=== PATIENT | female | born 1965 | race Caucasian/White ===

== ENCOUNTER → 2019-03-18 09:41 | Outpatient (BNVA) | payer MEDICARE, OTHER, SELFPAY | PROVIDERS: Family Provider Internal Medicine; PCP Internal Medicine; Visit Provider Internal Medicine | DX: J44.9 Chronic obstructive pulmonary disease, unspecified (principal); I50.812 Chronic right heart failure; F32.9 Major depressive disorder, single episode, unspecified; E88.01 Alpha-1-antitrypsin deficiency; M51.17 Intervertebral disc disorders with radiculopathy, lumbosacral region | CPT/HCPCS: 80053; 84443; 85025 ==

== ENCOUNTER 2019-07-15 07:55 | Outpatient (CLI) | payer MEDICARE, OTHER, SELFPAY ==
--- NOTE | 2019-07-15 08:30 | CT_ITS ---
WS: [id number] CT CHEST TECHNIQUE: Noncontrast CT of the chest with coronal and sagittal reformatted images. CLINICAL INFORMATION: hemoptysis COMPARISON: CTA chest 01/26/2018 and 01/07/2018. CT chest November 03, 2017, July 09, 2017. DLP: 723.[address] scans at [facility] use at least one of these dose optimization techniques: automat ed exposure control; mA and/or kV adjustment per patient size (includes targeted exams where dose is matched to clinical indication); or iterative reconstruction. FINDINGS: Severe chronic bullous emphysematous change worse in the lung apices. Hyperinflation. Previously righ t middle lobe and right lower lobe infiltrates and atelectasis have resolved since the prior examinat ion. Slight atelectasis in the lingula. No acute-appearing pulmonary infiltrates today. No consolidat ion or pleural fluid. No suspicious pulmonary parenchymal abnormalities. No mediastinal or hilar lymphadenopathy. Previously described right hilar lymph node measuring 9 mm h as decreased in size. No axillary lymphadenopathy. Adrenal glands are normal. Upper abdominal aorta i s normal. Cardiomegaly. No significant pericardial effusion. Small hiatal hernia. CT/CT chest wo con [id number] IMPRESSION: 1. Severe chronic emphysematous changes with bullous formation. 2. Previously described pulmonary infiltrates have resolved. No new pulmonary infiltrates. 3. No suspicious pulmonary parenchymal abnormalities. 4. No mediastinal or hilar lymphadenopathy today.
== END 2019-07-15 07:56 | disposition home or self-care (01) ==
LOC: RADWPI 08:02
PROVIDERS: Family Provider Internal Medicine; PCP Internal Medicine; Visit Provider Internal Medicine Critical Care Medicine
DX: R04.2 Hemoptysis (principal)
CPT/HCPCS: 71250

== ENCOUNTER 2019-11-26 08:37 | Outpatient (CLI) | payer MEDICARE, OTHER, SELFPAY ==
--- NOTE | 2019-11-26 08:44 | XR_ITS ---
WS: [id number] Chest 2 views, 11/26/2019 Clinical Data: WL Comparison: Portable chest, 11/09/2018. Findings: No nodules, masses or effusions are seen. The heart is normal. The pulmonary vascularity is not increased. No pneumonia or pneumothorax is seen. The diaphragms are flattened. There is a healed left lateral sixth rib fracture. XR/XR chest 2V* [id number] Impression: Hyperinflation.
[2019-11-26 09:30] LABS: Basophils # 0.1 10^3/uL (0.0-0.1); Basophils % 0.6 %; Eosinophils # 0.2 10^3/uL (0.0-0.8); Eosinophils % 1.3 %; Hematocrit 48.5 % (37.0-47.0); Hemoglobin 15.9 g/dL (11.5-15.3); Lymphocytes # 2.2 10^3/uL (0.8-4.8); Lymphocytes % 14.5 %; Mean Corpuscular HGB Conc 32.8 g/dL (30.0-36.0); Mean Corpuscular Hemoglobin 30.4 pg (28.0-34.0); Mean Corpuscular Volume 92.7 fL (81-99); Mean Platelet Volume 12.3 fL (7.4-10.4); Monocytes # 1.1 10^3/uL (0.2-0.9); Neutrophils # 11.49 10^3/uL (1.8-7.7); Neutrophils % 76.1 %; Nucleated Red Blood Cells % 0 %; Platelet Count 306 10^3/cmm (130-400); Red Blood Count 5.23 10^6/uL (4.1-5.3); Red Cell Distribution Width 14.6 % (12.1-15.1); White Blood Count 15.1 10^3/uL (4.0-10.0)
[2019-11-26 10:09] LABS: Alanine Aminotransferase 17 U/L (0-33); Albumin Level 4.5 g/dL (3.5-5.2); Alkaline Phosphatase 100 IU/L (35-105); Anion Gap 15.3 (5-19); Aspartate Amino Transferase 23 U/L (0-32); Blood Urea Nitrogen 4 mg/dL (6-20); Calcium 9.4 mg/dL (8.5-10.5); Carbon Dioxide 30 mmol/L (22-29); Chloride 100 mmol/L (98-107); Globulin 3.2 g/dL (1.3-4.6); Glomerular Filtration Rate 87.5 mL/min (90-130); Glucose 103 mg/dL (65-115); Iron 87 ug/dL (37-145); Osmolality Calculated 290 mOsm/kg (285-295); Potassium 3.3 mmol/L (3.5-5.1); Sodium 142 mmol/L (136-145); Thyroid Stimulating Hormone 1.08 uIU/mL (0.27-4.20); Total Bilirubin 0.3 mg/dL (0.15-1.2); Total Iron Binding Capacity 217 mcg/dl; Total Protein 7.7 g/dL (6.6-8.7); Unsaturated Iron Binding 130 ug/dL (112-347); Vitamin B12 431 pg/mL (232-1245)
[2019-11-26 10:21] LABS: Slide Review Slide Review Perform
[2019-11-26 10:28] LABS: Folate Level < 2.0 ng/mL (4.8-37.3)
[2019-11-26 10:59] LABS: Erythrocyte Sedimentation Rate 15 mm/hr (0-15)
== END 2019-11-26 08:38 | disposition home or self-care (01) ==
LOC: RAD 08:42
PROVIDERS: PCP Internal Medicine; Visit Provider Internal Medicine
DX: R63.4 Abnormal weight loss (principal); E11.9 Type 2 diabetes mellitus without complications
CPT/HCPCS: 71046; 80053; 82607; 82746; 83540; 83550; 84443; 85025; 85651

== ENCOUNTER → 2019-11-29 08:44 | Outpatient (BNVA) | payer MEDICARE, OTHER, SELFPAY | PROVIDERS: Family Provider Internal Medicine; PCP Internal Medicine; Visit Provider Internal Medicine | DX: Z11.59 Encounter for screening for other viral diseases (principal) | CPT/HCPCS: 87635 ==

== ENCOUNTER 2019-12-01 09:42 | Outpatient (CLI) | payer MEDICARE, OTHER, SELFPAY ==
--- NOTE | 2019-12-01 09:55 | PFTS_ITS ---
Date of Study:12/01/19 Date of Dictation: MECHANICS: Forced vital capacity (FVC) is normal. Forced expiratory volume in one second (FEV1) is reduced. FEV1/FVC is reduced . FLOW VOLUME LOOP: reduced flow at all lung volumes with significant scooping. LUNG VOLUMES: Total lung capacity (TLC) is normal. Residual volume (RV) is increased. DIFFUSING CAPACITY FOR CARBON MONOXIDE: Normal. INTERPRETATION: The pulmonary function tests are consistent with moderate airflow obstruction. There is significant postbronchodilator response. Lung volumes are consistent with air trapping. Gas exchange (DLCO) is normal. MTDD
[2019-12-01 15:03] VITALS: O2SAT 79; O2SAT 94
== END 2019-12-01 09:43 | disposition home or self-care (01) ==
LOC: RT 09:43
PROVIDERS: Family Provider Internal Medicine; PCP Internal Medicine; Visit Provider Internal Medicine Critical Care Medicine
DX: J96.11 Chronic respiratory failure with hypoxia (principal)
CPT/HCPCS: 94060; 94726; 94729; J7611

== ENCOUNTER 2020-06-07 12:54 | Outpatient (CLI) | payer MEDICARE, OTHER, SELFPAY ==
--- NOTE | 2020-06-07 13:00 | CT_ITS ---
WS: [id number] LDCT LUNG CANCER SCREENING HISTORY: NICOTINE DEPENDENCE TECHNIQUE: Axial imaging performed from the apices to 1 cm below the costophrenic angles. Coronal and sagittal reformats are submitted with axial MIP series. All CT scans at [facility] use at least one of these dose optimization techniques: automated exposure control; mA and/or kV adjustment per patient size (includes targeted exams where dose is matched to clinical indication); or iterativ e reconstruction. DLP: 56.17 mGy.cm DIvol: 1.58 mGy COMPARISON: 07/15/2019 Diagnostic quality: Satisfactory Lung Nodules: No pulmonary nodules are identified. There are a few areas of mosaic attenuation from t he severe bullous emphysema. No subsolid nodule or endobronchial lesion. Lungs: Severe bullous emphysema. There are a few scattered benign granulomata. Heart: Normal size heart. No effusions. Other findings: Pulmonary hypertension. Mild atherosclerosis aorta. Small hiatal hernia. CT/CT lung screening [id number] IMPRESSION: LUNG-RADS: 1-Negative FOLLOW UP: 12 Month: Continue annual screening with LDCT OTHER FINDINGS (S MODIFIER): None.
== END 2020-06-07 12:55 | disposition home or self-care (01) ==
LOC: RAD 12:56
PROVIDERS: PCP Internal Medicine; Visit Provider Internal Medicine Critical Care Medicine
DX: Z12.2 Encounter for screening for malignant neoplasm of respiratory organs (principal); F17.210 Nicotine dependence, cigarettes, uncomplicated; I27.20 Pulmonary hypertension, unspecified; I70.0 Atherosclerosis of aorta; K44.9 Diaphragmatic hernia without obstruction or gangrene
CPT/HCPCS: 71271

== ENCOUNTER → 2020-10-24 10:52 | Outpatient (BNVA) | payer MEDICARE, OTHER, SELFPAY | PROVIDERS: PCP Internal Medicine; Visit Provider Internal Medicine | DX: J44.9 Chronic obstructive pulmonary disease, unspecified (principal); R64 Cachexia; I27.20 Pulmonary hypertension, unspecified; E78.5 Hyperlipidemia, unspecified | CPT/HCPCS: 80053; 82607; 82746; 83550; 84443; 85651 ==

== ENCOUNTER 2020-10-25 09:54 | Outpatient (CLI) | payer MEDICARE, OTHER, SELFPAY ==
--- NOTE | 2020-10-25 10:09 | XR_ITS ---
WS: [id number] Chest 2 views, 10/25/2020 Clinical Data: WL Comparison: PA and lateral chest, 11/26/2019. Findings: No nodules, masses or effusions are seen. The heart is normal. The pulmonary vascularity is not increased. No pneumonia or pneumothorax is seen. There is bullous emphysema throughout the lungs especially in the upper lobes. The diaphragms are flattened. There is a compression fracture of the T10 vertebral body and the L1 vertebral body with loss of 50% of the central vertebral body height. T hese fractures are of indeterminate age. XR/XR chest 2V* [id number] Impression: 1. Hyperinflation with bullous emphysema. 2. T10 and L1 compression fractures of indeterminate age.
== END 2020-10-25 09:55 | disposition home or self-care (01) ==
PROVIDERS: PCP Internal Medicine; Visit Provider Internal Medicine
DX: R63.4 Abnormal weight loss (principal); J43.8 Other emphysema; S22.079A Unspecified fracture of T9-T10 vertebra, initial encounter for closed fracture; S32.019A Unspecified fracture of first lumbar vertebra, initial encounter for closed fracture; X58.XXXA Exposure to other specified factors, initial encounter
CPT/HCPCS: 71046

== ENCOUNTER 2020-12-13 08:22 | Outpatient (CLI) | payer MEDICARE, OTHER, SELFPAY ==
--- NOTE | 2020-12-13 08:31 | XR_ITS ---
WS: [id number] Exam: XR thoracic spine 2V [id number] Date/Time of Exam: 12/13/2020 8:45 AM Reason For Exam: new compression fractures Compared to chest CT scan performed 06/07/2020. Compression fracture of the upper plate of T10 noted with about 50% loss of vertebral height and no s ignificant posterior displacement. This was present on the prior CT scan performed 06/07/2020. No othe r fractures of the T-spine are noted. Increased kyphosis and osteopenia noted. Paraspinal soft tissue s are unremarkable. XR/XR thoracic spine 2V [id number] IMPRESSION: 1. Compression fracture of the upper plate of T10 with about 50% loss in verteb ral height and no posterior displacement. This appears to represent a healed fr acture and can be seen on the previous chest CT scan dated 06/07/2020. 2. Mild degenerative changes, increased kyphosis and osteopenia. No other fract ures.
== END 2020-12-13 08:23 | disposition home or self-care (01) ==
LOC: RAD 08:28
PROVIDERS: PCP Internal Medicine; Visit Provider Internal Medicine
DX: S22.070A Wedge compression fracture of T9-T10 vertebra, initial encounter for closed fracture (principal); X58.XXXA Exposure to other specified factors, initial encounter
CPT/HCPCS: 72070

== ENCOUNTER → 2020-12-26 09:48 | Outpatient (BNVA) | payer MEDICARE, OTHER, SELFPAY | PROVIDERS: PCP Internal Medicine; Referring Provider Internal Medicine; Visit Provider Orthopaedic Surgery | DX: S22.071A Stable burst fracture of T9-T10 vertebra, initial encounter for closed fracture (principal); X58.XXXA Exposure to other specified factors, initial encounter; M54.9 Dorsalgia, unspecified | CPT/HCPCS: 72070; 72100 ==

== ENCOUNTER 2021-01-08 12:51 | Outpatient (CLI) | payer MEDICARE, OTHER, SELFPAY ==
--- NOTE | 2021-01-08 13:00 | MR_ITS ---
WS: [id number] MRI LUMBAR SPINE NONCONTRAST TECHNIQUE: Sagittal T1, T2 and STIR imaging. Axial T1 and T2 imaging. CLINICAL INFORMATION: M54.5 - Low back pain COMPARISON: MRI 2018 FINDINGS: Mild lumbar curve. No acute compression. Chronic compression with anterior wedging at T11. Mild compr ession superior endplate L2 with minimal retropulsion of the posterior superior cortex. Trace edema i n the superior endplate. This is likely subacute to chronic.This is new since 2018. L1-L2: Mild annular bulging. Slight effacement of ventral thecal sac. Mild facet arthropathy. Spinal canal and foramen are patent. L2-L3: Mild disc bulging eccentric to the left. Slight impingement on the left subarticular recess an d traversing left L3 nerve root. Mild central canal stenosis. Mild facet arthropathy. Foramen are pat ent. L3-L4: Mild disc bulging with mild central canal stenosis. Slight impingement on the traversing L4 ne rve roots bilaterally. Foramen are patent. L4-L5: Mild annular bulging. Slight impingement traversing left L5 nerve root. Mild facet arthropathy . Mild bilateral proximal foraminal narrowing. L5-S1: Mild annular bulging with osteophytic ridging. Moderate facet arthropathy. Spinal canal and fo ramen are patent. Visualized pelvic bony structures: Normal. Paravertebral soft tissues: Normal. MR/MR lumbar spine wo con* [id number] IMPRESSION: 1. Mild lumbar curve. 2. Mild compression superior endplate L2 is new since 2018. Trace edema in the superior endplate with minimal retropulsion. This likely subacute to chronic. 3. Chronic appearing anterior wedging and compression of the T11 vertebral bod y. 4. Disc bulging L2-3 eccentric to the left with mild central canal stenosis an d impingement traversing left L3 nerve root. 5. Annular bulging L3-4 with impingement on traversing right greater than left L4 nerve roots. Mild central canal stenosis. 6. Mild annular bulging L4-5 impinges the traversing left L5 nerve root. 7. Moderate facet arthropathy L5-S1.
--- NOTE | 2021-01-08 13:00 | MR_ITS ---
WS: [id number] MRI THORACIC SPINE WITHOUT CONTRAST TECHNIQUE: Sagittal T1, T2 and STIR imaging. Axial T2 imaging. Noncontrast imaging obtained. CLINICAL INFORMATION: M54.5 - Low back pain COMPARISON: None. FINDINGS: Mild thoracic curve. Moderate thoracic kyphosis. Chronic appearing compression anterior wedging T11 v ertebral body. No significant edema. Subacute to chronic compression of the L2 superior endplate desc ribed on the lumbar spine MRI. Cord signal is normal. Small central disc protrusions more prominent at left T11-T12 with mild central canal stenosis and sl ight indentation on the left ventral thoracic cord. Moderate facet arthropathy in the lower thoracic spine. Normal caliber thoracic aorta. Small central protrusion cervical spine on the web assistant imaging at C5-6. MR/MR thoracic spin wo con* [id number] IMPRESSION: 1. Chronic appearing anterior wedging with compression T11 vertebral body. 2. Left pericentral protrusion T11-T12 impinges the left ventral thoracic cord with mild central canal stenosis. Cord signal is normal. 3. Moderate facet arthropathy lower thoracic spine. 4. Compression superior endplate L2 described on the lumbar spine MRI.
== END 2021-01-08 12:52 | disposition home or self-care (01) ==
LOC: RADSHAW 12:53 → WPI 12:58
PROVIDERS: PCP Internal Medicine; Visit Provider Orthopaedic Surgery
DX: M47.814 Spondylosis without myelopathy or radiculopathy, thoracic region (principal); M51.24 Other intervertebral disc displacement, thoracic region
CPT/HCPCS: 72146; 72148

== ENCOUNTER → 2021-01-31 09:53 | Outpatient (BNVA) | payer MEDICARE, OTHER, SELFPAY | PROVIDERS: PCP Internal Medicine; Visit Provider Anesthesiology Pain Medicine | DX: S22.000A Wedge compression fracture of unspecified thoracic vertebra, initial encounter for closed fracture (principal); S32.020A Wedge compression fracture of second lumbar vertebra, initial encounter for closed fracture; J44.9 Chronic obstructive pulmonary disease, unspecified; R64 Cachexia; I27.20 Pulmonary hypertension, unspecified; Z87.891 Personal history of nicotine dependence; Z79.891 Long term (current) use of opiate analgesic; V89.2XXA Person injured in unspecified motor-vehicle accident, traffic, initial encounter | CPT/HCPCS: 99204; 99205 ==

== ENCOUNTER → 2021-02-12 10:15 | Outpatient (BNVA) | payer MEDICARE, OTHER, SELFPAY | PROVIDERS: PCP Internal Medicine; Visit Provider Anesthesiology Pain Medicine | DX: Z20.822 Contact with and (suspected) exposure to COVID-19 (principal) | CPT/HCPCS: 87635 ==

== ENCOUNTER 2021-02-15 06:25 | Day surgery (SDC) | payer MEDICARE, OTHER, SELFPAY ==
[2021-02-14 15:52] VITALS: BMI 15.4
[2021-02-15] VITALS (9 sets, daily range): BP systolic 81–102; BP diastolic 50–63; PULSE 80–106; RESP 16–28; TEMP 36.4–37.3; O2SAT 90–100
--- NOTE | 2021-02-15 | SCC_ITS ---
PROCEDURE: 1. L2 Kyphoplasty 2. Fluoroscopic Guidance of the above 171 seconds of fluoroscopic guidance, for a cumulative dose of 48.87 mGy, was provided to Dr. Buck by the radiology department. C-arm images of the lumbar spine were saved for the patient's permanent record. [facility]
--- NOTE | 2021-02-15 06:59 | ECG_ITS ---
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 Measurements Intervals [place] Rate: 97 P: 71 ND: 124 QRS: 77 QRSD: 94 T: 57 QT: 395 QTc: 503 Interpretive Statements SINUS RHYTHM POSSIBLE ANTERIOR MYOCARDIAL INFARCTION , PROBABLY OLD [30 ms Q WAVE IN V3/V4, OR R < 0.2 mV IN V4] Compared to ECG 11/09/2018 08:01:52 Myocardial infarct finding now present Electronically Signed On 02-15-2021 16:07:53 RN EMERGENCY by Laura Collins M.D. [id number]
[2021-02-15] MEDS: sodium chloride 0.9% 1,000 ML 30 ML IV (07:19)
--- NOTE | 2021-02-15 07:44 | ANES.PREANE2 ---
Pre-Anesthetic Assessment Pre-Anesthetic Assessment: Height/Weight: Height 1.63 m Weight 40.823 kg Temp Pulse Resp BP Pulse Ox 98.7 F 106 H 17 91/63 98 02/15/21 06:42 02/15/21 06:42 02/15/21 06:42 02/15/21 06:42 02/15/21 06:42 Proposed Procedure: Operation Date: 02/15/21 08:20 Proposed Procedures p L2 Kyphoplasty S32.020A 53556(Not Applicable) - Francesco Buck MD Was Beta Yuni taken within 24 hours: Yes Was Clonidine taken within 24 hours: N/A Last intake: Intake Last Liquid Date 02/15/21 Last Liquid Time 00:00 Last Solid Date 02/15/21 Last Solid Time 00:00 Social: Social History: No alcohol and No tobacco Comment: COPD related to tobacco use in past Airway: Submandibular: WNL Cervical ROM: WNL (Limited extension) MP: 2 Dentition: Chipped Pulmonary: Pulmonary: COPD, YANEZ and SOB CV/HEM: CV/HEM: CHF Comments: Right sided heart failure per patient Sinus rhythm on EKG today, poor baseline on tracing : : None reported Hepatic: Hepatic: None reported GI: GI: None reported Metabolic: Metabolic: None reported Musc/skel: Musc/skel: None reported Neuropsych: Neuropsych: Anxiety Anesthetic Plan: ASA status: 4 Anesthesia: Anesthesia Evaluation, General and MAC Risk of > 500 ml blood loss (7ml/kg in children): No PFSH Anesthesia PFSH: Medical History Anxiety Chronic right heart failure COPD (chronic obstructive pulmonary disease) Cough with hemoptysis Dyslipidemia H/O Prinzmetal angina Heterozygous alpha 1-antitrypsin deficiency Intervertebral disc disorders with radiculopathy, lumbosacral region Low back pain Nicotine dependence, unspecified, uncomplicated Panlobular emphysema Reactive depression Surgical History History of esophagogastroduodenoscopy (EGD) 02/19/2016- HITAL HERNIA- ESOPHAGITIS- AND ESOPHAGEAL MONILIASIS Hx of tubal ligation S/P lumbar discectomy Family History Father Myocardial infarct Stroke Lung disease Hypertension Brother Myocardial infarct Sister Anemia Diabetes Lung disease Hypertension Beqgl-1-ohpwraobvex deficiency Mother Diabetes Lung disease Aoxwd-2-fvgzvhwynaa deficiency Social History Quit status (tobacco): considering quitting Second hand smoke exposure: Yes Smoking risk assessment/counseling performed?: Yes Alcohol intake: current Alcohol intake frequency: holidays/special occasions only Counseling given: Yes Counseling given: No Lives independently: Yes Household members: spouse Housing: House Marital status: Current occupational status: disabled History of recent travel: No Current gender identity: Female Data Anesthesia CBC & Chem 7: 02/15/21 07:15 Cardiac Studies: No Data to Display
[2021-02-15 08:10] LABS: Anion Gap 15.7 (5-19); Blood Urea Nitrogen 7 mg/dL (6-20); Calcium 8.2 mg/dL (8.5-10.5); Carbon Dioxide 26 mmol/L (22-29); Chloride 95 mmol/L (98-107); Creatinine Clr Calc Pharmacy 69.0778; Glomerular Filtration Rate 104.2 mL/min (90-130); Glucose 127 mg/dL (65-115); Osmolality Calculated 276 mOsm/kg (285-295); Potassium 3.7 mmol/L (3.5-5.1); Sodium 133 mmol/L (136-145)
--- NOTE | 2021-02-15 08:20 | W.PM.OPSUD ---
Surgery/Procedure H&P Update DATE OF PROCEDURE: February 15, 2021 DATE H&P PERFORMED: 01/31/21 H&P UPDATE INFORMATION: I have reviewed H&P completed within last 30 days and No changes to prior documentation PLANNED PROCEDURE: Operation Date: 02/15/21 08:20 Proposed Procedures p L2 Kyphoplasty S32.020A 45905(Not Applicable) - Francesco Buck MD
--- NOTE | 2021-02-15 08:22 | P.OP_ITS ---
Operative Report Date of procedure: February 15, 2021 . PREOPERATIVE DIAGNOSIS: T12 vertebral compression fracture POSTOPERATIVE DIAGNOSIS: Same PROCEDURE: 1. L2 Kyphoplasty 2. Fluoroscopic Guidance of the above SURGEON: Francesco Buck M.D. ANESTHESIA: Local Anesthesia PROCEDURE IN DETAIL: Informed consent was obtained, explaining risks, benefits, and alternatives of the procedure to the patient. Operative site was marked in the holding area. The patient was then taken to the procedure room and placed in the prone position on the procedure table. The back and buttocks were prepped with ChloraPrep solution and a sterile drape was applied. A time-out was performed to verify the correct patient, procedure, and location. Using fluoroscopy, the spine was examined. The ( L2) level was verified in AP and lateral views. I planned a bilateral trans pedicular approach. A skin wheal was raised and the subcutaneous tissues anesthetized with 1% lidocaine approximately 5ml on the right side. A small stab incision was made with a #15 blade. The introducer cannula was advanced to dock with the pedicle in an AP view. It was advanced through the pedicle using a mallet in both AP and lateral views, taking care not to traverse the medial aspect of the pedicle in the AP view until the tip was into the vertebral body. The cannula was advanced to the posterior third of the body in a lateral view. The manual drill was used to then create space into which deploy the balloon. Balloon was then placed and inflated. Position in AP and lateral views was optimal. Next a skin wheal was raised and the subcutaneous tissues anesthetized with 1% lidocaine approximately 5ml on the left side. A small stab incision was made with a #15 blade. The introducer cannula was advanced to dock with the pedicle in an AP view. It was advanced through the pedicle using a mallet in both AP and lateral views, taking care not to traverse the medial aspect of the pedicle in the AP view until the tip was into the vertebral body. The cannula was advanced to the posterior third of the body in a lateral view. The manual d rill was used to then create space into which deploy the balloon. Balloon was then placed and inflated. Position in AP and lateral views was optimal. Next I placed left and right coaxial 15mm balloon creating a cavity for the cement. Balloons were removed and I placed barium impregnated PMMA cement under direct fluoroscopic visualization ruling out extravasation or vascular uptake. There was good interdigitization and filling of the vertebral body. The cannulas were removed making sure not to withdraw any cement. 3-0 nylon was used to close the minimal incision and sterile dressing was applied. The patient tolerated the procedure well with no apparent complications. IMPRESSION: successful kyphoplasty of T12 vertebral body. Associated Problem List Diagnoses (1) Compression fracture of L2 lumbar vertebra:
[2021-02-15] MEDS: ceFAZolin 1,000 MG in sodium chloride 0.9% (plus) 50 ML 100 MG IV (08:27)
--- NOTE | 2021-02-15 08:34 | SC_ITS ---
WS: [id number] INTRAOPERATIVE TECHNIQUE: 4 Spot fluoroscopic images for intraoperative purposes. FLUOROSCOPY TIME: 63.2 seconds CLINICAL INFORMATION: SURGERY COMPARISON: None. FINDINGS: Kyphoplasty changes compression fracture near the thoracolumbar junction. SC/C-arm FL for Kyphoplasty IMPRESSION: Images obtained for intraoperative purposes.
[2021-02-15] MEDS: iohexol 300 mg/mL 50 mL Btl (OR ONLY) XX (08:59)
--- NOTE | 2021-02-15 09:26 | PM.PACU ---
Documented by User: Josh Perez CRNA 02/15/21 09:27 PACU note PACU note: VSS, Good respiratory effort, report to IRB COMPLIANCE COORDINATOR Post-Anesthesia Exam: awake
--- NOTE | 2021-02-15 13:16 | ANE.PACU2 ---
Inpatient post-anesthesia follow up: Airway intact: Yes Vital signs: Temperature 97.9 F Pulse Rate 80 Respiratory Rate 18 Blood Pressure 95/53 Pulse Oximetry 94 Oxygen Delivery Me thod Nasal Cannula Oxygen Flow Rate 3 Fraction of Inspir ed Oxygen Hydration adequate: Yes Nausea and vomiting: Yes Pain level: Baseline Mental status: Baseline
--- NOTE | 2021-02-15 13:17 | ANE.PACU2 ---
Inpatient post-anesthesia follow up: Airway intact: Yes Vital signs: Temperature 97.9 F Pulse Rate 80 Respiratory Rate 18 Blood Pressure 95/53 Pulse Oximetry 94 Oxygen Delivery Me thod Nasal Cannula Oxygen Flow Rate 3 Fraction of Inspir ed Oxygen Hydration adequate: Yes Nausea and vomiting: Yes Pain level: Back to baseline Mental status: Baseline
== END 2021-02-15 10:52 | disposition home or self-care (01) ==
PROVIDERS: Anesthesiology; PCP Internal Medicine; Visit Provider Anesthesiology Pain Medicine
PROC: (CPT 22514; principal; 2021-02-15 08:10)
DX: S32.020A Wedge compression fracture of second lumbar vertebra, initial encounter for closed fracture (principal); X58.XXXA Exposure to other specified factors, initial encounter; F17.210 Nicotine dependence, cigarettes, uncomplicated; I50.9 Heart failure, unspecified; F41.9 Anxiety disorder, unspecified; E78.5 Hyperlipidemia, unspecified; J43.9 Emphysema, unspecified; Z82.49 Family history of ischemic heart disease and other diseases of the circulatory system; Z83.3 Family history of diabetes mellitus
CPT/HCPCS: 22514; 76000; 80048; 93005; J0690; J2250; J2704; J3010; J7030

== ENCOUNTER 2021-02-17 19:24 | Emergency (ER) | payer MEDICARE, OTHER, SELFPAY ==
[2021-02-17 19:38] VITALS: BP 101/65; PULSE 98; RESP 16; TEMP 36.5; O2SAT 98
[2021-02-17 20:27] VITALS: BP 96/68; PULSE 84; RESP 16; O2SAT 98
--- NOTE | 2021-02-17 20:36 | XRR_ITS ---
PROCEDURE INFORMATION: Exam: XR Chest Exam date and time: 02/17/2021 8:36 PM Age: 55 years old Clinical indication: Pain; Chest pressure; Additional info: Cp TECHNIQUE: Imaging protocol: XR of the chest. Views: 1 view. COMPARISON: 1. CR XR chest 2V* [id number] 10/25/2020 10:[address] chest wo con [id number] 07/15/2019 8:31:27 AM FINDINGS: Lungs: Severe emphysema with scattered interstitial scarring. Increased interstitial opacities in the lung bases, right greater than left. Possible 1.9 cm nodular density in the right upper lobe. Pleural spaces: Unremarkable. No pleural effusion. No pneumothorax. Heart/Mediastinum: Unremarkable. No cardiomegaly. Bones/joints: Lumbar kyphoplasty. XR/XR chest 1V portable [id number] IMPRESSION: 1. Increased interstitial opacities in the lung bases could represent atelectasis or pulmonary edema. 2. Possible new 1.9 nodule in the right upper lobe. Follow-up with CT imaging is recommended. Radiation Dose CTDIVOL = (mGy): DLP = (mGy-cm)
--- NOTE | 2021-02-17 20:38 | ECG_ITS ---
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 Measurements Intervals [place] Rate: 87 P: 56 [place]: 142 QRS: 75 QRSD: 90 T: 52 QT: 409 QTc: 492 Interpretive Statements SINUS RHYTHM Compared to ECG 02/15/2021 07:25:30 Myocardial infarct finding no longer present Electronically Signed On 02-18-2021 13:17:09 STONE RUBBER by Junior Gaytan M.D. [id number]
--- NOTE | 2021-02-17 20:44 | USR_ITS ---
PROCEDURE INFORMATION: Exam: US Duplex Lower Extremity Veins, Bilateral Exam date and time: 02/17/2021 8:44 PM Age: 55 years old Clinical indication: Pain; Leg, lower; Left; Additional info: Bilateral leg swelling post op TECHNIQUE: Imaging protocol: Real-time duplex ultrasound of the extremities with 2-D way scale, color Doppler flow and spectral waveform analysis with image documentation. Complete exam focused on the bilateral lower extremity veins. COMPARISON: CTA Chest w Abd/Pel w* 12/03/2017 12:03 PM FINDINGS: Right deep veins: Unremarkable. The common femoral, femoral, proximal profunda femoral and popliteal veins are patent without thrombus. Normal Doppler waveforms. Normal compressibility and/or augmentation response. Right superficial veins: Saphenofemoral junction is patent without thrombus. Left deep veins: Nonocclusive thrombus and incomplete compressibility of the left peroneal vein. The other deep veins of the left lower extremity demonstrate normal flow, compressibility, and augmentation. Left superficial veins: Saphenofemoral junction is patent without thrombus. Soft tissues: Unremarkable. US/CV venous duplex [facility] [id number] IMPRESSION: 1. Nonocclusive deep vein thrombosis in the left peroneal vein. 2. No deep vein thrombosis in the right lower extremity. Radiation Dose CTDIVOL = (mGy): DLP = (mGy-cm)
--- NOTE | 2021-02-17 20:57 | ED_ITS ---
HPI - General Adult General: Chief complaint: General Medical Stated complaint: pain under L arm, legs swelling post surgery Time Seen by Provider: 02/17/21 19:44 History of Present Illness: HPI narrative: 55-year-old female who had surgery on her lumbar spine, minimally invasive, 2 days ago. She presents today with bilateral lower extremity swelling, and a pleuritic type pain to her left lateral chest wall. She noticed these yesterday, but they became worse today. She has had a bit of an increased cough since surgery, with no sputum production. No fever. She notes no significant calf tenderness. She is mildly short of breath.. She has no known history of coronary disease although she has been told that she had a heart attack in the past based on echocardiogram she had prior Onset (ago): day(s) (1) Location: chest Radiation: non-radiation Severity: moderate Quality: stabbing Pain Consistency: constant Exacerbating factors: movement and other Associated symptoms: Reports chest pain and cough; Deny confusion, diaphoresis, dyspnea, fevers/chills, headache(s), nausea, short of breath or vomiting Review of Systems Const: Denies: diaphoresis Card: Reports: chest pain Resp: Denies: dyspnea GI: Denies: nausea or vomiting Neuro: Denies: headache(s) or confusion PFSH ED PFSH: Medical History Anxiety Chronic right heart failure COPD (chronic obstructive pulmonary disease) Cough with hemoptysis Dyslipidemia H/O Prinzmetal angina Heterozygous alpha 1-antitrypsin deficiency Intervertebral disc disorders with radiculopathy, lumbosacral region Low back pain Nicotine dependence, unspecified, uncomplicated Panlobular emphysema Reactive depression Surgical History History of esophagogastroduodenoscopy (EGD) 02/19/2016- HITAL HERNIA- ESOPHAGITIS- AND ESOPHAGEAL MONILIASIS Hx of tubal ligation S/P lumbar discectomy Family History Father Myocardial infarct Stroke Lung disease Hypertension Brother Myocardial infarct Sister Anemia Diabetes Lung disease Hypertension Cbyfo-1-tovvpjkpyts deficiency Mother Diabetes Lung disease Hyask-1-bnclzyegfod deficiency Social History Quit status (tobacco): considering quitting Second hand smoke exposure: Yes Smoking risk assessment/counseling performed?: Yes Alcohol intake: current Alcohol intake frequency: holidays/special occasions only Counseling given: Yes Counseling given: No Lives independently: Yes Household members: spouse Housing: House Marital status: Current occupational status: disabled History of recent travel: No Current gender identity: Female Physical Exam Const: COMMON NORMALS: no acute distress, patient oriented x3 and alert HENMT: COMMON NORMALS: normocephalic HEAD & SCALP: normocephalic Chest: COMMONS NORMALS: normal inspection of the chest CHEST: Yes tenderness (left lateral chest wall) Resp: COMMON NORMALS: normal respiratory effort, No use of accessory muscles and clear to auscultation bilaterally AUSCULTATION: clear to auscultation bilaterally Cardio: COMMON NORMALS: regular rate and regular rhythm RATE: regular rate RHYTHM: regular rhythm GI: COMMON NORMALS: Normal to inspection, nondistended, normoactive bowel sounds present, Soft to palpation and non-tender PALPATION: Yes Soft to palpation Extremity: NARRATIVE EXTREMITY EXAM: minimal non pitting edema. Neuro: COMMON NORMALS: patient oriented x3 SENSORIUM/ORIENTATION: Yes alert Course Vital Signs: Vital signs: Vital Signs Temperature 97.7 F 02/17/21 19:38 Pulse Rate 81 02/18/21 00:47 Respiratory Rate 16 02/18/21 00:47 Blood Pressure 108/59 02/18/21 00:47 Pulse Oximetry 96 02/18/21 00:47 MDM - General Adult MDM Narrative: Medical decision making narrative: 55-year-old female had kyphoplasty a couple of days ago. She presents with leg pain and swelling, and the left lateral chest wall pain. Her white blood cell count is 17. Hemoglobin is 11. D-dimer minimally elevated at 0.7. Pain is reproducible to the left chest wall. Bilateral ultrasound Dopplers of the venous system reveal a left peroneal vein nonobstructive DVT. CTA is negative for pulmonary embolism. It does show a potentially new T11 compression fracture with other age- indeterminate fractures. This may be the source of her lateral chest pain. There is no infiltrate or other cause. Her delta troponin did not elevate. She will be treated with a loading dose of Eliquis followed by regular dose Eliquis for acute DVT. She will be treated with pain control for the T11 compression fracture. She will follow up with pain management and her PCP. As she was only on 2.5 apixaban twice daily, we would not consider this a complete failure of apixaban therapy Lab Data: Labs: Lab Results 02/17/21 02/17/21 02/17/21 20:44 20:44 20:44 WBC 17.0 10^3/uL H 10 ^3/uL (4.0-10.0) RBC 3.58 10^6/uL L 10 ^6/uL (4.1-5.3) Hgb 10.9 g/dL L g/dL (11.5-15.3) Hct 32.4 % L % (37.0-47.0) MCV 90.5 fl fl (81-99) MCH 30.4 pg pg (28.0-34.0) MCHC 33.6 g/dL g/dL (30.0-36.0) RDW 13.5 % % (12.1-15.1) Plt Count 632 10^3/cmm H 10 ^3/cmm (130-400) MPV 11.1 fL H fL (7.4-10.4) Neut % (Auto) 75.0 % % Lymph % (Auto) 14.4 % % Moffat % (Auto) 8.8 % % Eos % (Auto) 0.6 % % Baso % (Auto) 0.3 % % Neut # (Auto) 12.73 10^3/uL H 1 0^3/uL (1.8-7.7) Lymph # (Auto) 2.5 10^3/uL 10^3/ uL (0.8-4.8) Moffat # (Auto) 1.5 10^3/uL H 10^ 3/uL (0.2-0.9) Eos # (Auto) 0.1 10^3/uL 10^3/ uL (0.0-0.8) Baso # (Auto) 0.1 10^3/uL 10^3/ uL (0.0-0.1) Nucleated RBC % (a uto) 0 % % Nucleated RBCs # 0.0 /100WBC /100W BC D-Dimer 0.70 ug/mIFEU H u g/mIFEU (0-0.59) Sodium 135 mmol/L L mmol /L (136-145) Potassium 3.7 mmol/L mmol/L (3.5-5.1) Chloride 96 mmol/L L mmol/ L (98-107) Carbon Dioxide 28 mmol/L mmol/L (22-29) Anion Gap 14.7 (5-19) BUN 6 mg/dL mg/dL (6-20) Creatinine 0.6 mg/dL mg/dL (0.5-0.9) GFR Calculation 104.2 mL/min mL/m in (90-130) Glucose 93 mg/dL mg/dL (65-115) Calculated Osmolal ity 277 mOsm/kg L mOs m/kg (285-295) Lactate Calcium 8.4 mg/dL L mg/dL (8.5-10.5) Total Bilirubin 0.3 mg/dL mg/dL (0.15-1.2) AST 8 U/L U/L (0-32) ALT 9 U/L U/L (0-33) Alkaline Phosphata se 142 IU/L H IU/L (35-105) Troponin T Baselin e Troponin T 120 Min osmel Delta Troponin T C-Reactive Protein 149.1 mg/L H mg/L (0.0-4.9) NT-Pro-B Natriuret Pep 444 pg/mL H pg/mL (0-125) Total Protein 5.8 g/dL L g/dL (6.6-8.7) Albumin 3.1 g/dL L g/dL (3.5-5.2) Globulin 2.7 g/dL g/dL (1.3-4.6) 02/17/21 02/17/21 02/17/21 20:44 20:44 22:34 WBC RBC Hgb Hct MCV MCH MCHC RDW Plt Count MPV Neut % (Auto) Lymph % (Auto) Moffat % (Auto) Eos % (Auto) Baso % (Auto) Neut # (Auto) Lymph # (Auto) Moffat # (Auto) Eos # (Auto) Baso # (Auto) Nucleated RBC % (a uto) Nucleated RBCs # D-Dimer Sodium Potassium Chloride Carbon Dioxide Anion Gap BUN Creatinine GFR Calculation Glucose Calculated Osmolal ity Lactate 0.8 mmol/L mmol/L (0.5-2.2) Calcium Total Bilirubin AST ALT Alkaline Phosphata se Troponin T Baselin e 12 ng/L H ng/L (0-10) Troponin T 120 Min osmel 9.55 ng/L ng/L (0-10) Delta Troponin T -2.45 ABS# L ABS# (0-10) C-Reactive Protein NT-Pro-B Natriuret Pep Total Protein Albumin Globulin Discharge Plan Discharge Patient Disposition: Home Clinical Impression: Deep venous thrombosis Qualifiers: DVT location: lower extremity Affected thrombotic vein of extremity: peroneal Chronicity: acute Laterality: left Qualified Code(s): I82.452 - Acute embolism and thrombosis of left peroneal vein Closed wedge compression fracture of T11 vertebra Qualifiers: Encounter type: initial encounter Qualified Code(s): S22.080A - Wedge compression fracture of T11-T12 vertebra, initial encounter for closed fracture Condition: Stable Prescriptions: New apixaban 5 mg tablet 5 mg PO BID Qty: 74 RF: 0 No Action melatonin 5 mg capsule 15 mg PO .hs RF: 0 budesonide [Pulmicort] 0.5 mg/2 mL suspension for nebulization 0.5 mg inhalation BID RF: 0 alprazolam [Xanax] 0.5 mg tablet 0.5 mg PO BID PRN (Reason: anxiety) Qty: 60 RF: 1 oxycodone 5 mg tablet 5 mg PO Q6H PRN (Reason: pain) 30 Days Qty: 90 RF: 0 ipratropium-albuterol 0.5 mg-3 mg(2.5 mg base)/3 mL solution for nebulization 3 ml INHALATION Q6H PRN (Reason: shortness of breath or wheezing) 90 Days Qty: 1080 RF: 3 albuterol sulfate [ProAir HFA] 90 mcg/actuation HFA aerosol inhaler 2 puff INHALATION Q6H PRN (Reason: shortness of breath or wheezing) Qty: 18 RF: 3 Eliquis 2.5 mg tablet 2.5 mg PO BID Qty: 180 RF: 2 isosorbide mononitrate 60 mg tablet extended release 24 hr 60 mg PO QAM Qty: 30 RF: 5 aripiprazole [Abilify] 5 mg tablet 5 mg PO DAILY Qty: 90 RF: 3 prednisone 5 mg tablet See Rx Instructions .ROUTE .COMPLEX Qty: 90 RF: 3 lidocaine-prilocaine 2.5-2.5 % cream See Rx Instructions .ROUTE .COMPLEX Qty: 180 RF: 3 pantoprazole [Protonix] 40 mg tablet,delayed release (DR/EC) 40 mg PO DAILY Qty: 90 RF: 3 montelukast [Singulair] 10 mg tablet 10 mg PO DAILY Qty: 90 RF: 3 lidocaine [Lidoderm] 5 % adhesive patch,medicated 1 patch TOPICAL DAILY Qty: 90 RF: 3 fluoxetine 20 mg capsule See Rx Instructions .ROUTE .COMPLEX Qty: 270 RF: 3 ondansetron HCl 4 mg tablet 4 mg PO Q6H PRN (Reason: nausea and vomiting) Qty: 90 RF: 1 folic acid 1 mg tablet 1 mg PO DAILY Qty: 90 RF: 3 Brovana 15 mcg/2 mL solution for nebulization See Rx Instructions .ROUTE .COMPLEX Qty: 360 RF: 3 metoprolol succinate 50 mg tablet extended release 24 hr See Rx Instructions .ROUTE .COMPLEX Qty: 90 RF: 3 diazepam [Valium] 5 mg tablet 5 mg PO ONCE PRN (Reason: anxiety) 1 Days Qty: 1 RF: 0 nitroglycerin 0.4 mg tablet, sublingual See Rx Instructions .ROUTE .COMPLEX Qty: 25 RF: 1 azithromycin 250 mg tablet See Rx Instructions PO .COMPLEX Qty: 6 RF: 0 isosorbide mononitrate 30 mg tablet extended release 24 hr 30 mg PO DAILY RF: 0 Lipitor 10 mg tablet 10 mg PO .at bedtime RF: 0 Cardizem CD 180 mg capsule,extended release 24hr 180 mg PO QAM RF: 0 Lasix 20 mg tablet 20 mg PO QAM RF: 0 Discharge Orders: Discharge ED (Routine); Ordered 02/18/21 Ordered By: Adam Philippe Referrals: Ludin Schmitt MD [Primary Care Provider] - 4-7 days Francesco Buck MD [Physician] - 4-7 days Patient Instructions: Vertebral Compression Fracture (ED), Opioid Safety Activity Restrictions/Additional Instructions: For your new dose of apixaban, take 2 pills twice daily for the first week, then 1 pill twice daily. Return for worsening leg swelling, shortness of breath, chest discomfort, other concerning symptoms. Pain medication as directed by your painter sign maintenance. Coding Level of Care Code ED Commercial Teller for Chg Fwd Exam Detailed
[2021-02-17 21:03] LABS: Basophils # 0.1 10^3/uL (0.0-0.1); Basophils % 0.3 %; Eosinophils # 0.1 10^3/uL (0.0-0.8); Eosinophils % 0.6 %; Hematocrit 32.4 % (37.0-47.0); Hemoglobin 10.9 g/dL (11.5-15.3); Lymphocytes # 2.5 10^3/uL (0.8-4.8); Lymphocytes % 14.4 %; Mean Corpuscular HGB Conc 33.6 g/dL (30.0-36.0); Mean Corpuscular Hemoglobin 30.4 pg (28.0-34.0); Mean Corpuscular Volume 90.5 fl (81-99); Mean Platelet Volume 11.1 fL (7.4-10.4); Monocytes # 1.5 10^3/uL (0.2-0.9); Monocytes % 8.8 %; Neutrophils # 12.73 10^3/uL (1.8-7.7); Nucleated Red Blood Cells % 0 %; Platelet Count 632 10^3/cmm (130-400); Red Blood Count 3.58 10^6/uL (4.1-5.3); Red Cell Distribution Width 13.5 % (12.1-15.1)
[2021-02-17 21:15] LABS: Lactate (Lactic Acid level) 0.8 mmol/L (0.5-2.2)
[2021-02-17 21:18] LABS: Troponin(5th) Baseline 12 ng/L (0-10)
[2021-02-17 21:23] VITALS: BP 108/59; PULSE 85; RESP 16; O2SAT 96
[2021-02-17 21:27] LABS: Alanine Aminotransferase 9 U/L (0-33); Albumin Level 3.1 g/dL (3.5-5.2); Alkaline Phosphatase 142 IU/L (35-105); Anion Gap 14.7 (5-19); Aspartate Amino Transferase 8 U/L (0-32); Blood Urea Nitrogen 6 mg/dL (6-20); C Reactive Protein 149.1 mg/L (0.0-4.9); Calcium 8.4 mg/dL (8.5-10.5); Carbon Dioxide 28 mmol/L (22-29); Chloride 96 mmol/L (98-107); Creatinine Clr Calc Pharmacy 69.0778; Globulin 2.7 g/dL (1.3-4.6); Glomerular Filtration Rate 104.2 mL/min (90-130); Glucose 93 mg/dL (65-115); NT Pro B Type Natriuretic Pept 444 pg/mL (0-125); Osmolality Calculated 277 mOsm/kg (285-295); Potassium 3.7 mmol/L (3.5-5.1); Sodium 135 mmol/L (136-145); Total Bilirubin 0.3 mg/dL (0.15-1.2); Total Protein 5.8 g/dL (6.6-8.7)
--- NOTE | 2021-02-17 21:30 | CTR_ITS ---
PROCEDURE INFORMATION: Exam: CTA Chest With Contrast Exam date and time: 02/17/2021 9:30 PM Age: 55 years old Clinical indication: Pain; Left-sided; Prior surgery; Surgery date: 3-7 days post-operative; Patient HX: Recent kypho C/O L pleuritic cp; Additional info: Chest pain TECHNIQUE: Imaging protocol: Computed tomographic angiography of the chest with contrast. 3D rendering (Not supervised by radiologist): MIP and/or 3D reconstructed images were created by the technologist. Radiation optimization: All CT scans at this facility use at least one of these dose optimization techniques: automated exposure control; mA and/or kV adjustment per patient size (includes targeted exams where dose is matched to clinical indication); or iterative reconstruction. Contrast material: OMNI 350; Contrast volume: 63 ml; Contrast route: INTRAVENOUS (IV); COMPARISON: CTA Chest-Pulmonary Emb [id number] 01/26/2018 11:39 AM RADIATION DOSE METRICS: Total DLP (mGy-cm): 330.59 FINDINGS: Pulmonary arteries: Normal. No pulmonary emboli. Aorta: Unremarkable. No aortic aneurysm. No aortic dissection. Lungs: Severe centrilobular emphysema. Mild atelectasis and scarring in both lungs. No consolidation. Pleural spaces: Unremarkable. No pneumothorax. No pleural effusion. Heart: Small pericardial effusion. Lymph nodes: Prominent mediastinal and hilar lymph nodes are most likely reactive. Bones/joints: New minimal T2 and T4 compression fractures. New moderate T11 compression fracture. L2 compression with kyphoplasty. Soft tissues: Unremarkable. CT/CT angio chest PE protcl [id number] IMPRESSION: 1. No evidence for pulmonary embolus. 2. Severe emphysema. 3. Age indeterminate T2, T4, and T11 compression fractures. These are new since the prior study. Radiation Dose CTDIVOL = (mGy): DLP = 330.59 (mGy-cm)
--- NOTE | 2021-02-17 22:38 | ECG_ITS ---
[facility] Test Date: 2021-02-17 Pat Name: Elsy Soto Department: Room: Gender: Female Branch Administrator: : 1965 Requested By: Adam Bynum Order Number: [id number] Krishnamurthy MD: Junior Gaytan M.D. Measurements Intervals [place] Rate: 86 P: 76 ND: 140 QRS: 86 QRSD: 89 T: 72 QT: 402 QTc: 483 Interpretive Statements SINUS RHYTHM Compared to ECG 02/17/2021 21:00:00 No significant changes Electronically Signed On 02-19-2021 17:11:38 DRY CLEANER by Junior Gaytan M.D. [email or web address] for women [email or web address] [email or web address] Distributionsumma health w[facility].[email or web address]/[id number]
[2021-02-17] MEDS: iohexol 350 mg/mL 100 mL Btl IV (22:46)
[2021-02-17 23:02] LABS: Troponin 5 2HR 9.55 ng/L (0-10)
[2021-02-17 23:04] LABS: Troponin 5 2HR Delta -2.45 ABS# (0-10)
[2021-02-18 00:47] VITALS: BP 108/59; PULSE 81; RESP 16; O2SAT 96
== END 2021-02-18 00:26 | disposition home or self-care (01) ==
PROVIDERS: Emergency Provider Emergency Medicine; PCP Internal Medicine
DX: I82.452 Acute embolism and thrombosis of left peroneal vein (principal); S22.080A Wedge compression fracture of T11-T12 vertebra, initial encounter for closed fracture; Z79.01 Long term (current) use of anticoagulants; I50.9 Heart failure, unspecified; J44.9 Chronic obstructive pulmonary disease, unspecified; E78.5 Hyperlipidemia, unspecified; Z77.22 Contact with and (suspected) exposure to environmental tobacco smoke (acute) (chronic); X58.XXXA Exposure to other specified factors, initial encounter
CPT/HCPCS: 71045; 71275; 80053; 83605; 83880; 84484; 85025; 85378; 86140; 93005; 93970; 99283; Q9967

== ENCOUNTER → 2021-02-22 13:21 | Outpatient (BNVA) | payer MEDICARE, OTHER, SELFPAY | PROVIDERS: PCP Internal Medicine; Visit Provider Anesthesiology Pain Medicine | DX: Z48.89 Encounter for other specified surgical aftercare (principal); M54.50 Low back pain, unspecified; Z87.891 Personal history of nicotine dependence | CPT/HCPCS: 99024 ==

== ENCOUNTER 2021-04-02 09:38 | Outpatient (CLI) | payer MEDICARE, OTHER, SELFPAY ==
[2021-04-02 10:11] VITALS: BMI 13.7
--- NOTE | 2021-04-02 10:15 | NMCV_ITS ---
NM nieves perf SPECT r/s* [id number] Elsy Soto Age: 55 Gender: F : 1965 Exam Date: 04/02/2021 11:06 Ordering Phys: Laura Collins MD ([email or web address]) Technologist: YOGESH Mullen Exam Location: [facility] Indications: CHEST PAIN STRESS TEST Please see separate stress test report in [facility] for full findings IMAGE PROTOCOL Rest/Stress 1 Lexiscan Day Radiopharmaceutical Dose (mCi) Administration Site Administered by Rest: Tc-99m 10.7 IV YOGESH Vang Sestamibi Stress:Tc-99m 32.4 IV YOGESH Vang Sestamibi Rest: 02-Apr-2021 60 Discovery 630 Stress: 02-Apr-2021 30 Discovery 630 0.4mg Lexiscan. Supine position only as patient was unable to lay prone. SPECT RESULTS Technical Quality: Good Raw Data Analysis: Subdiaphragmatic activity; bowel due to body habitus Image Corrections: No attenuation or motion correction applied Summed Stress Score: 0 Summed Rest Score: 0 Summed Difference Score: 0 PERFUSION FINDINGS SPECT images demonstrate homogeneous tracer distribution throughout the myocardium. FUNCTIONAL RESULTS (calculated via Gated SPECT) Stress Image LV EF (%): 88 Stress EDV (mL):68 TID: 1.38 Stress ESV (mL):8 FUNCTIONAL FINDINGS: The left ventricle is normal in size. Transient Ischemia Dilatation of 1.4. There is hyperdynamic left ventricular global systolic function, LVEF=88%. There is hyperdynamic left ventricular wall thickening. No regional wall motion abnormality IMPRESSIONS 1. Myocardial perfusion imaging is normal. 2. Overall left ventricular systolic function is normal without regional wall motion abnormalities. 3. Hyperdynamic left ventricular systolic function, LVEF=88%. 4. Transient ischemic dilation index of 1.4. This may represent hypertensive response/subendocardial ischemia. Clinical correlation is advised. 5. No EKG changes with Lexiscan infusion. Refer to separate report for details. Laura Collins MD (Electronically Signed) Final Date: 03 April 2021 13:30 S
--- NOTE | 2021-04-02 10:15 | ECG_ITS ---
[facility] Test Date: 2021-04-02 Pat Name: Elsy Soto Department: Room: Gender: Female Director Of Direct Marketing: Rhiannakrystle Vazquezerton : 1965 Requested By: Laura Collins Order Number: [id number] Raghu MD: Laura Collins M.D. Interpretive Statements NAME OF STUDY: LEXISCAN SESTAMIBI STRESS TEST INDICATION: Chest Pain PROCEDURE: At the baseline, the blood pressure was 101/79 mm Hg with a heart rate of 78 bpm and oxygen saturation of 98%. The electrocardiogram showed normal sinus rhythm, normal axis and possible old anteroseptal infarct. The Lexiscan was infused over a period of 20 seconds. A total of 0.4 milligrams of Lexiscan was infused. The stress phase was continued for a total of 5 minutes. Heart rate at the end of the stress phase was 107 bpm, oxygen saturation of 97% with a blood pressure of 130/83 mm Hg. The EKG at the peak infusion revealed sinus tachycardia with no significant ST-T wave changes. The study was terminated due to protocol completion. Sestamibi was injected 20 seconds after the Lexiscan infusion. Blood pressure at the end of the recovery phase was 105/76 mm Hg with a heart rate of 97 beats per minute and oxygen saturation of 97%. CONCLUSION: 1. No significant EKG changes with the LexiScan infusion. 2. No LexiScan induced chest pain or cardiac arrhythmia. 3. Normal blood pressure and heart rate response. 4. Sestamibi/sestamibi perfusion scan pending; see separate report. Electronically Signed On 04-02-2021 20:03:36 STUMPER FELLER by Laura Collins M.D. [id number]
[2021-04-02] MEDS: regadenoson 0.4 Mg/5 ml Syringe IVP (11:46)
[2021-04-02] MEDS: ondansetron 2 mg/ML SDV 2 mL 4 MG IVP (11:51)
[2021-04-02 11:57] VITALS: BP 101/79; PULSE 97
== END 2021-04-02 09:39 | disposition home or self-care (01) ==
PROVIDERS: PCP Internal Medicine; Visit Provider Internal Medicine Cardiovascular Disease
DX: R07.9 Chest pain, unspecified (principal); R94.39 Abnormal result of other cardiovascular function study
CPT/HCPCS: 78452; 93017; A9500; J2405; J2785

== ENCOUNTER → 2021-06-13 08:53 | Outpatient (BNVA) | payer MEDICARE, OTHER, SELFPAY | PROVIDERS: PCP Internal Medicine; Visit Provider Internal Medicine Critical Care Medicine | DX: J44.9 Chronic obstructive pulmonary disease, unspecified (principal); I27.82 Chronic pulmonary embolism; J96.11 Chronic respiratory failure with hypoxia; F17.210 Nicotine dependence, cigarettes, uncomplicated; E78.5 Hyperlipidemia, unspecified | CPT/HCPCS: 99214 ==

== ENCOUNTER → 2021-06-22 09:35 | Outpatient (BNVA) | payer MEDICARE, OTHER, SELFPAY | PROVIDERS: PCP Internal Medicine; Visit Provider Internal Medicine Cardiovascular Disease | DX: R07.9 Chest pain, unspecified (principal); I20.1 Angina pectoris with documented spasm; J96.11 Chronic respiratory failure with hypoxia; I27.82 Chronic pulmonary embolism; I27.20 Pulmonary hypertension, unspecified; I50.9 Heart failure, unspecified; J44.9 Chronic obstructive pulmonary disease, unspecified; F17.210 Nicotine dependence, cigarettes, uncomplicated | CPT/HCPCS: 99214 ==

== ENCOUNTER 2021-09-05 09:19 | Outpatient (CLI) | payer MEDICARE, OTHER, SELFPAY ==
--- NOTE | 2021-09-05 09:52 | XR_ITS ---
WS: [id number] Exam: XR chest 2V* [id number] Date/Time of Exam: 09/05/2021 9:52 AM Reason For Exam: Coughing up blood Comparison 02/17/2021. Advanced changes of bullous emphysema and hyperinflation noted. Chronic interstitial changes noted bi laterally. Chronic groundglass densities in the lung bases. No pleural effusion. Normal cardiomediast inal silhouette. Bony structures are intact. Signs of vertebral plasty involving at least one upper l umbar vertebra. XR/XR chest 2V* [id number] IMPRESSION: 1. Advanced changes of bullous emphysema. 2. Chronic groundglass densities in the bilateral lower lung zones. Marked pulm onary hyperinflation.
== END 2021-09-05 09:20 | disposition home or self-care (01) ==
LOC: RAD 09:21
PROVIDERS: PCP Internal Medicine; Visit Provider Internal Medicine Critical Care Medicine
DX: J43.9 Emphysema, unspecified (principal); J98.4 Other disorders of lung; R04.2 Hemoptysis
CPT/HCPCS: 71046

== ENCOUNTER → 2021-10-11 09:17 | Outpatient (BNVA) | payer MEDICARE, OTHER, SELFPAY | PROVIDERS: PCP Internal Medicine; Visit Provider Internal Medicine Critical Care Medicine | DX: J44.9 Chronic obstructive pulmonary disease, unspecified (principal); I50.9 Heart failure, unspecified; J96.11 Chronic respiratory failure with hypoxia | CPT/HCPCS: 99213 ==

== ENCOUNTER 2021-11-07 07:57 | Outpatient (CLI) | payer MEDICARE, OTHER, SELFPAY ==
--- NOTE | 2021-11-07 08:46 | PFTS_ITS ---
Date of Study:11/07/21 Date of Dictation: MECHANICS: Forced vital capacity (FVC) is . Forced expiratory volume in one second (FEV1) is . FEV1/FVC is . FLOW VOLUME LOOP: . LUNG VOLUMES: Total lung capacity (TLC) is . Residual volume (RV) is . DIFFUSING CAPACITY FOR CARBON MONOXIDE: . INTERPRETATION: The pulmonary function tests are . mechanics and lung volumes. Gas exchange (DLCO) is . MTDD
== END 2021-11-07 07:58 | disposition home or self-care (01) ==
LOC: RT 07:57
PROVIDERS: PCP Internal Medicine; Visit Provider Internal Medicine Critical Care Medicine
DX: J44.9 Chronic obstructive pulmonary disease, unspecified (principal)
CPT/HCPCS: 94060; 94726; 94729; J7611

== ENCOUNTER → 2021-12-11 14:30 | Outpatient (BNVA) | payer MEDICARE, OTHER, SELFPAY | PROVIDERS: PCP Internal Medicine; Visit Provider Internal Medicine Critical Care Medicine | DX: J44.9 Chronic obstructive pulmonary disease, unspecified (principal); J96.11 Chronic respiratory failure with hypoxia; I50.9 Heart failure, unspecified; Z86.711 Personal history of pulmonary embolism; Z87.891 Personal history of nicotine dependence; Z99.81 Dependence on supplemental oxygen | CPT/HCPCS: 99214 ==

== ENCOUNTER 2022-01-04 11:30 | Outpatient (CLI) | payer MEDICARE, OTHER, SELFPAY ==
--- NOTE | 2022-01-04 11:45 | USCV_ITS ---
Elsy Soto Age: 56 Gender: F : 1965 Exam Date: 01/04/2022 11:47 Ordering Phys: Torey Chamberlain MD Technologist: Juhi Early Exam Location: [facility] Indication: Heart failure BP: 104 / 84 HR: 74 Rhythm: Sinus Technical Quality: Good MEASUREMENTS (Male / Female) Normal Values 2D ECHO LV Diastolic Diameter PLAX 4.0 cm 4.2 - 5.9 / 3.9 - 5.3 cm LV Systolic Diameter PLAX 3.0 cm IVS Diastolic Thickness 1.0 cm 0.6 - 1.0 / 0.6 - 0.9 cm IVS Systolic Thickness 1.2 cm LVPW Diastolic Thickness 0.7 cm 0.6 - 1.0 / 0.6 - 0.9 cm LVPW Systolic Thickness 1.1 cm LVOT Diameter 2.0 cm LV Ejection Fraction 2D Teich 50.0 % LV Ejection Fraction MOD 2C 78.2 % LV Ejection Fraction 2C AL 80.5 % LA Diameter 2.8 cm LA Width 3.0 cm LA Height 3.9 cm RA Width 3.3 cm RA Height 3.3 cm Aorta at Sinotubular Diameter 2.5 cm IVC Diameter 2.0 cm DOPPLER AV Peak Velocity 90.0 cm/s LVOT Peak Velocity 84.0 cm/s AV Area Cont Eq vti 2.3 cm squared AV Area Cont Eq pk 3.0 cm squared MV Peak Velocity 91.0 cm/s MV Area PHT 3.6 cm squared Mitral E to A Ratio 1.1 MV E' Velocity 53.4 cm/s Mitral E to MV E' Ratio 11.2 Mitral E to LV E' Lateral Ratio 10.1 Mitral E to LV E' Septal Ratio 12.4 TR Peak Velocity 209.8 cm/s TR Peak Gradient 17.6 mmHg Right Atrial Pressure 8.0 mmHg Pulmonary Artery Systolic Pressu 25.6 mmHg PV Peak Velocity 70.0 cm/s RV Acceleration Time 0.1 s RV Ejection Time 0.3 s RV AcT/ET 0.2 FINDINGS Left Ventricle Normal left ventricular size, systolic function and wall thickness, with no regional wall motion abnormalities. Left ventricular ejection fraction is estimated at 70 %. Grade I diastolic dysfunction (abnormal relaxation filling pattern), normal to mildly elevated filling pressures. Right Ventricle Normal right ventricular size and systolic function. Right ventricular systolic pressure 47 mmHg. Right Atrium Normal right atrial size. Left Atrium Mildly increased left atrial size. Mitral Valve Mildly thickened mitral valve. No mitral valve stenosis. Mild mitral valve regurgitation. Aortic Valve Aortic valve not well visualized. No aortic valve stenosis. Trace aortic valve regurgitation. Tricuspid Valve Structurally normal tricuspid valve. No tricuspid valve stenosis. Mild to moderate tricuspid valve regurgitation. Pulmonic Valve Pulmonic valve not well visualized. No pulmonary valve stenosis. No pulmonary valve regurgitation. Pericardium No pericardial effusion. Aorta Normal-sized aortic root. IVC Normal IVC dimension with >50% respiratory change of the inferior vena cava. CONCLUSIONS 1. Normal left ventricular size, systolic function and wall thickness, with no regional wall motion abnormalities. Left ventricular ejection fraction is estimated at 70 %. Grade I diastolic dysfunction (abnormal relaxation filling pattern), normal to mildly elevated filling pressures. 2. Normal right ventricular size and systolic function. 3. Moderate pulmonary hypertension with pulmonary pressure estimated at 47 mmHg. 4. Mild to moderate tricuspid valve regurgitation. 5. Mild mitral valve regurgitation. 6. When compared to previous study dated 12/04/2017, there is moderate pulmonary hypertension and mitral and tricuspid valve regurgitation has worsened. Laura Collins MD (Electronically Signed) Final Date: 07 January 2022 17:08 S
== END 2022-01-04 11:31 | disposition home or self-care (01) ==
LOC: RAD 11:30
PROVIDERS: PCP Internal Medicine; Visit Provider Internal Medicine Critical Care Medicine
DX: I50.9 Heart failure, unspecified (principal); I27.20 Pulmonary hypertension, unspecified; I08.1 Rheumatic disorders of both mitral and tricuspid valves
CPT/HCPCS: 93306

== ENCOUNTER 2022-01-14 13:28 | Outpatient (CLI) | payer MEDICARE, OTHER, SELFPAY ==
--- NOTE | 2022-01-14 13:30 | XR_ITS ---
WS: [id number] DEXA (DUAL ENERGY X-RAY ABSORPTIOMETRY) Bone mineral density was performed using a ParQnow machine. HISTORY: Checking bone density. COMPARISON: None available. Total hip BMD: Left: 0.576 g/cm2. T score: -3.4 Z score: -2.3 Right: 0.627 g/cm2. T score: -3.0 Z score: -1.9 10 year probability of a major osteoporotic fracture is 31.8%. XR/XR DEXA axial skeleton* [id number] IMPRESSION: OSTEOPOROSIS based upon the WHO classification for females.
== END 2022-01-14 13:29 | disposition home or self-care (01) ==
PROVIDERS: PCP Internal Medicine; Visit Provider Internal Medicine
DX: M48.54XA Collapsed vertebra, not elsewhere classified, thoracic region, initial encounter for fracture (principal); M51.17 Intervertebral disc disorders with radiculopathy, lumbosacral region; G89.29 Other chronic pain
CPT/HCPCS: 77080

== ENCOUNTER 2022-02-11 10:29 | Outpatient (CLI) | payer MEDICARE, OTHER, SELFPAY ==
--- NOTE | 2022-02-11 11:49 | XR_ITS ---
WS: [email or web address] XR chest 2V* [id number] REASON FOR EXAM: SEVERE AIRFLOW OBSTRUCTION FINDINGS: The heart and mediastinum are within normal limits. Calcified granulomatous disease bilaterally. Hyperexpansion of the lungs with prominence of the inter stitium in the lower lung han. Extensive bullous changes in the upper lobes. No acute abnormality of the pulmonary parenchymal or pleural disease is identified. Dorsal kyphosis with wedge-shaped compression deformity of presumed T11 and previous vertebroplasty a t L2 compression deformity. No interval change compared to 09/05/2021. XR/XR chest 2V* [id number] IMPRESSION: Severe chronic lung disease as above.
--- NOTE | 2022-02-11 12:00 | NM_ITS ---
WS: [email or web address] NUCLEAR MEDICINE LUNG PERFUSION ONLY CLINICAL INFORMATION: quantitative TECHNIQUE: Perfusion lung scan with 5.3 mCi MAA COMPARISON: Radiograph February 11, 2022 FINDINGS: Current radiograph demonstrates hyperinflation with advanced chronic emphysematous changes. Interstit ial thickening in the lung bases. Patchy bilateral pulmonary perfusion with decreased perfusion in the RIGHT greater than LEFT upper lo bes. More symmetric homogeneous perfusion in the mid and lower lobes. RI/RI pul perfusion [id number] IMPRESSION: LEFT LUNG (%, Kct) Upper Zone: 7.0%, 34.69 Kct Middle Zone: 27.3%, 135.20 Kct Lower Zone: 20.4%, 101.15 Kct TOTAL LEFT LUN.7%, 271.04 Kct RIGHT LUNG (%, Kct) Upper Zone: 4.1%, 20.12 Kct Middle Zone: 21.2%, 104.85 Kct Lower Zone: 20.1%, 99.32 Kct TOTAL RIGHT LUN.3%, 224.30 Kct
== END 2022-02-11 10:30 | disposition home or self-care (01) ==
LOC: RAD 10:29
PROVIDERS: PCP Internal Medicine; Visit Provider Internal Medicine Pulmonary Disease
DX: I27.20 Pulmonary hypertension, unspecified (principal); I50.9 Heart failure, unspecified; J98.4 Other disorders of lung
CPT/HCPCS: 71046; 78580; A9540

== ENCOUNTER → 2022-03-29 10:03 | Outpatient (BNVA) | payer MEDICARE, OTHER, SELFPAY | PROVIDERS: PCP Internal Medicine; Visit Provider Internal Medicine Cardiovascular Disease | DX: R07.9 Chest pain, unspecified (principal); I20.1 Angina pectoris with documented spasm; J96.11 Chronic respiratory failure with hypoxia; I27.82 Chronic pulmonary embolism; I27.20 Pulmonary hypertension, unspecified; I50.9 Heart failure, unspecified; J43.8 Other emphysema; Z87.891 Personal history of nicotine dependence | CPT/HCPCS: 99214; Q3014 ==

== ENCOUNTER → 2022-04-22 09:47 | Outpatient (BNVA) | payer MEDICARE, OTHER, SELFPAY | PROVIDERS: PCP Internal Medicine; Visit Provider Internal Medicine Pulmonary Disease | DX: J44.9 Chronic obstructive pulmonary disease, unspecified (principal); J96.11 Chronic respiratory failure with hypoxia; I50.9 Heart failure, unspecified; I27.20 Pulmonary hypertension, unspecified; Z87.891 Personal history of nicotine dependence; Z86.711 Personal history of pulmonary embolism; Z79.52 Long term (current) use of systemic steroids; Z99.81 Dependence on supplemental oxygen; Z79.01 Long term (current) use of anticoagulants | CPT/HCPCS: 99214 ==

== ENCOUNTER 2022-05-09 14:34 | Outpatient (CLI) | payer MEDICARE, OTHER, SELFPAY ==
--- NOTE | 2022-05-09 | CT_ITS ---
WS: [id number] CT ABDOMEN AND PELVIS WITH CONTRAST HISTORY: VENTRAL HERNIA TECHNIQUE: Imaging performed of the abdomen and pelvis with IV contrast. Single phase imaging of the abdomen. Coronal and sagittal reformats are submitted. All CT scans at [facility] use at [address] one of these dose optimization techniques: automated exposure control; mA and/or kV adjustment per patient size (includes targeted exams where dose is matched to clinical indication); or iterative re construction. IV CONTRAST: Omnipaque 350; 80 mL IV. Oral contrast: Yes. DLP: 276.11 mGy.cm COMPARISON: 12/03/2017 Lower thorax: Significant pulmonary hyperexpansion. Bilateral mosaic attenuation at the lung bases. N o effusion. Heart is normal size. Small hiatal hernia. Liver/biliary system: Normal size with no intrahepatic dilatation. Gallbladder: Normal. No gallstones or wall thickening. No pericholecystic fluid. Pancreas: Normal size pancreas and pancreatic duct. No adjacent inflammation. Spleen: Normal size spleen. No mass or infarct. Adrenal glands: Normal. Right kidney: Normal. Left kidney: Normal. Aorta: Moderate atherosclerosis with no aneurysm. Poorly opacified enhanced celiac axis and SMA. Lymphadenopathy: None. Free fluid: None. GI tract: Normally distended stomach. No small bowel obstruction. Moderate constipation. Scattered di verticular disease of the distal colon with no acute diverticulitis. Abdominal wall: Unremarkable abdominal wall. No hernia. Abdominal wall is intact. Marked thinning of the musculature. There are several small bowel loops extending towards the RIGHT inguinal canal but t here is no herniation. No obstruction. Pelvis: No free fluid or adenopathy within the pelvis. Atrophic uterus. No pelvic mass. Bones: L2 prior kyphoplasty. T11 50% compression fracture. No change since 02/17/2021 CT/CT abdomen pelvis w con* [id number] IMPRESSION: 1. No ventral abdominal wall hernia. Marked thinning of the abdominal wall mus culature but no hernia. 2. Mild diffuse constipation. 3. No adenopathy or ascites. 4. Severe emphysematous changes at the lung bases. 5. Moderate atherosclerosis aorta.
[2022-05-09] MEDS: iohexol 350 mg/mL 500 mL Btl (per mL) IV (15:34)
[2022-05-09] MEDS: iohexol 350 mg/mL 500 mL Btl (per mL) PO (16:37)
== END 2022-05-09 14:35 | disposition home or self-care (01) ==
LOC: RAD 14:37
PROVIDERS: PCP Internal Medicine; Visit Provider Internal Medicine
DX: K43.9 Ventral hernia without obstruction or gangrene (principal)
CPT/HCPCS: 74177; Q9967

== ENCOUNTER 2022-05-27 14:37 | Outpatient (CLI) | payer MEDICARE, OTHER, SELFPAY | END 2022-05-27 14:38 | disposition home or self-care (01) | LOC: SLEEP 05-30 14:38 | PROVIDERS: PCP Internal Medicine; Visit Provider Internal Medicine Pulmonary Disease | DX: I27.20 Pulmonary hypertension, unspecified (principal); J96.11 Chronic respiratory failure with hypoxia; I50.812 Chronic right heart failure | CPT/HCPCS: 94762 ==

== ENCOUNTER → 2022-09-02 08:54 | Outpatient (BNVA) | payer MEDICARE, OTHER, SELFPAY | PROVIDERS: PCP Internal Medicine; Visit Provider Internal Medicine Pulmonary Disease | DX: J96.11 Chronic respiratory failure with hypoxia (principal); Z87.891 Personal history of nicotine dependence; I50.9 Heart failure, unspecified; I27.20 Pulmonary hypertension, unspecified; J43.9 Emphysema, unspecified; Z99.81 Dependence on supplemental oxygen; Z86.711 Personal history of pulmonary embolism; Z79.01 Long term (current) use of anticoagulants | CPT/HCPCS: 99214 ==

== ENCOUNTER 2022-09-09 09:57 | Outpatient (CLI) | payer MEDICARE, OTHER, SELFPAY ==
--- NOTE | 2022-09-09 10:15 | CT_ITS ---
WS: [id number] LDCT LUNG CANCER SCREENING HISTORY: lung cancer screening TECHNIQUE: Axial imaging performed from the apices to 1 cm below the costophrenic angles. Coronal and sagittal reformats are submitted with axial MIP series. All CT scans at [facility] use at least one of these dose optimization techniques: automated exposure control; mA and/or kV adjustment per patient size (includes targeted exams where dose is matched to clinical indication); or iterativ e reconstruction. DLP: 37.51 mGy.cm DIvol: Mean CTDIvol: 0.50 (mGy) COMPARISON: 02/17/2021 and 06/07/2020 Diagnostic quality: Satisfactory Lungs: Severe bullous emphysema. No pulmonary nodule or mass. There is also mosaic attenuation with f ibrosis and pleural thickening. No dense consolidation. Heart: Normal size heart with no pericardial effusion.. Other findings: Mild atherosclerosis aorta. Mild pulmonary hypertension. Small hiatal hernia. No adre nal mass. T11 and L2 compression fractures. L2 compression fracture with vertebroplasty. CT/CT lung screening [id number] IMPRESSION: LUNG-RADS: 1-Negative FOLLOW UP: 12 Month: Continue annual screening with LDCT OTHER FINDINGS (S MODIFIER): None.
== END 2022-09-09 09:58 | disposition home or self-care (01) ==
LOC: RAD 10:01
PROVIDERS: PCP Internal Medicine; Visit Provider Internal Medicine Pulmonary Disease
DX: Z12.2 Encounter for screening for malignant neoplasm of respiratory organs (principal); Z87.891 Personal history of nicotine dependence; I27.82 Chronic pulmonary embolism
CPT/HCPCS: 71271

== ENCOUNTER → 2022-11-29 10:53 | Outpatient (BNVA) | payer MEDICARE, OTHER, SELFPAY | PROVIDERS: PCP Internal Medicine; Visit Provider Internal Medicine Cardiovascular Disease | DX: R07.9 Chest pain, unspecified (principal); I20.1 Angina pectoris with documented spasm; J96.11 Chronic respiratory failure with hypoxia; I27.82 Chronic pulmonary embolism; I27.20 Pulmonary hypertension, unspecified; I50.9 Heart failure, unspecified; J44.9 Chronic obstructive pulmonary disease, unspecified; Z87.891 Personal history of nicotine dependence; Z79.01 Long term (current) use of anticoagulants | CPT/HCPCS: 99214 ==

== ENCOUNTER 2022-12-27 09:03 | Observation (INO) | payer MEDICARE, OTHER, SELFPAY ==
[2022-12-27] VITALS (14 sets, daily range): BP systolic 101–125; BP diastolic 63–77; PULSE 81–110; RESP 14–20; TEMP 36.4–36.6; O2SAT 90–95; BMI 18.5
--- NOTE | 2022-12-27 09:13 | XR_ITS ---
WS: [id number] Portable AP upright chest, 12/27/2022 Clinical Data: dyspnea/cough Comparison: 2 view chest, 02/11/2022 Findings: There is a patchy opacity overlying the right diaphragm which may represent acute pneumonia and/or atelectasis. The diaphragms are flattened. No nodules, masses or effusions are seen. The hear t is normal. The pulmonary vascularity is not increased. No pneumothorax is seen. The aortic arch is mildly tortuous. Vertebroplasty cement is seen in a lower thoracic vertebral body and an upper lumbar vertebral body. Impression: 1. Patchy opacity overlying right diaphragm which may represent acute pneumonia. 2. Atherosclerosis and hyperinflation.
[2022-12-27 09:29] LABS: ABG PCO2 36.6 mmHg (35-45); ABG PH Result 7.46 (7.35-7.45); Alveolar-Arterial Oxygen Gradi 5.6 mmHg (5-10); Arterial Blood Gas Hematocrit 40.5 % (37-47); Base Excess ABG 2.4 mmol/L (-2.0-2.0); Blood Gas Allen Test Pos; Blood Gas Operator Identificat WALCI; Blood Gas Sample Site Brachial, right; Blood Gas Sample Type Arterial; Carboxyhemoglobin 1.8 %THgb (0.4-20.1); HCO3 ABG 26.1 mmol/L (22-26); HGB O2 Sat 91.4 % (95-100); Ionized Calcium Level - ABG 1.2 mmol/L (1.1-1.4); Methemoglobin 0.5 % (0.4-1.5); Oxygen Device NC; Oxygen Saturation ABG 93.6; PO2 ABG 59.9 mmHg (80.0-100.0); Potassium Level - ABG 3.5 mmol/L (3.5-5.0); Total Hemoglobin 13.2 g/dL (12-16)
--- NOTE | 2022-12-27 09:30 | W.ED.SOB ---
HPI - SOB/Dyspnea General: Chief Complaint: Shortness of Breath/Dyspnea Stated Complaint: SOB, Low O2 Time Seen by Provider: 12/27/22 09:12 Source: patient Mode of arrival: ambulatory History of Present Illness: HPI Narrative: 57-year-old female comes in complaining shortness of breath that began yesterday. Patient has a productive cough and shortness of breath began yesterday. She has not noticed any swelling in her legs no orthopnea no chest pain. Sputum has been discolored from her baseline is greenish in nature and thick. She is normally on 4 L by oxygen maintaining sats in the low 90s with 4 L today. She has had a little bit of blood-tinged sputum she is on apixaban for history of pulmonary embolism. MD elicited complaint: shortness of breath and cough Pertinent past history: COPD Onset (ago): day(s) (1) Severity: mild Exacerbating factors: exertion and coughing Relieving factors: oxygen, rest and bronchodilators Known history of: COPD Associated symptoms: Reports chest congestion, cough and orthopnea; Deny abdominal pain, chest pain, diaphoresis, dizziness, extremity pain, fever(s), hemoptysis, lightheadedness, myalgias, nausea, palpitations, paresthesias, polydipsia, polyuria, rash, sense of impending doom, syncope or vomiting Review of Systems Const: Denies: fever(s) or diaphoresis Card: Reports: orthopnea; Denies: chest pain, palpitations, lightheadedness or syncope Resp: Reports: chest congestion; Denies: hemoptysis GI: Denies: abdominal pain, nausea or vomiting : Denies: dysuria, urinary frequency or urinary urgency Musc: Denies: extremity pain Skin/Breast: Denies: rash Neuro: Denies: dizziness Endo: Denies: polyuria or polydipsia PFS ED PFSH: Medical History (Updated 12/27/22 @ 13:11 by Nigel Crawford MD) Anxiety CHF (congestive heart failure) Chronic right heart failure COPD (chronic obstructive pulmonary disease) Cough with hemoptysis Dyslipidemia H/O Prinzmetal angina Heterozygous alpha 1-antitrypsin deficiency Intervertebral disc disorders with radiculopathy, lumbosacral region Low back pain Nicotine dependence, unspecified, uncomplicated Panlobular emphysema Pulmonary embolus Pulmonary hypertension Reactive depression Surgical History History of esophagogastroduodenoscopy (EGD) 02/19/2016- HITAL HERNIA- ESOPHAGITIS- AND ESOPHAGEAL MONILIASIS Hx of tubal ligation S/P lumbar discectomy Family History Father Myocardial infarct Stroke Lung disease Hypertension Brother Myocardial infarct Sister Anemia Diabetes Lung disease Hypertension Olhms-3-kuuxlixnrps deficiency Mother Diabetes Lung disease Wrgtu-[id number]-etozfwglegl deficiency Social History Smoking and tobacco/nicotine status: former use of tobacco/nicotine Quit status (tobacco/nicotine): has quit using Year quit tobacco: 2021 Former quit date comment: Hx of 1 ppd X 31 years Second hand smoke exposure: Yes Alcohol intake: current Alcohol intake frequency: holidays/special occasions only Substance/Drug Use: never Lives independently: Yes Household members: spouse Housing: House Marital status: Current occupational status: disabled Do you think of yourself as: Straight/Heterosexual Current gender identity: Female Physical Exam Const: GENERAL APPEARANCE: cooperative and comfortable ORIENTATION/CONSCIOUSNESS: Yes awake, Yes oriented to person, Yes oriented to place and Yes oriented to time HENMT: COMMON NORMALS: normocephalic, atraumatic and hearing grossly normal bilaterally HEAD & SCALP: normocephalic and atraumatic Resp: COMMON NORMALS: normal respiratory effort, No retractions and No use of accessory muscles AUSCULTATION: rhonchi and wheezes Cardio: COMMON NORMALS: regular rhythm and No murmurs present (Cardio) RATE: tachycardic RHYTHM: regular rhythm GI: COMMON NORMALS: Soft to palpation and No hepatosplenomegaly present AUSCULTATION: Yes normoactive bowel sounds PALPATION: Yes Soft to palpation, No Tenderness to palpation present (GI), No Guarding due to palpation present (GI) and Yes No hepatosplenomegaly present Extremity: COMMON NORMALS: normal to inspection, capillary refill normal, no clubbing, cyanosis or edema, no calf tenderness and no pedal edema Neuro: SENSORIUM/ORIENTATION: Yes oriented to person, Yes oriented to place and Yes oriented to time Skin: COMMON NORMALS: no rashes or lesions noted GENERAL SKIN EXAM: no rashes or lesions noted Course Vital Signs: Vital signs: Vital Signs Temperature 97.6 F 12/28/22 04:00 Pulse Rate 117 H 12/28/22 05:50 Respiratory Rate 17 12/28/22 04:10 Blood Pressure 134/73 12/28/22 04:00 Pulse Oximetry 92 12/28/22 04:10 Oxygen Delivery Me thod Nasal Cannula 12/28/22 04:10 Oxygen Flow Rate 4 12/28/22 04:10 MDM - SOB/Dyspnea Medical Decision Making Right lower lobe pneumonia exacerbation COPD discussed with hospitalist aggressive pulmonary toilet antibiotics started Differential Diagnosis Likely acute exacerbation of chronic obstructive airways disease, congestive heart failure and community acquired pneumonia Medical Records I reviewed the patient's medical records. Lab Data I reviewed the patient's lab results. 12/28/22 03:35 12/28/22 03:35 Labs/Radiology: Laboratory Results WBC 24.92 10^3/uL (3.29-11.43) H 12/27/22 09:37 RBC 4.41 10^6/uL (3.85-5.65) 12/27/22 09:37 Hgb 13.30 g/dL (11.27-16.99) 12/27/22 09:37 Hct 40.4 % (36-47) 12/27/22 09:37 MCV 91.6 fl (85-98) 12/27/22 09:37 MCH 30.2 pg (27-33) 12/27/22 09:37 MCHC 32.9 g/dL (30-55) 12/27/22 09:37 RDW 13.3 % (12.1-15.1) 12/27/22 09:37 Plt Count 265 10^3/cmm (157-399) 12/27/22 09:37 MPV 11.6 fL (7.4-10.4) H 12/27/22 09:37 Neut % (Auto) 88.1 % 12/27/22 09:37 Lymph % (Auto) 5.5 % 12/27/22 09:37 [place] % (Auto) 5.4 % 12/27/22 09:37 Eos % (Auto) 0.1 % 12/27/22 09:37 Baso % (Auto) 0.2 % 12/27/22 09:37 Neut # (Auto) 21.95 10^3/uL (1.8-7.7) H 12/27/22 09:37 Lymph # (Auto) 1.4 10^3/uL (0.8-4.8) 12/27/22 09:37 [place] # (Auto) 1.3 10^3/uL (0.2-0.9) H 12/27/22 09:37 Eos # (Auto) 0.0 10^3/uL (0.0-0.8) 12/27/22 09:37 Baso # (Auto) 0.1 10^3/uL (0.0-0.1) 12/27/22 09:37 Nucleated RBC % (auto) 0 % 12/27/22 09:37 Nucleated RBCs # 0.0 /100WBC 12/27/22 09:37 Specimen Type Arterial 12/27/22 09:18 Sample Site Brachial, right 12/27/22 09:18 ABG pH 7.46 (7.35-7.45) H 12/27/22 09:18 ABG pCO2 36.6 mmHg (35-45) 12/27/22 09:18 ABG pO2 59.9 mmHg (80.0-100.0) L 12/27/22 09:18 ABG HCO3 26.1 mmol/L (22-26) H 12/27/22 09:18 ABG O2 Saturation 93.6 12/27/22 09:18 ABG Base Excess 2.4 mmol/L (-2.0-2.0) H 12/27/22 09:18 Eliu Test Pos 12/27/22 09:18 A-a O2 Gradient 5.6 mmHg (5-10) 12/27/22 09:18 Hematocrit 40.5 % (37-47) 12/27/22 09:18 Hgb O2 Saturation 91.4 % (95-100) L 12/27/22 09:18 Carboxyhemoglobin 1.8 %THgb (0.4-20.1) 12/27/22 09:18 Methemoglobin 0.5 % (0.4-1.5) 12/27/22 09:18 Total Hemoglobin 13.2 g/dL (12-16) 12/27/22 09:18 Sodium 134.0 mmol/L (131-143) 12/27/22 09:18 Potassium 3.5 mmol/L (3.5-5.0) 12/27/22 09:18 Glucose 148.0 mg/dL (70-115) H 12/27/22 09:18 Ionized Calcium 1.2 mmol/L (1.1-1.4) 12/27/22 09:18 O2 Delivery Device Nc 12/27/22 09:18 O2 Liters/Min 4.0 % 12/27/22 09:18 Reducing Salon Attendant ID [place] 12/27/22 09:18 Sodium 135 mmol/L (136-145) L 12/27/22 09:37 Potassium 4.2 mmol/L (3.5-5.1) 12/27/22 09:37 Chloride 96 mmol/L (98-107) L 12/27/22 09:37 Carbon Dioxide 26 mmol/L (22-29) 12/27/22 09:37 Anion Gap 17.2 (5-19) 12/27/22 09:37 BUN 10 mg/dL (6-20) 12/27/22 09:37 Creatinine 0.7 mg/dL (0.5-0.9) 12/27/22 09:37 GFR Calculation 86.6 mL/min (90-130) L 12/27/22 09:37 Glucose 155 mg/dL (65-115) H 12/27/22 09:37 Calculated Osmolality 282 mOsm/kg (285-295) L 12/27/22 09:37 Calcium 9.4 mg/dL (8.5-10.5) 12/27/22 09:37 Magnesium 2.0 mg/dL (1.7-2.3) 12/27/22 09:32 Total Bilirubin 0.5 mg/dL (0.15-1.2) 12/27/22 09:37 AST 16 U/L (0-32) 12/27/22 09:37 ALT 16 U/L (0-33) 12/27/22 09:37 Alkaline Phosphatase 61 U/L (35-105) 12/27/22 09:37 Total Protein 7.5 g/dL (6.6-8.7) 12/27/22 09:37 Albumin 4.5 g/dL (3.5-5.2) 12/27/22 09:37 Globulin 3.0 g/dL (1.3-4.6) 12/27/22 09:37 TSH 1.06 uIU/mL (0.27-4.20) 12/27/22 09:32 Coronavirus 229E (PCR) Not detected (NOT DETECT) 12/27/22 10:40 SARS-CoV-2 (PCR) Not detected (NOT DETECT) 12/27/22 10:40 All radiology interpretation(s) finalized by discharge Discharge Plan Discharge Patient Disposition: Placed in Observation Admit Provider: Nigel Crawford Clinical Impression: Community acquired pneumonia, Acute exacerbation of chronic obstructive airways disease Coding Level of Care Code ED Gerontological Nurse Practitioner for Elizabeth Solorzano
[2022-12-27 09:48] LABS: Basophils # 0.1 10^3/uL (0.0-0.1); Basophils % 0.2 %; Eosinophils % 0.1 %; Hematocrit 40.4 % (36-47); Lymphocytes # 1.4 10^3/uL (0.8-4.8); Lymphocytes % 5.5 %; Mean Corpuscular HGB Conc 32.9 g/dL (30-55); Mean Corpuscular Hemoglobin 30.2 pg (27-33); Mean Corpuscular Volume 91.6 fl (85-98); Mean Platelet Volume 11.6 fL (7.4-10.4); Monocytes # 1.3 10^3/uL (0.2-0.9); Monocytes % 5.4 %; Neutrophils # 21.95 10^3/uL (1.8-7.7); Neutrophils % 88.1 %; Nucleated Red Blood Cells % 0 %; Platelet Count 265 10^3/cmm (157-399); Red Blood Count 4.41 10^6/uL (3.85-5.65); Red Cell Distribution Width 13.3 % (12.1-15.1); White Blood Count 24.92 10^3/uL (3.29-11.43)
[2022-12-27] MEDS: ipratropium-albuterol 3 mL Neb INHALATION ×3 (09:52→20:38)
[2022-12-27] MEDS: levofloxacin-dextrose 5 % 750 MG/150 ML PREMIX 100 MG IV (09:57)
[2022-12-27] MEDS: dexamethasone 10 mg/mL INJ IM (09:58)
[2022-12-27 10:13] LABS: Alanine Aminotransferase 16 U/L (0-33); Albumin Level 4.5 g/dL (3.5-5.2); Alkaline Phosphatase 61 U/L (35-105); Anion Gap 17.2 (5-19); Aspartate Amino Transferase 16 U/L (0-32); Blood Urea Nitrogen 10 mg/dL (6-20); Calcium 9.4 mg/dL (8.5-10.5); Carbon Dioxide 26 mmol/L (22-29); Chloride 96 mmol/L (98-107); Glomerular Filtration Rate 86.6 mL/min (90-130); Glucose 155 mg/dL (65-115); Osmolality Calculated 282 mOsm/kg (285-295); Potassium 4.2 mmol/L (3.5-5.1); Sodium 135 mmol/L (136-145); Total Bilirubin 0.5 mg/dL (0.15-1.2); Total Protein 7.5 g/dL (6.6-8.7)
--- NOTE | 2022-12-27 11:15 | P.HP_ITS ---
Providers/Chief Complaint Admitting Physician: Nigel Crawford MD Primary Care Provider: Ludin Schmitt MD Chief Complaint: SOB, Low O2 History of Present Illness Elsy Soto is a 57 year old female with known severe COPD, Gold D class, who presents to the hospital with 2 days of increasing shortness of breath. She reports no increase in her chronic cough. She has had no fevers. She relates that she cannot get around the house as well as she has in the past, and with just a little bit of exertion her O2 sat drops into the 70s. She denies any nausea, vomiting, dysphagia. She reports no sick contacts at home. She denies any chest pain. Her baseline oxygen requirement is 4 L, increased several months ago. She has been having some muscle cramps in her legs lately. Review of Systems General: Reports: 10 or more systems reviewed and unremarkable except in HPI and below Card: Denies: chest pain Resp: Reports: dyspnea; Denies: productive cough or non-productive cough GI: Denies: abdominal pain, nausea, vomiting, hematochezia or melena Medications/Allergies Home Medications Medication Instructions Recorded Confirmed Last Taken Type ipratropium 0.5 mg-albuterol 3 mg 3 ml inhalation Q6H PRN shortness 08/17/21 12/27/22 Unknown Rx (2.5 mg base)/3 mL nebulization of breath or wheezing 90 days #810 soln mL furosemide 20 mg tablet 20 mg PO .every other day #90 tabs 01/14/22 12/27/22 12/27/22 Rx atorvastatin 10 mg tablet (Lipitor) 10 mg PO .three times weekly 03/29/22 12/27/22 12/27/22 History lidocaine 5 % topical patch 1 patch topical DAILY PRN Pain 03/29/22 12/27/22 12/27/22 History (Lidoderm) melatonin 5 mg capsule 10 mg PO BEDTIME 03/29/22 12/27/22 12/26/22 History isosorbide mononitrate 60 mg 60 mg PO QAM #90 tabs 04/02/22 12/27/22 12/27/22 Rx tablet,extended release 24 hr nitroglycerin 0.4 mg sublingual See Rx Instructions .Route 06/24/22 12/27/22 Unknown Rx tablet .COMPLEX #25 tabs budesonide 0.5 mg/2 mL suspension 0.5 mg (2 mL) inhalation BID #360 10/15/22 12/27/22 12/27/22 Rx for nebulization (Pulmicort) mL tiotropium bromide 2.5 2 inh inhalation DAILY #4 grams 10/18/22 12/27/22 12/27/22 Rx mcg/actuation mist for inhalation (Spiriva Respimat) diltiazem HCl 30 mg tablet 90 mg PO DIRECTED #270 tabs 10/29/22 12/27/22 12/27/22 Rx apixaban 5 mg tablet 5 mg PO BID #180 tabs 12/12/22 12/27/22 12/27/22 Rx albuterol sulfate 90 mcg/actuation 2 puff inhalation Q6H PRN 12/19/22 12/27/22 Unknown Rx aerosol inhaler (ProAir HFA) shortness of breath or wheezing #54 grams arformoterol 15 mcg/2 mL solution 2 ml inhalation BID 12/27/22 12/27/22 12/27/22 History for nebulization (Brovana) aripiprazole 5 mg tablet (Abilify) 5 mg PO QAM 12/27/22 12/27/22 12/27/22 History clonazepam 0.5 mg tablet 0.5 mg PO DAILY 12/27/22 12/27/22 12/26/22 History fluoxetine 20 mg capsule 60 mg PO QAM 12/27/22 12/27/22 12/27/22 History isosorbide mononitrate 30 mg 30 mg PO QAM 12/27/22 12/27/22 12/27/22 History tablet,extended release 24 hr metoprolol succinate 25 mg 25 mg PO QAM 12/27/22 12/27/22 12/27/22 History tablet,extended release 24 hr montelukast 10 mg tablet 10 mg PO QAM 12/27/22 12/27/22 12/27/22 History (Singulair) ondansetron 8 mg disintegrating 8 mg PO QAM 12/27/22 12/27/22 12/27/22 History tablet oxycodone 20 mg tablet,crush 20 mg PO BID 12/27/22 12/27/22 12/27/22 History resistant,extended release 12 hr (OxyContin) pantoprazole 40 mg tablet,delayed 40 mg PO QAM 12/27/22 12/27/22 12/27/22 History release (Protonix) prednisone 5 mg tablet 5 mg PO QAM 12/27/22 12/27/22 12/27/22 History Allergies Allergy/AdvReac Type Severity Reaction Status Date / Time tramadol AdvReac Severe ADR-Shakine Verified 11/29/22 10:59 ss PFSH Acute PFSH: Medical History (Updated 12/27/22 @ 13:11 by Nigel Crawford MD) Anxiety CHF (congestive heart failure) Chronic right heart failure COPD (chronic obstructive pulmonary disease) Cough with hemoptysis Dyslipidemia H/O Prinzmetal angina Heterozygous alpha 1-antitrypsin deficiency Intervertebral disc disorders with radiculopathy, lumbosacral region Low back pain Nicotine dependence, unspecified, uncomplicated Panlobular emphysema Pulmonary embolus Pulmonary hypertension Reactive depression Surgical History History of esophagogastroduodenoscopy (EGD) 02/19/2016- HITAL HERNIA- ESOPHAGITIS- AND ESOPHAGEAL MONILIASIS Hx of tubal ligation S/P lumbar discectomy Family History Father Myocardial infarct Stroke Lung disease Hypertension Brother Myocardial infarct Sister Anemia Diabetes Lung disease Hypertension Mpafh-3-hihgytddknu deficiency Mother Diabetes Lung disease Azfmf-5-ewtohbgxrtj deficiency Social History Smoking and tobacco/nicotine status: former use of tobacco/nicotine Quit status (tobacco/nicotine): has quit using Year quit tobacco: 2021 Former quit date comment: Hx of 1 ppd X 31 years Second hand smoke exposure: Yes Alcohol intake: current Alcohol intake frequency: holidays/special occasions only Substance/Drug Use: never Lives independently: Yes Household members: spouse Housing: House Marital status: Current occupational status: disabled Do you think of yourself as: Straight/Heterosexual Current gender identity: Female Vitals/I&O/Wt Last Vital Signs Pulse 104 H 12/27/22 10:03 Resp 16 12/27/22 10:03 BP 125/67 12/27/22 10:03 Pulse Ox 92 12/27/22 10:03 O2 Del Method Nasal Cannula 10/13/23 09:50 O2 Flow Rate 4 12/27/22 09:50 Weight last 48 hrs Weight 48.988 kg Physical Exam Narrative: General exam is a white female, sitting up in bed, somewhat anxious appearing on 4 L of oxygen. HEENT: Atraumatic normocephalic. Oropharynx clear Neck is supple no lymphadenopathy thyromegaly Cardiovascular slightly tachycardic, regular, no murmur, heart sounds distant. Barrel chest is noted Lungs diminished breath sounds bilaterally. No wheezes or crackles. Abdomen is soft with positive bowel sounds. No obvious organomegaly exam is deferred Extremities no cyanosis clubbing or edema, cap refill brisk Skin no rash Neuro no obvious focal deficits Data 12/27/22 09:37 12/27/22 09:37 Other Labs: ABG demonstrates pH 7.46, PCO2 of 36, PO2 of 59.9 on 4 L of oxygen LFTs are normal Calcium is 9.4, albumin 4.5 Magnesium is 2.0, which I ordered and TSH is normal COVID PCR is negative Chest x-ray by my review demonstrates a right lower lobe pneumonia, possible right lung middle lobe infiltrate, changes consistent with COPD. Some atherosclerosis is noted in the aortic arch. EKG has has been ordered by me. Micro: Microbiology 12/27/22 09:55 Blood Culture - Preliminary Blood SPECIMEN COLLECTED 12/27/22 09:50 Blood Culture - Preliminary Blood SPECIMEN COLLECTED A&P Assessment and plan (1) Community acquired pneumonia: Patient presents with new right lower lobe infiltrate. This is consistent with community-acquired pneumonia. Initiate Rocephin and azithromycin MRSA PCR Sputum culture Oxygen as needed (2) Acute exacerbation of chronic obstructive airways disease: Patient with acute exacerbation of COPD ABG is reviewed. She is currently on her home oxygen of core requirement She received dexamethasone in the emergency department, continue Solu-Medrol at 60 mg IV every 12 hours and transition to p.o. prednisone likely tomorrow Pulmonary toilet with DuoNeb every 4 hours and budesonide twice daily Oxygen as needed, hopefully will just require her home amount of 4 L (3) Leukocytosis: Patient with significant leukocytosis. It appears she has chronic elevation of leukocytes but not to this degree. This is likely secondary to her daily prednisone. Her increased over baseline leukocytosis is likely secondary to her pneumonia. (4) Pulmonary embolus: Patient with past history of pulmonary embolism. This is not suspected at this time as she is compliant with her Eliquis. We will continue Eliquis currently. This will also suffice for DVT prophylaxis. Qualifiers: Pulmonary embolism type: unspecified Chronicity: chronic Acute cor p ulmonale presence: unspecified Qualified Code(s): I27.82 - Chronic pulmonary embolism Plan Leg cramps. Potassium is normal. Check magnesium. May be secondary to her underlying pulmonary disease. Multiple other medical problems as outlined in her past medical history including coronary artery disease and pulmonary hypertension Full code currently Eliquis will suffice for DVT prophylaxis and SCDs will also be used. Attestations Medical Necessity Statement*: At this point as patient is on her baseline oxygen requirement she may not require greater than 2 midnights, therefore is observation. Diagnoses Community acquired pneumonia J18.9 Acute exacerbation of chronic obstructive airways disease J44.1 Leukocytosis D72.829 Pulmonary embolus I27.82 Pulmonary embolism type: unspecified Chronicity: chronic Acute cor pulmonale presence: unspecified Time Spent (min) 47
[2022-12-27 11:43] LABS: Thyroid Stimulating Hormone 1.06 uIU/mL (0.27-4.20)
[2022-12-27] MEDS: ondansetron 2 mg/ML SDV 2 mL 4 MG IVP ×2 (12:08→18:20)
--- NOTE | 2022-12-27 12:20 | ECG_ITS ---
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 Measurements Intervals Delta Rate: 92 P: 48 TN: 143 QRS: 65 QRSD: 82 T: 61 QT: 388 QTc: 482 Interpretive Statements SINUS RHYTHM Compared to ECG 02/17/2021 22:37:57 No significant changes Electronically Signed On 12-27-2022 20:28:32 CDT by Laura Collins M.D. [email or web address]
[2022-12-27 13:04] LABS: Adenovirus Not Detected (NOT DETECT); Chlamydia Pneumoniae Not Detected (NOT DETECT); Coronavirus 229E,HKU1,NL63,OC4 Not Detected (NOT DETECT); Human Metapneumovirus Not Detected (NOT DETECT); Human Rhinovirus/Enterovirus Not Detected (NOT DETECT); Influenza A Not Detected (NOT DETECT); Influenza A H1 Not Detected (NOT DETECT); Influenza A H1-2009 Not Detected (NOT DETECT); Influenza A H3 Not Detected (NOT DETECT); Influenza B Not Detected (NOT DETECT); Mycoplasma Pneumoniae Not Detected (NOT DETECT); Parainfluenza Virus Type 1 Not Detected (NOT DETECT); Parainfluenza Virus Type 2 Not Detected (NOT DETECT); Parainfluenza Virus Type 3 Not Detected (NOT DETECT); Parainfluenza Virus Type 4 Not Detected (NOT DETECT); Respiratory Syncytial Virus A Not Detected (NOT DETECT); Respiratory Syncytial Virus B Not Detected (NOT DETECT); SARS-COV-2 Not Detected (NOT DETECT)
[2022-12-27] MEDS: azithromycin 500 MG in sodium chloride 0.9% 250 ML 250 MG IV (13:21)
[2022-12-27] MEDS: cefTRIAXone 1,000 MG in sodium chloride 0.9% (plus) 50 ML 100 MG IV (14:37)
[2022-12-27] MEDS: oxyCODONE 20 mg ER (12 HR) Tablet PO (17:29)
[2022-12-27] MEDS: apixaban 5 mg Tablet PO (17:30)
[2022-12-27] MEDS: methylPREDNISolone sod succ 60 MG in water for injection-sterile 0.96 ML 11.52 MG IVP (18:21)
[2022-12-27] MEDS: budesonide 0.5 mg/2 mL Neb INHALATION (20:38)
[2022-12-28] VITALS (19 sets, daily range): BP systolic 98–134; BP diastolic 60–81; PULSE 72–117; RESP 16–18; TEMP 36.1–36.8; O2SAT 90–96
[2022-12-28] MEDS: ipratropium-albuterol 3 mL Neb INHALATION ×7 (00:24→23:44)
[2022-12-28 03:59] LABS: Basophils % 0.1 %; Hematocrit 39.1 % (36-47); Lymphocytes # 0.9 10^3/uL (0.8-4.8); Lymphocytes % 6.3 %; Mean Corpuscular HGB Conc 32.2 g/dL (30-55); Mean Corpuscular Hemoglobin 29.6 pg (27-33); Mean Corpuscular Volume 91.8 fl (85-98); Monocytes # 0.5 10^3/uL (0.2-0.9); Monocytes % 3.2 %; Neutrophils % 89.6 %; Nucleated Red Blood Cells % 0 %; Platelet Count 223 10^3/cmm (157-399); Red Blood Count 4.26 10^6/uL (3.85-5.65); Red Cell Distribution Width 13.2 % (12.1-15.1); White Blood Count 14.29 10^3/uL (3.29-11.43)
[2022-12-28 04:19] LABS: Alanine Aminotransferase 14 U/L (0-33); Albumin Level 3.9 g/dL (3.5-5.2); Alkaline Phosphatase 72 U/L (35-105); Anion Gap 14.2 (5-19); Aspartate Amino Transferase 18 U/L (0-32); Blood Urea Nitrogen 8 mg/dL (6-20); Calcium 9.4 mg/dL (8.5-10.5); Carbon Dioxide 27 mmol/L (22-29); Chloride 102 mmol/L (98-107); Glomerular Filtration Rate 103.4 mL/min (90-130); Glucose 139 mg/dL (65-115); Magnesium 2.2 mg/dL (1.7-2.3); Osmolality Calculated 289 mOsm/kg (285-295); Potassium 4.2 mmol/L (3.5-5.1); Sodium 139 mmol/L (136-145); Total Bilirubin 0.2 mg/dL (0.15-1.2); Total Protein 6.9 g/dL (6.6-8.7)
[2022-12-28] MEDS: montelukast sodium 10 mg Tablet PO (05:16)
[2022-12-28] MEDS: isosorbide mononitrate ER 30 mg Tablet PO (05:16)
[2022-12-28] MEDS: oxyCODONE 20 mg ER (12 HR) Tablet PO ×2 (05:16→17:59)
[2022-12-28] MEDS: ARIPiprazole 10 mg Tablet 5 MG PO (05:16)
[2022-12-28] MEDS: fluoxetine 20 mg Capsule 60 MG PO (05:16)
[2022-12-28] MEDS: metoprolol succinate ER (24 HR) 25 mg Tablet PO (05:16)
[2022-12-28] MEDS: isosorbide mononitrate ER 60 mg Tablet PO (05:16)
[2022-12-28] MEDS: ondansetron 4 MG Tablet 8 MG PO (05:16)
[2022-12-28] MEDS: pantoprazole DR 40 mg Tablet PO (05:17)
[2022-12-28] MEDS: methylPREDNISolone sod succ 60 MG in water for injection-sterile 0.96 ML 11.52 MG IVP ×2 (05:17→18:21)
--- NOTE | 2022-12-28 08:25 | P.PN_ITS ---
Subjective Subjective: Patient reports significant respiratory distress with shortness of breath and tachycardia with minimal exertion. Reports respiratory status still far from her baseline. Not safe for discharge yet. Endorses continued productive cough. Endorses chills. Denies fevers. Reports pleurisy. Denies nausea or emesis. Medications: Reviewed: Yes Vitals/I&O/Wt Last Vital Signs Temp 97.6 F 12/28/22 04:00 Pulse 117 H 12/28/22 05:50 Resp 17 12/28/22 04:10 BP 134/73 12/28/22 04:00 Pulse Ox 92 12/28/22 04:10 O2 Del Method Nasal Cannula 12/28/22 04:10 O2 Flow Rate 4 12/28/22 04:10 12/27/22 12/28/22 12/28/22 22:59 06:59 14:59 Intake Total 530.96 / 930.96 0.96 / 931.92 Output Total 125 / 125 100 / 225 Balance 405.96 / 805.96 -99.04 / 706.92 Weight last 48 hrs Weight 48.988 kg Physical Exam Narrative: General: Patient is awake and alert. Head: EOM intact. Neck: No JVD. Cardiovascular: RRR. No gallops. No murmurs. No peripheral edema. Lungs: Tachypnea and increased accessory muscle use when speaking. Very poor air movement. Possibly faint expiratory wheeze but air movement is limited. Right basilar rhonchi. No crackles. Skin: No jaundice. No rashes. Abdomen: Normal bowel sounds, abdomen soft and nontender. Extremities: No cyanosis or clubbing. Musculoskeletal: No erythematous joints. Neurological: Moves all 4 extremities. No myoclonus. Data 12/28/22 03:35 12/28/22 03:35 Micro: Microbiology 12/27/22 10:20 Gram Stain - Final Sputum - Expectorated Sputum 12/27/22 09:55 Blood Culture - Preliminary Blood SPECIMEN COLLECTED 12/27/22 09:50 Blood Culture - Preliminary Blood SPECIMEN COLLECTED A&P Assessment and plan (1) Community acquired pneumonia: Right-sided CAP Continue ceftraixone Continue azithromycin Blood and sputum Cx pending MRSA swab collection pending Pulmonary toilet (2) Acute exacerbation of chronic obstructive airways disease: Continue IV steroids, not yet ready to transition to oral steroids, hopefully S unday Continue abx as above Nebulizing treatments (3) Chronic respiratory failure with hypoxia: Acute respiratory distress noted w/ exertion, not safe for discharge Treat underlying COPD, CAP, pHTN, and CHF Supplemental oxygen support (4) Heart failure: Currently compensated Continuous telemetry monitoring Strict I&Os Continue home Lasix (5) Chronic pain: Continue home opiates (6) Leukocytosis: Secondary to pneumonia, improving w/ abx treatment (7) Nicotine addiction: Would benefit from cessation from nicotine Qualifiers: Nicotine product type: cigarettes (8) Pulmonary hypertension: Management as above (9) Pulmonary embolus: Continue apixaban Qualifiers: Pulmonary embolism type: unspecified Chronicity: chronic Acute cor pulmonale presence: unspecified Qualified Code(s): I27.82 - Chronic pulmonary embolism Plan DVT ppx: Apixaban Code: Full Attestations Medical Necessity Statement*: Patient requires ongoing hospitalization as she remains in respiratory distress with minimal exertion and not safe for discharge, will continue with IV abx, IV sterioids, breathings treatments, and supportive care until she starts to improve. Coding Level of Care Code Acute Code for [facility] Diagnoses Community acquired pneumonia J18.9 Acute exacerbation of chronic obstructive airways disease J44.1 Chronic respiratory failure with hypoxia J96.11 Heart failure I50.9 Chronic pain G89.29 Leukocytosis D72.829 Nicotine addiction F17.200 Nicotine product type: cigarettes Pulmonary hypertension I27.20 Pulmonary embolus I27.82 Pulmonary embolism type: unspecified Chronicity: chronic Acute cor pulmonale presence: unspecified
[2022-12-28] MEDS: FUROsemide 20 mg Tablet PO (09:33)
[2022-12-28] MEDS: apixaban 5 mg Tablet PO ×2 (09:33→17:59)
[2022-12-28] MEDS: CLONazepam 0.5 mg Tablet PO (09:33)
[2022-12-28] MEDS: budesonide 0.5 mg/2 mL Neb INHALATION ×2 (12:02→20:02)
[2022-12-28] MEDS: azithromycin 500 MG in sodium chloride 0.9% 250 ML 250 MG IV (12:20)
[2022-12-28] MEDS: acetaminophen 325 mg Tablet 650 MG PO (12:25)
[2022-12-28] MEDS: ondansetron 2 mg/ML SDV 2 mL 4 MG IVP (13:15)
[2022-12-28] MEDS: cefTRIAXone 1,000 MG in sodium chloride 0.9% (plus) 50 ML 100 MG IV (13:38)
[2022-12-29] VITALS (15 sets, daily range): BP systolic 108–132; BP diastolic 70–79; PULSE 67–111; RESP 16–18; TEMP 36.3–36.6; O2SAT 86–99
[2022-12-29] MEDS: ipratropium-albuterol 3 mL Neb INHALATION ×4 (04:17→15:45)
[2022-12-29 05:15] LABS: Basophils % 0.1 %; Hematocrit 38.8 % (36-47); Lymphocytes # 1.1 10^3/uL (0.8-4.8); Lymphocytes % 5.3 %; Mean Corpuscular HGB Conc 32.7 g/dL (30-55); Mean Corpuscular Hemoglobin 29.9 pg (27-33); Mean Corpuscular Volume 91.3 fl (85-98); Mean Platelet Volume 12.1 fL (7.4-10.4); Monocytes # 0.7 10^3/uL (0.2-0.9); Monocytes % 3.3 %; Neutrophils # 18.06 10^3/uL (1.8-7.7); Neutrophils % 90.3 %; Nucleated Red Blood Cells % 0 %; Platelet Count 273 10^3/cmm (157-399); Red Blood Count 4.25 10^6/uL (3.85-5.65); Red Cell Distribution Width 13.5 % (12.1-15.1); White Blood Count 20.02 10^3/uL (3.29-11.43)
[2022-12-29] MEDS: metoprolol succinate ER (24 HR) 25 mg Tablet PO (05:28)
[2022-12-29] MEDS: montelukast sodium 10 mg Tablet PO (05:28)
[2022-12-29] MEDS: pantoprazole DR 40 mg Tablet PO (05:28)
[2022-12-29] MEDS: isosorbide mononitrate ER 60 mg Tablet PO (05:29)
[2022-12-29] MEDS: isosorbide mononitrate ER 30 mg Tablet PO (05:29)
[2022-12-29] MEDS: fluoxetine 20 mg Capsule 60 MG PO (05:29)
[2022-12-29] MEDS: ondansetron 4 MG Tablet 8 MG PO (05:29)
[2022-12-29] MEDS: ARIPiprazole 10 mg Tablet 5 MG PO (05:29)
[2022-12-29 05:43] LABS: Albumin Level 3.8 g/dL (3.5-5.2); Anion Gap 10.3 (5-19); Blood Urea Nitrogen 11 mg/dL (6-20); Calcium 9.5 mg/dL (8.5-10.5); Carbon Dioxide 29 mmol/L (22-29); Chloride 99 mmol/L (98-107); Glomerular Filtration Rate 86.6 mL/min (90-130); Glucose 129 mg/dL (65-115); Magnesium 2.2 mg/dL (1.7-2.3); Phosphorus 2.4 mg/dL (2.5-4.5); Potassium 3.3 mmol/L (3.5-5.1); Sodium 135 mmol/L (136-145)
[2022-12-29] MEDS: methylPREDNISolone sod succ 60 MG in water for injection-sterile 0.96 ML 11.52 MG IVP (05:46)
[2022-12-29] MEDS: budesonide 0.5 mg/2 mL Neb INHALATION (07:43)
[2022-12-29] MEDS: apixaban 5 mg Tablet PO ×2 (09:03→18:29)
[2022-12-29] MEDS: oxyCODONE 20 mg ER (12 HR) Tablet PO ×2 (09:03→18:29)
[2022-12-29] MEDS: acetaminophen 325 mg Tablet 650 MG PO ×2 (09:03→15:43)
[2022-12-29] MEDS: CLONazepam 0.5 mg Tablet PO (09:03)
[2022-12-29] MEDS: predniSONE 20 mg Tablet 60 MG PO (11:09)
[2022-12-29] MEDS: azithromycin 500 MG in sodium chloride 0.9% 250 ML 250 MG IV (12:55)
[2022-12-29] MEDS: potassium chloride ER 20 mEq Tablet 40 MEQ PO (12:56)
--- NOTE | 2022-12-29 17:42 | P.DS_ITS ---
Discharge Providers Date of Admission: 12/27/22 11:40 Date of Discharge: December 29, 2022 Attending Provider at Admission: Nigel Crawford MD Attending Provider at Discharge: Fletcher Markham MD Primary Care Provider: Ludin Schmitt MD Diagnoses at Discharge Discharge Diagnosis (1) Community acquired pneumonia: Status: Acute (2) Acute exacerbation of chronic obstructive airways disease: Status: Acute (3) Chronic respiratory failure with hypoxia: Status: Acute (4) Heart failure: Status: Acute (5) Chronic pain: Status: Acute (6) Leukocytosis: Status: Acute (7) Nicotine addiction: Status: Acute Qualifiers: Nicotine product type: cigarettes (8) Pulmonary hypertension: Status: Acute (9) Pulmonary embolus: Status: Acute Qualifiers: Pulmonary embolism type: unspecified Chronicity: chronic Acute cor pulmonale presence: unspecified Qualified Code(s): I27.82 - Chronic pulmonary embolism Reason for Visit Reason for Visit: SOB, Low O2 Hospital Course Hospital Course Elsy Soto is a 57-year-old female with a past medical history significant for COPD, CHF, anxiety, PE, and pHTN who presented with shortness of breath, found to have right-sided community acquired pneumonia with acute exacerbation of COPD with chronic hypoxic respiratory failure. Patient treated with IV steroids, IV antibiotics, and supportive care. Symptoms showed some improvement. She was rotated to oral antibiotics and steroids. Patient discharged to home. She will follow up with PCP for further care. Physical Exam Narrative: General: Patient is awake and alert. Appears tired, but very pleasant. Head:? EOM intact. Neck: No JVD. Cardiovascular: RRR. No gallops. No murmurs. No peripheral edema. Lungs: Better air movement than prior exam. Faint end exp wheezing. Right basilar rhonchi.? No crackles. Skin: No jaundice. No rashes. Abdomen: Normal bowel sounds, abdomen soft and nontender. Extremities: No cyanosis or clubbing. Musculoskeletal: No erythematous joints. Neurological: Moves all 4 extremities. No myoclonus. Discharge Data Studies Completed and Pending Completed Studies During Hospitalization Category Date Time Status XR chest 1V portable [id number] Stat Exams 12/27/22 09:13 Completed Pending at discharge Category Date Time Status Blood Culture Stat Lab 12/27/22 09:55 Results MRSA [Methicillin Resistant S.aureu] Routine Lab 12/27/22 12:20 Received Laboratory Results WBC 20.02 10^3/uL (3.29-11.43) H 12/29/22 04:25 RBC 4.25 10^6/uL (3.85-5.65) 12/29/22 04:25 Hgb 12.70 g/dL (11.27-16.99) 12/29/22 04:25 Hct 38.8 % (36-47) 12/29/22 04:25 MCV 91.3 fl (85-98) 12/29/22 04:25 MCH 29.9 pg (27-33) 12/29/22 04:25 MCHC 32.7 g/dL (30-55) 12/29/22 04:25 RDW 13.5 % (12.1-15.1) 12/29/22 04:25 Plt Count 273 10^3/cmm (157-399) 12/29/22 04:25 MPV 12.1 fL (7.4-10.4) H 12/29/22 04:25 Neut % (Auto) 90.3 % 12/29/22 04:25 Lymph % (Auto) 5.3 % 12/29/22 04:25 [place] % (Auto) 3.3 % 12/29/22 04:25 Eos % (Auto) 0.0 % 12/29/22 04:25 Baso % (Auto) 0.1 % 12/29/22 04:25 Neut # (Auto) 18.06 10^3/uL (1.8-7.7) H 12/29/22 04:25 Lymph # (Auto) 1.1 10^3/uL (0.8-4.8) 12/29/22 04:25 [place] # (Auto) 0.7 10^3/uL (0.2-0.9) 12/29/22 04:25 Eos # (Auto) 0.0 10^3/uL (0.0-0.8) 12/29/22 04:25 Baso # (Auto) 0.0 10^3/uL (0.0-0.1) 12/29/22 04:25 Nucleated RBC % (auto) 0 % 12/29/22 04:25 Nucleated RBCs # 0.0 /100WBC 12/29/22 04:25 Specimen Type Arterial 12/27/22 09:18 Sample Site Brachial, right 12/27/22 09:18 ABG pH 7.46 (7.35-7.45) H 12/27/22 09:18 ABG pCO2 36.6 mmHg (35-45) 12/27/22 09:18 ABG pO2 59.9 mmHg (80.0-100.0) L 12/27/22 09:18 ABG HCO3 26.1 mmol/L (22-26) H 12/27/22 09:18 ABG O2 Saturation 93.6 12/27/22 09:18 ABG Base Excess 2.4 mmol/L (-2.0-2.0) H 12/27/22 09:18 Eliu Test Pos 12/27/22 09:18 A-a O2 Gradient 5.6 mmHg (5-10) 12/27/22 09:18 Hematocrit 40.5 % (37-47) 12/27/22 09:18 Hgb O2 Saturation 91.4 % (95-100) L 12/27/22 09:18 Carboxyhemoglobin 1.8 %THgb (0.4-20.1) 12/27/22 09:18 Methemoglobin 0.5 % (0.4-1.5) 12/27/22 09:18 Total Hemoglobin 13.2 g/dL (12-16) 12/27/22 09:18 Sodium 134.0 mmol/L (131-143) 12/27/22 09:18 Potassium 3.5 mmol/L (3.5-5.0) 12/27/22 09:18 Glucose 148.0 mg/dL (70-115) H 12/27/22 09:18 Ionized Calcium 1.2 mmol/L (1.1-1.4) 12/27/22 09:18 O2 Delivery Device Nc 12/27/22 09:18 O2 Liters/Min 4.0 % 12/27/22 09:18 [employer] ID [place] 12/27/22 09:18 Sodium 135 mmol/L (136-145) L 12/29/22 04:25 Potassium 3.3 mmol/L (3.5-5.1) L 12/29/22 04:25 Chloride 99 mmol/L (98-107) 12/29/22 04:25 Carbon Dioxide 29 mmol/L (22-29) 12/29/22 04:25 Anion Gap 10.3 (5-19) 12/29/22 04:25 BUN 11 mg/dL (6-20) 12/29/22 04:25 Creatinine 0.7 mg/dL (0.5-0.9) 12/29/22 04:25 GFR Calculation 86.6 mL/min (90-130) L 12/29/22 04:25 Glucose 129 mg/dL (65-115) H 12/29/22 04:25 Calculated Osmolality 289 mOsm/kg (285-295) 12/28/22 03:35 Calcium 9.5 mg/dL (8.5-10.5) 12/29/22 04:25 Phosphorus 2.4 mg/dL (2.5-4.5) L 12/29/22 04:25 Magnesium 2.2 mg/dL (1.7-2.3) 12/29/22 04:25 Total Bilirubin 0.2 mg/dL (0.15-1.2) 12/28/22 03:35 AST 18 U/L (0-32) 12/28/22 03:35 ALT 14 U/L (0-33) 12/28/22 03:35 Alkaline Phosphatase 72 U/L (35-105) 12/28/22 03:35 Total Protein 6.9 g/dL (6.6-8.7) 12/28/22 03:35 Albumin 3.8 g/dL (3.5-5.2) 12/29/22 04:25 Globulin 3.0 g/dL (1.3-4.6) 12/28/22 03:35 TSH 1.06 uIU/mL (0.27-4.20) 12/27/22 09:32 Coronavirus 229E (PCR) Not detected (NOT DETECT) 12/27/22 10:40 SARS-CoV-2 (PCR) Not detected (NOT DETECT) 12/27/22 10:40 Vitals Last Vital Signs Temp 97.6 F 12/29/22 16:39 Pulse 99 12/29/22 16:39 Resp 18 12/29/22 16:39 BP 123/72 12/29/22 16:39 Pulse Ox 99 12/29/22 16:39 O2 Del Method Nasal Cannula 12/29/22 16:39 O2 Flow Rate 4 12/29/22 15:48 Discharge Plan Discharge Patient Disposition: Home Condition: Stable Prescriptions: New cefdinir 300 mg capsule 300 mg PO BID 7 Days Qty: 14 0RF prednisone 20 mg tablet See Taper PO DAILY 9 Days Qty: 18 0RF Taper: predniSONE 60-10 60 mg Daily for 2 Days and 0 Hour 40 mg Daily for 3 Days and 0 Hour 20 mg Daily for 3 Days and 0 Hour azithromycin [Zithromax TRI-LIANA] 500 mg tablet See Rx Instructions .ROUTE .COMPLEX Qty: 6 0RF Rx Instructions: For 250 mg dose pack: take 500 mg today (day 1), then 250 mg for 4 days (days 2-5) Continued melatonin 5 mg capsule 10 mg PO BEDTIME lidocaine [Lidoderm] 5 % adhesive patch,medicated 1 patch TOPICAL DAILY PRN (Reason: Pain) Rx Instructions: put patch on in the am and remove in the evening ipratropium-albuterol 0.5 mg-3 mg(2.5 mg base)/3 mL solution for nebulization 3 ml inhalation Q6H PRN (Reason: shortness of breath or wheezing) 90 Days Qty: 810 4RF furosemide 20 mg tablet 20 mg PO .every other day Qty: 90 3RF isosorbide mononitrate 60 mg tablet extended release 24 hr 60 mg PO QAM Qty: 90 3RF Rx Instructions: take with 30mg isosorbide mon. to equal 90mg nitroglycerin 0.4 mg tablet, sublingual See Rx Instructions .ROUTE .COMPLEX Qty: 25 1RF Dose Instruction: DISSOLVE 1 TABLET UNDER THE TONGUE EVERY 5 MINUTES NEEDED FOR CHEST PAIN Rx Instructions: DISSOLVE 1 TABLET UNDER THE TONGUE EVERY 5 MINUTES NEEDED FOR CHEST PAIN budesonide [Pulmicort] 0.5 mg/2 mL suspension for nebulization 0.5 mg inhalation BID Qty: 360 3RF Spiriva Respimat 2.5 mcg/actuation mist 2 inh inhalation DAILY Qty: 4 6RF diltiazem HCl 30 mg tablet 90 mg PO DIRECTED Qty: 270 2RF Rx Instructions: Take 60mg (2 tabs) in AM and 30mg (1 tab) in PM apixaban 5 mg tablet 5 mg PO BID Qty: 180 3RF albuterol sulfate [ProAir HFA] 90 mcg/actuation HFA aerosol inhaler 2 puff INHALATION Q6H PRN (Reason: shortness of breath or wheezing) Qty: 54 3RF Lipitor 10 mg tablet 10 mg PO .three times weekly clonazepam 0.5 mg tablet 0.5 mg PO DAILY ondansetron 8 mg tablet,disintegrating 8 mg PO QAM OxyContin 20 mg tablet,oral only,ext.rel.12 hr 20 mg PO BID isosorbide mononitrate 30 mg tablet extended release 24 hr 30 mg PO QAM prednisone 5 mg tablet 5 mg PO QAM Protonix 40 mg tablet,delayed release (DR/EC) 40 mg PO QAM Singulair 10 mg tablet 10 mg PO QAM metoprolol succinate 25 mg tablet extended release 24 hr 25 mg PO QAM fluoxetine 20 mg capsule 60 mg PO QAM Abilify 5 mg tablet 5 mg PO QAM Brovana 15 mcg/2 mL solution for nebulization 2 ml inhalation BID Discharge Orders: Discharge Order (Routine); Ordered 12/29/22 Ordered By: Fletcher Markham Referrals: Ludin Schmitt MD [Primary Care Provider] - 4-7 days Discharge Diet: Advance as tolerated and Usual diet Discharge Activity: Resume usual activity and Increase activity as tolerated Patient Instructions: Opioid Safety Activity Restrictions/Additional Instructions: 1. Increase activity as tolerated. 2. Take medications as prescribed. 3. Follow up with PCP. Discharge Attestations Time Spent in Discharge Care*: greater than 30 min Quality Metrics Clinical Quality Measures [ No reported AMI, CVA or VTE this stay] Coding Level of Care Code Acute Code for [facility] Diagnoses Community acquired pneumonia J18.9 Acute exacerbation of chronic obstructive airways disease J44.1 Chronic respiratory failure with hypoxia J96.11 Heart failure I50.9 Chronic pain G89.29 Leukocytosis D72.829 Nicotine addiction F17.200 Nicotine product type: cigarettes Pulmonary hypertension I27.20 Pulmonary embolus I27.82 Pulmonary embolism type: unspecified Chronicity: chronic Acute cor pulmonale presence: unspecified
[2022-12-30 14:05] LABS: Methicillin-Resist S.aureu PCR NOT DETECTED (NOT DETECTED)
== END 2022-12-29 19:03 | disposition home or self-care (01) ==
LOC: ER 10:39 → MEDSURG 11:41
PROVIDERS: Admitting Provider Internal Medicine; Emergency Provider Family Medicine; PCP Internal Medicine; Visit Provider Internal Medicine
DX: J18.9 Pneumonia, unspecified organism (principal); J44.1 Chronic obstructive pulmonary disease with (acute) exacerbation; J96.11 Chronic respiratory failure with hypoxia; I50.9 Heart failure, unspecified; G89.29 Other chronic pain; D72.829 Elevated white blood cell count, unspecified; F17.210 Nicotine dependence, cigarettes, uncomplicated; I27.20 Pulmonary hypertension, unspecified; I27.82 Chronic pulmonary embolism; E78.5 Hyperlipidemia, unspecified
CPT/HCPCS: 36415; 36600; 71045; 80051; 80053; 80069; 82330; 82805; 83735; 84443; 85025; 87040; 87070; 87205; 87635; 87641; 93005; 94640; 94760; 96365; 96367; 96372; 96375; 96376; 99285; G0378; J0456; J0696; J1100; J1956; J2405; J2930; J7050; J7512; J7626; Q0162

== ENCOUNTER 2023-01-16 10:11 | Outpatient (CLI) | payer MEDICARE, OTHER, SELFPAY ==
--- NOTE | 2023-01-16 10:32 | XRR_ITS ---
PROCEDURE INFORMATION: Exam: XR Thoracic Spine Exam date and time: 01/16/2023 10:36 AM Age: 57 years old Clinical indication: Pain in thoracic spine; Prior surgery; Surgery date: 6+ months; Surgery type: Kyphoplasty, laminectomy; Additional info: Left sided low back pain TECHNIQUE: Imaging protocol: Radiologic exam of the thoracic spine. Views: 3 views. COMPARISON: MR thoracic spin wo con* [id number] 01/08/2021 1:04 PM FINDINGS: Bones/joints: Exaggerated thoracic kyphosis with osteopenia. Severe compression fracture deformity at T10 and T11 levels. Post vertebroplasty at L1. Soft tissues: Unremarkable. XR/XR thoracic spine 2V [id number] IMPRESSION: Osteopenia. Severe compression fracture deformity of the T10 and T11 vertebral bodies with at least 50-60% loss of height. Post vertebroplasty procedure at L1.
== END 2023-01-16 10:12 | disposition home or self-care (01) ==
PROVIDERS: PCP Internal Medicine; Visit Provider Internal Medicine
DX: M85.80 Other specified disorders of bone density and structure, unspecified site (principal); M48.54XA Collapsed vertebra, not elsewhere classified, thoracic region, initial encounter for fracture; M54.50 Low back pain, unspecified
CPT/HCPCS: 72070

== ENCOUNTER → 2023-03-03 09:12 | Outpatient (BNVA) | payer MEDICARE, OTHER, SELFPAY | PROVIDERS: PCP Internal Medicine; Visit Provider Internal Medicine Pulmonary Disease | DX: J44.9 Chronic obstructive pulmonary disease, unspecified (principal); J43.2 Centrilobular emphysema; J96.11 Chronic respiratory failure with hypoxia; I27.82 Chronic pulmonary embolism; F17.210 Nicotine dependence, cigarettes, uncomplicated; I50.32 Chronic diastolic (congestive) heart failure; I27.20 Pulmonary hypertension, unspecified | CPT/HCPCS: 99214 ==

== ENCOUNTER 2023-08-14 12:50 | Outpatient (CLI) | payer MEDICARE, OTHER, SELFPAY ==
--- NOTE | 2023-08-14 12:59 | XR_ITS ---
WS: [id number] Exam: XR hand LT min 3V* [id number] Date/Time of Exam: 08/14/2023 1:15 PM Reason For Exam: INJURY OF L HAND There is mild cortical deformity of the head of the fourth metacarpal. The remaining bony structures of the LEFT hand are intact. The joints appear normal. No soft tissue foreign bodies are noted. XR/XR hand LT min 3V* [id number] IMPRESSION: 1. Cortical deformity of the head of the fourth metacarpal. This may be seconda ry to previous trauma. Recent fracture is considered unlikely. The remaining as pects of the LEFT hand appear normal.
== END 2023-08-14 12:51 | disposition home or self-care (01) ==
LOC: RAD 12:53
PROVIDERS: PCP Internal Medicine; Visit Provider Internal Medicine
DX: S69.92XA Unspecified injury of left wrist, hand and finger(s), initial encounter (principal); X58.XXXA Exposure to other specified factors, initial encounter
CPT/HCPCS: 73130

== ENCOUNTER 2023-09-30 10:53 | Outpatient (CLI) | payer MEDICARE, OTHER, SELFPAY ==
--- NOTE | 2023-09-30 11:00 | XRR_ITS ---
PROCEDURE INFORMATION: Exam: XR Thoracic Spine Exam date and time: 09/30/2023 11:23 AM Age: 58 years old Clinical indication: Pain in thoracic spine; Additional info: Compression FX of thoracic vertebra TECHNIQUE: Imaging protocol: Radiologic exam of the thoracic spine. Views: 3 views. COMPARISON: CR XR thoracic spine 2V [id number] 01/16/2023 10:36 AM FINDINGS: Bones/joints: There is a treated compression deformity at L2 with methylmethacrylate cement. Compression deformity at T10 is of indeterminate age and was not present on prior exam from January 2023. Compression deformities involving T11 and T12 were present on prior exam and are unchanged. There is a kyphotic curvature to the thoracic spine. No subluxations are identified. Disc spaces are relatively well preserved. There is a scoliotic curvature convex left. Soft tissues: Unremarkable. XR/XR thoracic spine 2V [id number] IMPRESSION: 1. T10 indeterminate age not present on prior exam. Old compression deformities at T11 and T12. Treated compression deformity L2. 2. Slight scoliotic curvature convex left.
--- NOTE | 2023-09-30 11:00 | XRR_ITS ---
PROCEDURE INFORMATION: Exam: XR Lumbosacral Spine Exam date and time: 09/30/2023 11:23 AM Age: 58 years old Clinical indication: Low back pain; Additional info: Compression FX of thoracic vertebra TECHNIQUE: Imaging protocol: Radiologic exam of the lumbosacral spine. Views: 4 or 5 views. COMPARISON: MR lumbar spine wo con* [id number] 01/08/2021 1:04 PM FINDINGS: Bones/joints: There is a scoliotic curvature convex left. There is a treated compression deformity with methylmethacrylate cement at L2. There is a compression deformity involving the superior endplate of T10 that was not present on prior exam and is of indeterminate age. There is a compression deformity involving the superior endplate of T11 which appears to be old. Compression deformity involving T12 is of indeterminate age. Compression deformity involving the superior endplate of L3 appears to be old. There is grade 1 anterolisthesis of L5 in relation to S1 secondary to degenerative facets. There are degenerative changes involving the lower lumbar facets. SI joints are normal. Soft tissues: Unremarkable. XR/XR lumbar spine min 4V [id number] IMPRESSION: 1. Scoliotic curvature convex left. 2. Treated compression deformity at L2. 3. Old appearing compression deformities at T12 and L3 which are likely old. 4. Indeterminate age compression deformities at T10 and T12.
== END 2023-09-30 10:54 | disposition home or self-care (01) ==
LOC: RAD 10:58
PROVIDERS: PCP Internal Medicine; Visit Provider Internal Medicine
DX: S22.080A Wedge compression fracture of T11-T12 vertebra, initial encounter for closed fracture (principal); S22.070A Wedge compression fracture of T9-T10 vertebra, initial encounter for closed fracture; M41.86 Other forms of scoliosis, lumbar region; S32.020A Wedge compression fracture of second lumbar vertebra, initial encounter for closed fracture
CPT/HCPCS: 72070; 72110

== ENCOUNTER → 2023-10-01 15:38 | Outpatient (BNVA) | payer MEDICARE, OTHER, SELFPAY | PROVIDERS: PCP Internal Medicine; Visit Provider Internal Medicine Critical Care Medicine | DX: J96.11 Chronic respiratory failure with hypoxia (principal); I48.91 Unspecified atrial fibrillation; Z99.81 Dependence on supplemental oxygen; J44.9 Chronic obstructive pulmonary disease, unspecified; I47.11 Inappropriate sinus tachycardia, so stated; I50.33 Acute on chronic diastolic (congestive) heart failure; I27.20 Pulmonary hypertension, unspecified; M54.6 Pain in thoracic spine; E44.0 Moderate protein-calorie malnutrition; Z66 Do not resuscitate | CPT/HCPCS: 93005; 99215 ==

== ENCOUNTER → 2023-10-20 10:31 | Outpatient (BNVA) | payer MEDICARE, OTHER, SELFPAY | PROVIDERS: PCP Internal Medicine; Visit Provider Nurse Practitioner Family | DX: I48.91 Unspecified atrial fibrillation (principal); I50.33 Acute on chronic diastolic (congestive) heart failure; Z79.01 Long term (current) use of anticoagulants | CPT/HCPCS: 99214 ==

== ENCOUNTER 2024-01-03 12:39 | Emergency (ER) | payer MEDICARE, OTHER, SELFPAY ==
[2024-01-03 12:49] VITALS: BP 146/88; PULSE 109; RESP 19; TEMP 36.7; O2SAT 95; BMI 14.4
--- NOTE | 2024-01-03 13:05 | XRR_ITS ---
PROCEDURE INFORMATION: Exam: XR Chest Exam date and time: 01/03/2024 1:37 PM Age: 58 years old Clinical indication: Intercostal; Patient HX: Posterior left chest pain; No known injury TECHNIQUE: Imaging protocol: Radiologic exam of the chest. Views: 1 view. COMPARISON: CR XR chest 1V portable [id number] 12/27/2022 9:38 AM FINDINGS: Lungs: Lungs appear hyperlucent and hyper aerated consistent with known chronic diffuse emphysema. Minimal atelectasis in the lung bases. No pulmonary consolidation is seen. Pleural spaces: No pneumothorax or pleural effusion suggested. Heart/Mediastinum: Normal size of the cardiac silhouette. Bones/joints: Prior changes of kyphoplasty at the thoracolumbar junction. Suggestion of a nondisplaced healing rib fracture of the lateral left 8th rib. No acute fracture is radiographically apparent. Regional osseous structures are otherwise unremarkable. XR/XR chest 1V portable [id number] IMPRESSION: 1. No evidence of acute cardiopulmonary disease. Chronic findings as above.
--- NOTE | 2024-01-03 13:05 | CTR_ITS ---
PROCEDURE INFORMATION: Exam: CT Thoracic Spine Without Contrast Exam date and time: 01/03/2024 1:26 PM Age: 58 years old Clinical indication: Pain in thoracic spine TECHNIQUE: Imaging protocol: Computed tomography of the thoracic spine without contrast. Radiation optimization: All CT scans at this facility use at least one of these dose optimization techniques: automated exposure control; mA and/or kV adjustment per patient size (includes targeted exams where dose is matched to clinical indication); or iterative reconstruction. COMPARISON: MR thoracic spin wo con* [id number] 01/08/2021 1:04 PM RADIATION DOSE METRICS: Total DLP (mGy-cm): 322.11 FINDINGS: Bones/joints: Prior kyphoplasty changes at L2. There severe compression deformities at T10 and T12 and moderate compression deformities at T11 and T7 of indeterminate age. There is retropulsion the posterosuperior endplate components narrowing the spinal canal at T12. There is prominent thoracic kyphosis. Subacute healing nondisplaced fracture of the posterior right 9th rib. Subacute healing fracture of the lateral left 8th rib. No acute rib fracture is seen. Chronic unfused fracture of the sternum. Soft tissues: Unremarkable. Vasculature: Atherosclerosis throughout the thoracic aorta without aneurysm. Lymph nodes: No mediastinal lymphadenopathy. Lungs: Severe diffuse emphysematous changes throughout the lungs without consolidation. The tracheobronchial airways are clear. Pleural spaces: No pneumothorax or pleural effusion is seen. Heart: Normal size of heart. No pericardial effusion. Intraperitoneal space: The visualized upper abdominal solid organs and hollow viscera are unremarkable. CT/CT thoracic spin wo con* [id number] IMPRESSION: 1. Severe age indeterminate compression deformities at T10 and T12 with retropulsion of the posterosuperior endplate of T12 into the spinal canal causing central canal narrowing. There is also moderate compression deformities at T7 and T11. MRI may help clarify if clinical concern for acute fracture or spinal cord compression which is not able to be evaluated on this CT exam. 2. Subacute healing rib fractures of the right posterior 9th and left lateral 8 ribs. No acute rib fracture is seen. 3. Severe diffuse emphysematous changes throughout the lungs.
--- NOTE | 2024-01-03 13:05 | W.ED.BACK ---
HPI - Back Pain/Injury General: Chief Complaint: Back Pain/Injury Stated Complaint: back pain, difficult breathing Time Seen by Provider: 01/03/24 13:00 Source: patient Mode of arrival: ambulatory Limitations: no limitations History of Present Illness: 58-year-old female states that she has had spine fractures in the past likely is osteoporosis states that she had twisted it and has been having thoracic back pain since and states pains been very sharp in nature worse with movement rates it a 7 out of 10 concerned she has another fracture. She denies any low back pain Associated symptoms: Deny abdominal pain, chills, fever(s), nausea or vomiting Related Data Home Medications Medication Instructions Recorded Confirmed atorvastatin 10 mg tablet (Lipitor) 10 mg PO .three times weekly 03/29/22 10/01/23 lidocaine 5 % topical patch 1 patch topical DAILY PRN Pain 03/29/22 10/01/23 (Lidoderm) melatonin 5 mg capsule 10 mg PO BEDTIME 03/29/22 10/01/23 aripiprazole 5 mg tablet (Abilify) 5 mg PO QAM 12/27/22 10/01/23 fluoxetine 20 mg capsule 60 mg PO QAM 12/27/22 10/01/23 montelukast 10 mg tablet 10 mg PO QAM 12/27/22 10/01/23 (Singulair) ondansetron 8 mg disintegrating 8 mg PO QAM 12/27/22 10/01/23 tablet pantoprazole 40 mg tablet,delayed 40 mg PO QAM 12/27/22 10/01/23 release (Protonix) oxycodone 20 mg tablet,crush 30 mg PO BID 10/01/23 10/01/23 resistant,extended release 12 hr (OxyContin) Previous Rx's Medication Instructions Recorded ipratropium 0.5 mg-albuterol 3 mg 3 ml inhalation Q6H PRN shortness 08/17/21 (2.5 mg base)/3 mL nebulization of breath or wheezing 90 days #810 soln mL furosemide 20 mg tablet 20 mg PO .every other day #90 tabs 01/14/22 apixaban 5 mg tablet 5 mg PO BID #180 tabs 12/12/22 isosorbide mononitrate 60 mg 60 mg PO QAM #90 tabs 03/07/23 tablet,extended release 24 hr isosorbide mononitrate 30 mg 30 mg PO QAM #90 tabs 04/17/23 tablet,extended release 24 hr diltiazem HCl 30 mg tablet 90 mg (3 x 30 mg) PO DIRECTED 06/17/23 #270 tabs prednisone 10 mg tablet 10 mg PO DAILY flare up #10 tabs 07/24/23 albuterol sulfate 90 mcg/actuation 2 puff inhalation Q6H PRN 08/27/23 aerosol inhaler (ProAir HFA) shortness of breath or wheezing #54 grams arformoterol 15 mcg/2 mL solution 2 ml inhalation BID #360 mL 08/27/23 for nebulization (Brovana) budesonide 0.5 mg/2 mL suspension 0.5 mg (2 mL) inhalation BID #360 08/27/23 for nebulization (Pulmicort) mL metoprolol succinate 25 mg 25 mg PO QAM #90 tabs 10/01/23 tablet,extended release 24 hr nitroglycerin 0.4 mg sublingual See Rx Instructions .Route 12/03/23 tablet .COMPLEX #25 tabs Allergies Allergy/AdvReac Type Severity Reaction Status Date / Time tramadol AdvReac Severe ADR-Shakine Verified 10/01/23 15:16 ss Review of Systems Const: Denies: fever(s), chills, body aches or change in appetite ENMT: Denies: throat pain or dental pain Card: Denies: chest pain Resp: Denies: non-productive cough GI: Denies: abdominal pain, nausea, vomiting or diarrhea Musc: Reports: back pain; Denies: neck pain Skin/Breast: Denies: rash Neuro: Denies: headache(s) PFSH ED PFSH: Medical History Leukocytosis Acute exacerbation of chronic obstructive airways disease Community acquired pneumonia Tachycardia with heart rate 100-120 beats per minute Heart failure CHF (congestive heart failure) Chest pain Thoracic compression fracture Pulmonary cachexia due to COPD Pulmonary hypertension Unexplained weight loss Acute sinusitis Chronic pain Chronic respiratory failure with hypoxia Nicotine addiction Pulmonary embolus H/O Prinzmetal angina Panlobular emphysema Dyslipidemia Nicotine dependence, unspecified, uncomplicated Anxiety Cough with hemoptysis Low back pain Reactive depression Intervertebral disc disorders with radiculopathy, lumbosacral region COPD (chronic obstructive pulmonary disease) Chronic right heart failure Heterozygous alpha 1-antitrypsin deficiency Surgical History S/P lumbar discectomy Hx of tubal ligation History of esophagogastroduodenoscopy (EGD) 02/19/2016- HITAL HERNIA- ESOPHAGITIS- AND ESOPHAGEAL MONILIASIS Family History Father Myocardial infarct Stroke Lung disease Hypertension Brother Myocardial infarct Sister Anemia Diabetes Lung disease Hypertension [id number] deficiency Mother Diabetes Lung disease [id number] deficiency Social History Smoking and tobacco/nicotine status: former use of tobacco/nicotine Quit status (tobacco/nicotine): has quit using Year quit tobacco: 2021 Former quit date comment: Hx of 1 ppd X 31 years Second hand smoke exposure: Yes Alcohol intake: current Alcohol intake frequency: holidays/special occasions only Substance/Drug Use: never Lives independently: Yes Household members: spouse Housing: House Marital status: Current occupational status: disabled Do you think of yourself as: Straight/Heterosexual Current gender identity: Female Physical Exam Const: COMMON NORMALS: patient oriented x3 HENMT: COMMON NORMALS: normocephalic and atraumatic HEAD & SCALP: normocephalic and atraumatic Eye: COMMON NORMALS: Equal, round and reactive pupils present and EOMs intact bilaterally PUPIL: Yes Equal, round and reactive pupils present Neck/C-Spine: COMMON NORMALS: full ROM and supple Chest: COMMONS NORMALS: normal inspection of the chest and normal palpation of entire chest wall Resp: COMMON NORMALS: normal respiratory effort, No retractions, No use of accessory muscles and clear to auscultation bilaterally AUSCULTATION: clear to auscultation bilaterally Cardio: COMMON NORMALS: regular rate, regular rhythm and No murmurs present (Cardio) RATE: regular rate RHYTHM: regular rhythm Back/Pelvis: OTHER: Severe scoliosis of spine with some tenderness along the T-spine Extremity: COMMON NORMALS: normal to inspection and full ROM Neuro: COMMON NORMALS: patient oriented x3, moves all extremities and no focal motor deficits Psych: COMMON NORMALS: mental status grossly normal, Normal thought process present and cooperative THOUGHT PROCESS: Normal thought process present Skin: COMMON NORMALS: no rashes or lesions noted and no wounds GENERAL SKIN EXAM: no rashes or lesions noted Course Vital Signs: Vital signs: Vital Signs Temperature 98.1 F 01/03/24 12:49 Pulse Rate 99 01/03/24 15:27 Respiratory Rate 19 H 01/03/24 12:49 Blood Pressure 146/88 01/03/24 12:49 Pulse Oximetry 96 01/03/24 15:27 Oxygen Delivery Me thod Nasal Cannula 01/03/24 12:49 Oxygen Flow Rate 5 01/03/24 12:49 MDM - Back Pain/Injury Medical Decision Making Patient presents here with back pain CT that shows thoracic fracture she has no neurofindings of cord compression we will get her follow-up with spine surgery return if worsening she understands agrees plan Medical Records I reviewed the patient's medical records. Labs Radiology Impressions Chest X-Ray 01/03/24 13:05 IMPRESSION: 1. No evidence of acute cardiopulmonary disease. Chronic findings as above. Thoracic Spine CT 01/03/24 13:05 IMPRESSION: 1. Severe age indeterminate compression deformities at T10 and T12 with retropulsion of the posterosuperior endplate of T12 into the spinal canal causing central canal narrowing. There is also moderate compression deformities at T7 and T11. MRI may help clarify if clinical concern for acute fracture or spinal cord compression which is not able to be evaluated on this CT exam. 2. Subacute healing rib fractures of the right posterior 9th and left lateral 8 ribs. No acute rib fracture is seen. 3. Severe diffuse emphysematous changes throughout the lungs. All radiology interpretation(s) finalized by discharge Discharge Plan Discharge Patient Disposition: Home Clinical Impression: Compression fx, thoracic spine Condition: Stable Prescriptions: No Action melatonin 5 mg capsule 10 mg PO BEDTIME metoprolol succinate 25 mg tablet extended release 24 hr 25 mg PO QAM Qty: 90 1RF lidocaine [Lidoderm] 5 % adhesive patch,medicated 1 patch TOPICAL DAILY PRN (Reason: Pain) Rx Instructions: put patch on in the am and remove in the evening ipratropium-albuterol 0.5 mg-3 mg(2.5 mg base)/3 mL solution for nebulization 3 ml inhalation Q6H PRN (Reason: shortness of breath or wheezing) 90 Days Qty: 810 4RF furosemide 20 mg tablet 20 mg PO .every other day Qty: 90 3RF apixaban 5 mg tablet 5 mg PO BID Qty: 180 3RF isosorbide mononitrate 60 mg tablet extended release 24 hr 60 mg PO QAM Qty: 90 3RF Rx Instructions: take with 30mg isosorbide mon. to equal 90mg isosorbide mononitrate 30 mg tablet extended release 24 hr 30 mg PO QAM Qty: 90 3RF diltiazem HCl 30 mg tablet 90 mg PO DIRECTED Qty: 270 2RF Rx Instructions: Take 60mg (2 tabs) in AM and 30mg (1 tab) in PM prednisone 10 mg tablet 10 mg PO DAILY Qty: 10 1RF albuterol sulfate [ProAir HFA] 90 mcg/actuation HFA aerosol inhaler 2 puff INHALATION Q6H PRN (Reason: shortness of breath or wheezing) Qty: 54 3RF Brovana 15 mcg/2 mL solution for nebulization 2 ml inhalation BID Qty: 360 3RF budesonide [Pulmicort] 0.5 mg/2 mL suspension for nebulization 0.5 mg inhalation BID Qty: 360 3RF nitroglycerin 0.4 mg tablet, sublingual See Rx Instructions .ROUTE .COMPLEX Qty: 25 1RF Dose Instruction: DISSOLVE 1 TABLET UNDER THE TONGUE EVERY 5 MINUTES NEEDED FOR CHEST PAIN Rx Instructions: DISSOLVE 1 TABLET UNDER THE TONGUE EVERY 5 MINUTES NEEDED FOR CHEST PAIN Lipitor 10 mg tablet 10 mg PO .three times weekly ondansetron 8 mg tablet,disintegrating 8 mg PO QAM Protonix 40 mg tablet,delayed release (DR/EC) 40 mg PO QAM Singulair 10 mg tablet 10 mg PO QAM fluoxetine 20 mg capsule 60 mg PO QAM Abilify 5 mg tablet 5 mg PO QAM oxycodone [OxyContin] 20 mg tablet,oral only,ext.rel.12 hr 30 mg PO BID Discharge Orders: Discharge ED (Routine); Ordered 01/03/24 Ordered By: Marclele Rizo Referrals: Leo Miller DO [Physician] - 4-7 days Ludin Schmitt MD [Primary Care Provider] - Discharge Diet: Advance as tolerated Discharge Activity: Resume usual activity Patient Instructions: Thoracolumbar Fracture (ED) Coding Level of Care Code ED Marketing Research Analyst for Elizabeth Solorzano
[2024-01-03] MEDS: HYDROcodone-acetaminophen 5-325 mg Tablet 1 TAB PO (13:08)
[2024-01-03 15:27] VITALS: PULSE 99; O2SAT 96
--- NOTE | 2024-01-05 08:30 | DCPLANNER ---
messaged ortho for er f/u
== END 2024-01-03 16:01 | disposition home or self-care (01) ==
PROVIDERS: Emergency Provider Emergency Medicine; PCP Internal Medicine
DX: S22.000A Wedge compression fracture of unspecified thoracic vertebra, initial encounter for closed fracture (principal); J44.9 Chronic obstructive pulmonary disease, unspecified; I11.0 Hypertensive heart disease with heart failure; I50.9 Heart failure, unspecified; Z87.891 Personal history of nicotine dependence; X58.XXXA Exposure to other specified factors, initial encounter; E78.5 Hyperlipidemia, unspecified
CPT/HCPCS: 71045; 72128; 99284

== ENCOUNTER → 2024-01-06 08:50 | Outpatient (BNVA) | payer MEDICARE, OTHER, SELFPAY | PROVIDERS: PCP Internal Medicine; Visit Provider Orthopaedic Surgery | DX: S22.000A Wedge compression fracture of unspecified thoracic vertebra, initial encounter for closed fracture (principal); M54.9 Dorsalgia, unspecified; X58.XXXA Exposure to other specified factors, initial encounter; Z46.89 Encounter for fitting and adjustment of other specified devices; S22.000D Wedge compression fracture of unspecified thoracic vertebra, subsequent encounter for fracture with routine healing; X58.XXXD Exposure to other specified factors, subsequent encounter | CPT/HCPCS: 72070; 99214 ==

== ENCOUNTER 2024-01-06 09:47 | Observation (INO) | payer MEDICARE, OTHER, SELFPAY ==
[2024-01-06] VITALS (16 sets, daily range): BP systolic 123–147; BP diastolic 74–88; PULSE 102–127; RESP 16–24; TEMP 36.3–36.8; O2SAT 92–96; BMI 14.4
--- NOTE | 2024-01-06 10:02 | XR_ITS ---
WS: [id number] Exam: XR chest 1V portable [id number] Date/Time of Exam: 01/06/2024 10:05 AM Reason For Exam: dyspnea/cough Comparison 01/03/2024. The lungs are hyperinflated. No consolidating infiltrates noted. Chronic interstitial changes noted b ilaterally. No pleural effusions. Cardiomediastinal silhouette is unremarkable for portable AP techni que. Signs of vertebroplasty involving a single upper lumbar vertebra. Remaining bony structures are intact. Levoscoliosis of the thoracic spine. XR/XR chest 1V portable [id number] IMPRESSION: 1. Pulmonary hyperinflation and chronic interstitial changes. No acute finding.
--- NOTE | 2024-01-06 10:03 | ECG_ITS ---
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: : [id number] Requested By: Evangelist Redd Order Number: [id number] Raghu MD: ANDRÉS HUBER Measurements Intervals [place] Rate: 122 P: 70 WI: 157 QRS: 86 QRSD: 74 T: 69 QT: 309 QTc: 441 Interpretive Statements SINUS TACHYCARDIA VOLTAGE CRITERIA FOR LVH [MEETS CRITERIA IN ONE OF: R(aVL), S(V1), R(V5), R(V5/V6)+S(V1)] NONSPECIFIC T-WAVE ABNORMALITY Compared to ECG 10/01/2023 15:56:32 Left ventricular hypertrophy now present T-wave abnormality now present Sinus rhythm no longer present Myocardial infarct finding no longer present Electronically Signed On 01-06-2024 20:58:05 CDT by ANDRÉS HUBER [email or web address]
--- NOTE | 2024-01-06 10:11 | ED_ITS ---
HPI - SOB/Dyspnea 2 General: Chief Complaint: Shortness of Breath/Dyspnea Stated Complaint: shortness of breath Time Seen by Provider: 01/06/24 10:02 History of Present Illness: HPI Narrative: 58-year-old female presents emergency ro om complaining of shortness of breath and productive cough. This began overnight. Over the weekend that she had twisted felt a popping sensation in her back was seen in the emergency room was found to have a vertebral compression fracture CT and Dr. Liz today from her description sounds like they are working towards getting a kyphoplasty done. She has a known history of COPD is very severe she is on 5 L of oxygen at baseline. She is on prednisone daily. Associated symptoms: Reports chest congestion; Deny abdominal pain, chest pain or fever(s) Related Data Home Medications Medication Instructions Recorded Confirmed atorvastatin 10 mg tablet (Lipitor) 10 mg PO .three times weekly 03/29/22 01/06/24 lidocaine 5 % topical patch 1 patch topical DAILY PRN Pain 03/29/22 01/06/24 (Lidoderm) fluoxetine 20 mg capsule 60 mg PO QAM 12/27/22 01/06/24 montelukast 10 mg tablet 10 mg PO QAM 12/27/22 01/06/24 (Singulair) ondansetron 8 mg disintegrating 8 mg PO QAM 12/27/22 01/06/24 tablet pantoprazole 40 mg tablet,delayed 40 mg PO QAM 12/27/22 01/06/24 release (Protonix) albuterol sulfate 90 mcg/actuation 2 puff inhalation Q6H PRN 01/06/24 01/06/24 aerosol inhaler Shortness Of Breath Or Wheezing aripiprazole 2 mg tablet 2 mg PO QAM 01/06/24 01/06/24 melatonin 10 mg tablet 20 mg PO DAILY 01/06/24 01/06/24 oxycodone 10 mg tablet 10 mg PO QID PRN Pain 01/06/24 01/06/24 oxycodone 30 mg tablet,crush 30 mg PO TID 01/06/24 01/06/24 resistant,extended release 12 hr (OxyContin) prednisone 10 mg tablet 20 mg PO DAILY flare up 01/06/24 01/06/24 psyllium husk 3.4 gram/5.4 gram 1 tbsp PO DAILY PRN Constipation 01/06/24 01/06/24 oral powder (Metamucil) Previous Rx's Medication Instructions Recorded ipratropium 0.5 mg-albuterol 3 mg 3 ml inhalation Q6H PRN shortness 08/17/21 (2.5 mg base)/3 mL nebulization of breath or wheezing 90 days #810 soln mL furosemide 20 mg tablet 20 mg PO .every other day #90 tabs 01/14/22 apixaban 5 mg tablet 5 mg PO BID #180 tabs 12/12/22 isosorbide mononitrate 60 mg 60 mg PO QAM #90 tabs 03/07/23 tablet,extended release 24 hr isosorbide mononitrate 30 mg 30 mg PO QAM #90 tabs 04/17/23 tablet,extended release 24 hr diltiazem HCl 30 mg tablet 90 mg (3 x 30 mg) PO DIRECTED 06/17/23 #270 tabs arformoterol 15 mcg/2 mL solution 2 ml inhalation BID #360 mL 08/27/23 for nebulization (Brovana) budesonide 0.5 mg/2 mL suspension 0.5 mg (2 mL) inhalation BID #360 08/27/23 for nebulization (Pulmicort) mL metoprolol succinate 25 mg 25 mg PO QAM #90 tabs 10/01/23 tablet,extended release 24 hr nitroglycerin 0.4 mg sublingual See Rx Instructions .Route 12/03/23 tablet .COMPLEX #25 tabs TLSO #1 ea 01/06/24 cyclobenzaprine 10 mg tablet 10 mg PO TID 7 days #21 tabs 01/06/24 diazepam 5 mg tablet 5 mg PO BID PRN anxiety #2 tabs 01/07/24 doxycycline monohydrate 100 mg 100 mg PO BID 5 days #10 tabs 01/07/24 tablet prednisone 10 mg tablet See Rx Instructions .Route 01/07/24 .COMPLEX #90 tabs Allergies Allergy/AdvReac Type Severity Reaction Status Date / Time tramadol AdvReac Severe ADR-Shakine Verified 10/01/23 15:16 ss Review of Systems 2 Const: Denies: fever(s) or chills Card: Denies: chest pain Resp: Reports: dyspnea, productive cough, wheezing and chest congestion GI: Denies: abdominal pain : Denies: dysuria, urinary frequency or urinary urgency Musc: Denies: neck pain or back pain Skin/Breast: Denies: rash PFSH ED 2 PFSH: Medical History GERD (gastroesophageal reflux disease) Dyslipidemia History of DVT (deep vein thrombosis) 02/2021 left peroneal vein History of PFTs 11/2021 severe airflow obstruction, severely reduced gas transfer, air trapping, near significant post-bronchodilator response Osteoporosis DEXA scan 12/2021 left hip T -3.4, Z -2.3; right hip T -3.0, Z -1.9 History of cardiovascular stress test 03/2021 no lexiscan induced ekg changes or symptoms, normal myocardial perfusion, TID index 1.4 History of echocardiogram 12/2021 EF 70%, grade 1 diastolic dysfunction, moderate pulmonary hypertension with PAP 47mmHg History of Holter monitoring 06/2022 baseline sinus, less than 1% supraventricular ectopic beats, no atrial arrhythmias Leukocytosis Community acquired pneumonia Tachycardia with heart rate 100-120 beats per minute Thoracic compression fracture Pulmonary cachexia due to COPD Pulmonary hypertension Unexplained weight loss Acute sinusitis Chronic pain Chronic respiratory failure with hypoxia Pulmonary embolus 2017 H/O Prinzmetal angina Panlobular emphysema Nicotine dependence, unspecified, uncomplicated 31 pack year history, quit in 2021 Anxiety Cough with hemoptysis Low back pain Reactive depression Intervertebral disc disorders with radiculopathy, lumbosacral region COPD (chronic obstructive pulmonary disease) Chronic right heart failure Heterozygous alpha 1-antitrypsin deficiency Surgical History History of cardiac catheterization 02/2021 normal coronaries History of kyphoplasty 02/2021 L2 S/P lumbar discectomy Hx of tubal ligation History of esophagogastroduodenoscopy (EGD) 02/19/2016- HITAL HERNIA- ESOPHAGITIS- AND ESOPHAGEAL MONILIASIS Family History Father Myocardial infarct Stroke Lung disease Hypertension Brother Myocardial infarct Sister Anemia Diabetes Lung disease Hypertension [id number] deficiency Mother Diabetes Lung disease [id number] deficiency Social History Smoking and tobacco/nicotine status: former use of tobacco/nicotine Quit status (tobacco/nicotine): has quit using Year quit tobacco: 2021 Former quit date comment: Hx of 1 ppd X 31 years Second hand smoke exposure: Yes Alcohol intake: current Alcohol intake frequency: holidays/special occasions only Substance/Drug Use: never Lives independently: Yes Household members: spouse Housing: House Marital status: Current occupational status: disabled Do you think of yourself as: Straight/Heterosexual Current gender identity: Female Physical Exam 2 Const: GENERAL APPEARANCE: cooperative ORIENTATION/CONSCIOUSNESS: Yes awake, Yes oriented to person, Yes oriented to place and Yes oriented to time HENMT: COMMON NORMALS: normocephalic, atraumatic and hearing grossly normal bilaterally HEAD & SCALP: normocephalic and atraumatic Resp: EFFORT & INSPECTION: Yes tachypneic, Yes pursed lip breathing, Yes retractions, Yes uses accessory muscles and Yes audible wheezes AUSCULTATION: rhonchi and wheezes Cardio: COMMON NORMALS: regular rate, regular rhythm and No murmurs present (Cardio) RATE: regular rate RHYTHM: regular rhythm GI: COMMON NORMALS: Soft to palpation and No hepatosplenomegaly present A USCULTATION: Yes normoactive bowel sounds PALPATION: Yes Soft to palpation, No Tenderness to palpation present (GI), No Guarding due to palpation present (GI) and Yes No hepatosplenomegaly present Extremity: COMMON NORMALS: normal to inspection, capillary refill normal, no clubbing, cyanosis or edema, no calf tenderness and no pedal edema Neuro: SENSORIUM/ORIENTATION: Yes oriented to person, Yes oriented to place and Yes oriented to time Skin: COMMON NORMALS: no rashes or lesions noted GENERAL SKIN EXAM: no rashes or lesions noted Course 2 Vital Signs: Vital signs: Vital Signs Temperature 98.4 F 01/07/24 13:28 Pulse Rate 100 01/07/24 13:28 Respiratory Rate 15 01/07/24 13:28 Blood Pressure 131/83 01/07/24 13:28 Pulse Oximetry 93 01/07/24 13:28 Oxygen Delivery Me thod Nasal Cannula 01/07/24 08:00 Oxygen Flow Rate 56 01/07/24 11:39 MDM - SOB/Dyspnea Medical Decision Making COPD exacerbation will admit for aggressive pulmonary toilet steroid along with scheduled nebulizers. Patient is persistently tachycardic tachypneic and is complaining of shortness of breath. Recent compression fracture of the spine which she is following up with Dr. Miller. Continue chronic anticoagulation. Medical Records I reviewed the patient's medical records. Lab Data I reviewed the patient's lab results. 01/07/24 05:45 01/07/24 05:45 Labs/Radiology: Radiology Impressions Chest X-Ray 01/06/24 10:02 IMPRESSION: 1. Pulmonary hyperinflation and chronic interstitial changes. No acute finding. Laboratory Results WBC 19.09 10^3/uL (3.29-11.43) H 01/06/24 10:25 RBC 4.57 10^6/uL (3.85-5.65) 01/06/24 10:25 Hgb 13.50 g/dL (11.27-16.99) 01/06/24 10:25 Hct 42.1 % (36-47) 01/06/24 10:25 MCV 92.1 fl (85-98) 01/06/24 10:25 MCH 29.5 pg (27-33) 01/06/24 10:25 MCHC 32.1 g/dL (30-55) 01/06/24 10:25 RDW 13.4 % (12.1-15.1) 01/06/24 10:25 Plt Count 304 10^3/cmm (157-399) 01/06/24 10:25 MPV 11.4 fL (7.4-10.4) H 01/06/24 10:25 Neut % (Auto) 88.3 % 01/06/24 10:25 Lymph % (Auto) 4.8 % 01/06/24 10:25 [place] % (Auto) 5.8 % 01/06/24 10:25 Eos % (Auto) 0.3 % 01/06/24 10:25 Baso % (Auto) 0.3 % 01/06/24 10:25 Neut # (Auto) 16.86 10^3/uL (1.8-7.7) H 01/06/24 10:25 Lymph # (Auto) 0.9 10^3/uL (0.8-4.8) 01/06/24 10:25 [place] # (Auto) 1.1 10^3/uL (0.2-0.9) H 01/06/24 10:25 Eos # (Auto) 0.1 10^3/uL (0.0-0.8) 01/06/24 10:25 Baso # (Auto) 0.1 10^3/uL (0.0-0.1) 01/06/24 10:25 Nucleated RBC % (auto) 0 % 01/06/24 10: Nucleated RBCs # 0.0 /100WBC 01/06/24 10:25 Specimen Type Arterial 01/06/24 10:20 Sample Site Radial, left 01/06/24 10:20 ABG pH 7.43 (7.35-7.45) 01/06/24 10:20 ABG pCO2 43.7 mmHg (35-45) 01/06/24 10:20 ABG pO2 61.9 mmHg (80.0-100.0) L 01/06/24 10:20 ABG HCO3 28.7 mmol/L (22-26) H 01/06/24 10:20 ABG O2 Saturation 91.9 01/06/24 10:20 ABG Base Excess 3.7 mmol/L (-2.0-2.0) H 01/06/24 10:20 Eliu Test Pos 01/06/24 10:20 A-a O2 Gradient 4.5 mmHg (5-10) L 01/06/24 10:20 Hematocrit 40.6 % (37-47) 01/06/24 10:20 Hgb O2 Saturation 89.6 % (95-100) L 01/06/24 10:20 Carboxyhemoglobin 1.5 %THgb (0.4-20.1) 01/06/24 10:20 Methemoglobin 1.1 % (0.4-1.5) 01/06/24 10:20 Total Hemoglobin 13.2 g/dL (12-16) 01/06/24 10:20 Sodium 137.0 mmol/L (131-143) 01/06/24 10:20 Potassium 3.7 mmol/L (3.5-5.0) 01/06/24 10:20 Glucose 132.0 mg/dL (70-115) H 01/06/24 10:20 Ionized Calcium 1.3 mmol/L (1.1-1.4) 01/06/24 10:20 O2 Delivery Device Nc 01/06/24 10:20 O2 Liters/Min 5.0 % 01/06/24 10:20 Behavioral Health Therapist ID Cak 01/06/24 10:20 Sodium 136 mmol/L (136-145) 01/06/24 10:25 Potassium 4.1 mmol/L (3.5-5.1) 01/06/24 10:25 Chloride 94 mmol/L (98-107) L 01/06/24 10:25 Carbon Dioxide 28 mmol/L (22-29) 01/06/24 10:25 Anion Gap 18.1 (5-19) 01/06/24 10:25 BUN 9 mg/dL (6-20) 01/06/24 10:25 Creatinine 0.6 mg/dL (0.5-0.9) 01/06/24 10:25 GFR Calculation 103.0 mL/min (90-130) 01/06/24 10:25 Glucose 132 mg/dL (65-115) H 01/06/24 10:25 Calculated Osmolality 283 mOsm/kg (285-295) L 01/06/24 10:25 Calcium 9.8 mg/dL (8.5-10.5) 01/06/24 10:25 Total Bilirubin 0.5 mg/dL (0.15-1.2) 01/06/24 10:25 AST 16 U/L (0-32) 01/06/24 10:25 ALT 16 U/L (0-33) 01/06/24 10:25 Alkaline Phosphatase 90 U/L (35-105) 01/06/24 10:25 Troponin T Baseline 14 ng/L (0-10) H 01/06/24 10:25 Troponin T 120 Minute 14.31 ng/L (0-10) H 01/06/24 12:06 Delta Troponin T 0.31 ABS# (0-10) 01/06/24 12:06 Total Protein 7.4 g/dL (6.6-8.7) 01/06/24 10:25 Albumin 4.7 g/dL (3.5-5.2) 01/06/24 10:25 Globulin 2.7 g/dL (1.3-4.6) 01/06/24 10:25 Urine Color Yellow (Yellow) 01/06/24 12:24 Urine Appearance Clear (CLEAR) 01/06/24 12:24 Urine pH 6.5 (5-7) 01/06/24 12:24 Ur Specific [place] 1.007 (1.005-1.030) 01/06/24 12:24 Urine Protein Trace (Negative) A 01/06/24 12:24 Urine Glucose (UA) Negative (Normal) 01/06/24 12:24 Urine Ketones Trace (Negative) 01/06/24 12:24 Urine Blood Negative (Negative) 01/06/24 12:24 Urine Nitrate Negative (Negative) 01/06/24 12:24 Urine Bilirubin Negative (Negative) 01/06/24 12:24 Urine Urobilinogen 0.2 mg/dL (Negative) 01/06/24 12:24 Ur Leukocyte Esterase Negative (Negative) 01/06/24 12:24 Urine RBC 0-2 /hpf (0-2) 01/06/24 12:24 Urine WBC 0-5 /hpf (0-5) 01/06/24 12:24 Ur Squamous Epith Cells 0-5 /hpf (0-5) 01/06/24 12:24 Amorphous Sediment Not Reportable 01/06/24 12:24 Urine Bacteria None seen /hpf (NONE) 01/06/24 12:24 Hyaline Casts 0-4 /lpf H 01/06/24 12:24 All radiology interpretation(s) finalized by discharge Discharge Plan Discharge Patient Disposition: Placed in Observation Admit Provider: Lashon Yarbrough Clinical Impression: Acute exacerbation of chronic obstructive airways disease, Stage 4 very severe COPD by GOLD classification, Chronic hypoxic respiratory failure, on home oxygen therapy, Progressive pulmonary hypertension Discharge Diet: Cardiac Discharge Activity: Resume usual activity Coding Level of Care Code ED Ux Design Lead for Elizabeth Solorzano
[2024-01-06] MEDS: ipratropium-albuterol 3 mL Neb INHALATION ×3 (10:15→20:19)
[2024-01-06 10:32] LABS: Basophils # 0.1 10^3/uL (0.0-0.1); Basophils % 0.3 %; Eosinophils # 0.1 10^3/uL (0.0-0.8); Eosinophils % 0.3 %; Hematocrit 42.1 % (36-47); Lymphocytes # 0.9 10^3/uL (0.8-4.8); Lymphocytes % 4.8 %; Mean Corpuscular HGB Conc 32.1 g/dL (30-55); Mean Corpuscular Hemoglobin 29.5 pg (27-33); Mean Corpuscular Volume 92.1 fl (85-98); Mean Platelet Volume 11.4 fL (7.4-10.4); Monocytes # 1.1 10^3/uL (0.2-0.9); Monocytes % 5.8 %; Neutrophils # 16.86 10^3/uL (1.8-7.7); Neutrophils % 88.3 %; Nucleated Red Blood Cells % 0 %; Platelet Count 304 10^3/cmm (157-399); Red Blood Count 4.57 10^6/uL (3.85-5.65); Red Cell Distribution Width 13.4 % (12.1-15.1); White Blood Count 19.09 10^3/uL (3.29-11.43)
[2024-01-06 10:33] LABS: ABG PCO2 43.7 mmHg (35-45); ABG PH Result 7.43 (7.35-7.45); Alveolar-Arterial Oxygen Gradi 4.5 mmHg (5-10); Arterial Blood Gas Hematocrit 40.6 % (37-47); Base Excess ABG 3.7 mmol/L (-2.0-2.0); Blood Gas Allen Test Pos; Blood Gas Operator Identificat CAK; Blood Gas Sample Site Radial, left; Blood Gas Sample Type Arterial; Carboxyhemoglobin 1.5 %THgb (0.4-20.1); HCO3 ABG 28.7 mmol/L (22-26); HGB O2 Sat 89.6 % (95-100); Ionized Calcium Level - ABG 1.3 mmol/L (1.1-1.4); Methemoglobin 1.1 % (0.4-1.5); Oxygen Device NC; Oxygen Saturation ABG 91.9; PO2 ABG 61.9 mmHg (80.0-100.0); Potassium Level - ABG 3.7 mmol/L (3.5-5.0); Total Hemoglobin 13.2 g/dL (12-16)
[2024-01-06] MEDS: dexamethasone 10 mg/mL INJ IM (10:35)
[2024-01-06 10:51] LABS: Troponin(5th) Baseline 14 ng/L (0-10)
[2024-01-06 10:56] LABS: Alanine Aminotransferase 16 U/L (0-33); Albumin Level 4.7 g/dL (3.5-5.2); Alkaline Phosphatase 90 U/L (35-105); Anion Gap 18.1 (5-19); Aspartate Amino Transferase 16 U/L (0-32); Blood Urea Nitrogen 9 mg/dL (6-20); Calcium 9.8 mg/dL (8.5-10.5); Carbon Dioxide 28 mmol/L (22-29); Chloride 94 mmol/L (98-107); Creatinine Clr Calc Pharmacy 62.2244; Globulin 2.7 g/dL (1.3-4.6); Glucose 132 mg/dL (65-115); Osmolality Calculated 283 mOsm/kg (285-295); Potassium 4.1 mmol/L (3.5-5.1); Sodium 136 mmol/L (136-145); Total Bilirubin 0.5 mg/dL (0.15-1.2); Total Protein 7.4 g/dL (6.6-8.7)
--- NOTE | 2024-01-06 12:02 | ECG_ITS ---
[email or web address] Test Date: 2024-01-06 Pat Name: Elsy Soto Department: Room: Gender: Female Ms Access Database Developer: : 1965 Requested By: Evangelist Redd Order Number: [id number] Reading MD: ANDRÉS HUBER Measurements Intervals [place] Rate: 122 P: 66 UT: 144 QRS: 83 QRSD: 76 T: 58 QT: 316 QTc: 451 Interpretive Statements SINUS TACHYCARDIA ANTEROSEPTAL MYOCARDIAL INFARCTION , OF INDETERMINATE AGE [40+ ms Q WAVE IN V1-V4] Compared to ECG 01/06/2024 10:03:54 Myocardial infarct finding now present Left ventricular hypertrophy no longer present T-wave abnormality no longer present Electronically Signed On 01-06-2024 21:05:15 CDT by ANDRÉS HUBER [email or web address]
[2024-01-06 12:34] LABS: Bilirubin Urine Negative (Negative); Blood Urine Negative (Negative); Glucose Urine UA Negative (Normal); Ketones Urine Trace (Negative); Leukocyte Esterase Urine Negative (Negative); Nitrate Urine Negative (Negative); Protein Urine Trace (Negative); Specific Gravity, Urine 1.007 (1.005-1.030); Urine Appearance Clear (CLEAR); Urine Color Yellow (Yellow); Urobilinogen Urine 0.2 mg/dL (Negative); pH Urine 6.5 (5-7)
[2024-01-06 12:36] LABS: Add Urine Microscopic? YES; Bacteria Urine None Seen /hpf; Hyaline Casts Urine 0-4 /lpf; RBC Urine 0-2 /hpf (0-2); Squamous Epithelial Cell Urine 0-5 /hpf (0-5); WBC Urine 0-5 /hpf (0-5)
--- NOTE | 2024-01-06 12:45 | P.HP_ITS ---
Providers/Chief Complaint 2 Admitting Physician: Lashon Yarbrough MD Primary Care Provider: Ludin Schmitt MD Chief Complaint: shortness of breath History of Present Illness Elsy Soto is a 58-year-old female with a history of stage 4 COPD on chronic oxygen therapy at 5 liters by nasal cannula. She presented to the ER with worsening shortness of breath and productive cough over the last few days. She experienced a twisting injury on Friday, feeling a popping sensation in her back. A CT of the thoracic spine revealed compression fractures of unclear age. She was seen by Dr. Miller, who ordered an MRI for further evaluation that is currently scheduled for Friday. In the ER, she was tachycardic with a heart rate of 110-120 bpm and elevated BP of 140-160/90s. She was afebrile, with a chronically elevated white count. ABG showed 7.34/43.7/61.9 with a low Aa gradient of 4.5. She has a history of prior PE and DVT and is on Eliquis. CXR today showed chronic interstitial changes and pulmonary hyperinflation. EKG showed sinus tachycardia. She received breathing treatment and dexamethasone in the ER. She reported green sputum production starting yesterday, increased wheezing, and difficulty breathing exacerbated by back pain. No fevers. She has noted swelling in her right leg; she had a previous left lower extremity DVT in 2020. She missed one dose of Eliquis last night. She experiences numbness in her right thigh and difficulty walking for some time, worse since back injury 01/02. She had chest pain on Friday with that episode but did not take nitroglycerin. Some degree of pain with inspiration due to increased back pain. No hemoptysis. She takes Oxycodone and Oxycontin for back pain chronically. She has nausea managed with Zofran and reports sluggish bowel movements. She experiences frequent nosebleeds, likely due to dryness. She uses a nebulizer with albuterol every four hours and takes 20 mg of prednisone chronically. A few weeks ago took 40mg daily for a few days for exacerbation. No recent antibiotics. Has had pneumovax within past 5 years. Declines consideration for Flu or Covid shots. Review of Systems 2 General: Reports: Other (ROS as per HPI or as otherwise noted here) Const: Reports: fatigue; Denies: fever(s) or change in weight ENMT: Reports: nasal congestion and post nasal drip; Denies: throat pain Card: Reports: chest pain, palpitations, swelling of feet/ankles, lightheadedness and dyspnea on exertion; Denies: syncope Resp: Reports: dyspnea, productive cough, wheezing, pain on inspiration (but in back) and change in phlegm color (green) GI: Reports: nausea, vomiting (last week) and constipation; Denies: hematochezia : Denies: difficulty voiding or hematuria Musc: Reports: back pain (chronic but worse since injury last week) and other (unable to lay flat due to curvature of back) Skin/Breast: Denies: rash or sores Neuro: Reports: numbness in extremities (right leg groin to knee) and difficulty walking (due to pain and numbness, no focal motor weakness); Denies: frequent falls (last several months ago, fell out of bed, hit table with back) Syd/Lymph: Denies: easy bruising or easy bleeding Medications/Allergies Home Medications Medication Instructions Recorded Confirmed Last Taken Type ipratropium 0.5 mg-albuterol 3 mg 3 ml inhalation Q6H PRN shortness 08/17/21 01/06/24 Unknown Rx (2.5 mg base)/3 mL nebulization of breath or wheezing 90 days #810 soln mL furosemide 20 mg tablet 20 mg PO .every other day #90 tabs 01/14/22 01/06/24 01/05/24 Rx atorvastatin 10 mg tablet (Lipitor) 10 mg PO .three times weekly 03/29/22 01/06/24 01/05/24 History lidocaine 5 % topical patch 1 patch topical DAILY PRN Pain 03/29/22 01/06/24 12/27/22 History (Lidoderm) apixaban 5 mg tablet 5 mg PO BID #180 tabs 12/12/22 01/06/24 01/05/24 Rx fluoxetine 20 mg capsule 60 mg PO QAM 12/27/22 01/06/24 01/06/24 History montelukast 10 mg tablet 10 mg PO QAM 12/27/22 01/06/24 01/06/24 History (Singulair) ondansetron 8 mg disintegrating 8 mg PO QAM 12/27/22 01/06/24 01/06/24 History tablet pantoprazole 40 mg tablet,delayed 40 mg PO QAM 12/27/22 01/06/24 01/06/24 History release (Protonix) isosorbide mononitrate 60 mg 60 mg PO QAM #90 tabs 03/07/23 01/06/24 01/06/24 Rx tablet,extended release 24 hr isosorbide mononitrate 30 mg 30 mg PO QAM #90 tabs 04/17/23 01/06/24 01/06/24 Rx tablet,extended release 24 hr diltiazem HCl 30 mg tablet 90 mg (3 x 30 mg) PO DIRECTED 06/17/23 01/06/24 01/06/24 Rx #270 tabs arformoterol 15 mcg/2 mL solution 2 ml inhalation BID #360 mL 08/27/23 01/06/24 01/05/24 Rx for nebulization (Brovana) budesonide 0.5 mg/2 mL suspension 0.5 mg (2 mL) inhalation BID #360 08/27/23 01/06/24 01/05/24 Rx for nebulization (Pulmicort) mL metoprolol succinate 25 mg 25 mg PO QAM #90 tabs 10/01/23 01/06/24 01/06/24 Rx tablet,extended release 24 hr nitroglycerin 0.4 mg sublingual See Rx Instructions .Route 12/03/23 01/06/24 Unknown Rx tablet .COMPLEX #25 tabs TLSO #1 ea 01/06/24 01/06/24 Unknown Rx albuterol sulfate 90 mcg/actuation 2 puff inhalation Q6H PRN 01/06/24 01/06/24 Unknown History aerosol inhaler Shortness Of Breath Or Wheezing aripiprazole 2 mg tablet 2 mg PO QAM 01/06/24 01/06/24 01/05/24 History cyclobenzaprine 10 mg tablet 10 mg PO TID 7 days #21 tabs 01/06/24 01/06/24 01/06/24 Rx melatonin 10 mg tablet 20 mg PO DAILY 01/06/24 01/06/24 01/05/24 History oxycodone 10 mg tablet 10 mg PO QID PRN Pain 01/06/24 01/06/24 01/06/24 10:00 History oxycodone 30 mg tablet,crush 30 mg PO TID 01/06/24 01/06/24 01/06/24 05:00 History resistant,extended release 12 hr (OxyContin) prednisone 10 mg tablet 20 mg PO DAILY flare up 01/06/24 01/06/24 01/06/24 History psyllium husk 3.4 gram/5.4 gram 1 tbsp PO DAILY PRN Constipation 01/06/24 01/06/24 Unknown History oral powder (Metamucil) Allergies Allergy/AdvReac Type Severity Reaction Status Date / Time tramadol AdvReac Severe ADR-Shakine Verified 10/01/23 15:16 ss PFSH Acute 2 PFSH: Medical History (Updated 01/06/24 @ 15:16 by Lashon Yarbrough MD) GERD (gastroesophageal reflux disease) Dyslipidemia History of DVT (deep vein thrombosis) 02/2021 left peroneal vein History of PFTs 11/2021 severe airflow obstruction, severely reduced gas transfer, air trapping, near significant post-bronchodilator response Osteoporosis DEXA scan 12/2021 left hip T -3.4, Z -2.3; right hip T -3.0, Z -1.9 History of cardiovascular stress test 03/2021 no lexiscan induced ekg changes or symptoms, normal myocardial perfusion, TID index 1.4 History of echocardiogram 12/2021 EF 70%, grade 1 diastolic dysfunction, moderate pulmonary hypertension with PAP 47mmHg History of Holter monitoring 06/2022 baseline sinus, less than 1% supraventricular ectopic beats, no atrial arrhythmias Leukocytosis Community acquired pneumonia Tachycardia with heart rate 100-120 beats per minute Thoracic compression fracture Pulmonary cachexia due to COPD Pulmonary hypertension Unexplained weight loss Acute sinusitis Chronic pain Chronic respiratory failure with hypoxia Pulmonary embolus 2017 H/O Prinzmetal angina Panlobular emphysema Nicotine dependence, unspecified, uncomplicated 31 pack year history, quit in 2021 Anxiety Cough with hemoptysis Low back pain Reactive depression Intervertebral disc disorders with radiculopathy, lumbosacral region COPD (chronic obstructive pulmonary disease) Chronic right heart failure Heterozygous alpha 1-antitrypsin deficiency Surgical History (Updated 01/06/24 @ 13:06 by Lashon Yarbrough MD) History of cardiac catheterization 02/2021 normal coronaries History of kyphoplasty 02/2021 L2 S/P lumbar discectomy Hx of tubal ligation History of esophagogastroduodenoscopy (EGD) 02/19/2016- HITAL HERNIA- ESOPHAGITIS- AND ESOPHAGEAL MONILIASIS Family History Father Myocardial infarct Stroke Lung disease Hypertension Brother Myocardial infarct Sister Anemia Diabetes Lung disease Hypertension [id number] deficiency Mother Diabetes Lung disease [id number] deficiency Social History Smoking and tobacco/nicotine status: former use of tobacco/nicotine Quit status (tobacco/nicotine): has quit using Year quit tobacco: 2021 Former quit date comment: Hx of 1 ppd X 31 years Second hand smoke exposure: Yes Alcohol intake: current Alcohol intake frequency: holidays/special occasions only Substance/Drug Use: never Lives independently: Yes Household members: spouse Housing: House Marital status: Current occupational status: disabled Do you think of yourself as: Straight/Heterosexual Current gender identity: Female Vitals/I&O/Wt Last Vital Signs Temp 98.3 F 01/06/24 10:11 Pulse 127 H 01/06/24 10:19 Resp 22 H 01/06/24 10:17 BP 147/86 01/06/24 10:11 Pulse Ox 94 01/06/24 10:17 O2 Del Method Nasal Cannula 01/06/24 10:17 O2 Flow Rate 5 01/06/24 10:17 Weight last 48 hrs Weight 38.102 kg Physical Exam 2 Narrative: Consitutional: Thin build, alert, able to answer questions, oriented x 3 HEENT: Normocephalic, extraocular movements are intact, rhinorrhea mild, oropharynx with moist mucous membranes Neck: Supple with prominent jugular venous distention noted Lungs: Increased wheezing noted throughout, occasional pursed lip breathing and pauses during talking to take of breath, supraclavicular retractions noted with movement CV: Sinus tachycardia. No murmurs noted. 2+ pulses. Back: Significant kyphosis noted with tenderness over multiple thoracic vertebra and some redness mid back over vertebral prominences Abdomen: Soft, nontender with positive bowel sounds Extremities: Swelling in the left leg approximately 1 cm larger in diameter than right lower extremity. No palpable cords or calf tenderness. 1+ pitting edema bilaterally at ankles. Clubbing noted. Neuro: Numbness in the right thigh from groin to knee. Handgrip equal. Strength equal at both feet. No abnormal movements. Face symmetric, speech clear. Data 01/06/24 10:25 01/06/24 10:25 Other Labs: Radiology Impressions Chest X-Ray 01/06/24 10:02 IMPRESSION: 1. Pulmonary hyperinflation and chronic interstitial changes. No acute finding. Laboratory Results WBC 19.09 10^3/uL (3.29-11.43) H 01/06/24 10:25 RBC 4.57 10^6/uL (3.85-5.65) 01/06/24 10:25 Hgb 13.50 g/dL (11.27-16.99) 01/06/24 10:25 Hct 42.1 % (36-47) 01/06/24 10: MCV 92.1 fl (85-98) 01/06/24 10:25 MCH 29.5 pg (27-33) 01/06/24 10:25 MCHC 32.1 g/dL (30-55) 01/06/24 10:25 RDW 13.4 % (12.1-15.1) 01/06/24 10: Plt Count 304 10^3/cmm (157-399) 01/06/24 10: MPV 11.4 fL (7.4-10.4) H 01/06/24 10:25 Neut % (Auto) 88.3 % 01/06/24 10:25 Lymph % (Auto) 4.8 % 01/06/24 10:25 [place] % (Auto) 5.8 % 01/06/24 10:25 Eos % (Auto) 0.3 % 01/06/24 10:25 Baso % (Auto) 0.3 % 01/06/24 10:25 Neut # (Auto) 16.86 10^3/uL (1.8-7.7) H 01/06/24 10:25 Lymph # (Auto) 0.9 10^3/uL (0.8-4.8) 01/06/24 10:25 [place] # (Auto) 1.1 10^3/uL (0.2-0.9) H 01/06/24 10:25 Eos # (Auto) 0.1 10^3/uL (0.0-0.8) 01/06/24 10:25 Baso # (Auto) 0.1 10^3/uL (0.0-0.1) 01/06/24 10:25 Nucleated RBC % (auto) 0 % 01/06/24 10:25 Nucleated RBCs # 0.0 /100WBC 01/06/24 10:25 Specimen Type Arterial 01/06/24 10:20 Sample Site Radial, left 01/06/24 10:20 ABG pH 7.43 (7.35-7.45) 01/06/24 10:20 ABG pCO2 43.7 mmHg (35-45) 01/06/24 10:20 ABG pO2 61.9 mmHg (80.0-100.0) L 01/06/24 10:20 ABG HCO3 28.7 mmol/L (22-26) H 01/06/24 10:20 ABG O2 Saturation 91.9 01/06/24 10:20 ABG Base Excess 3.7 mmol/L (-2.0-2.0) H 01/06/24 10:20 Eliu Test Pos 01/06/24 10:20 A-a O2 Gradient 4.5 mmHg (5-10) L 01/06/24 10:20 Hematocrit 40.6 % (37-47) 01/06/24 10:20 Hgb O2 Saturation 89.6 % (95-100) L 01/06/24 10:20 Carboxyhemoglobin 1.5 %THgb (0.4-20.1) 01/06/24 10:20 Methemoglobin 1.1 % (0.4-1.5) 01/06/24 10:20 Total Hemoglobin 13.2 g/dL (12-16) 01/06/24 10:20 Sodium 137.0 mmol/L (131-143) 01/06/24 10:20 Potassium 3.7 mmol/L (3.5-5.0) 01/06/24 10:20 Glucose 132.0 mg/dL (70-115) H 01/06/24 10:20 Ionized Calcium 1.3 mmol/L (1.1-1.4) 01/06/24 10:20 O2 Delivery Device Nc 01/06/24 10:20 O2 Liters/Min 5.0 % 01/06/24 10:20 Instrument Lens Generator ID Cak 01/06/24 10:20 Sodium 136 mmol/L (136-145) 01/06/24 10:25 Potassium 4.1 mmol/L (3.5-5.1) 01/06/24 10:25 Chloride 94 mmol/L (98-107) L 01/06/24 10:25 Carbon Dioxide 28 mmol/L (22-29) 01/06/24 10:25 Anion Gap 18.1 (5-19) 01/06/24 10:25 BUN 9 mg/dL (6-20) 01/06/24 10:25 Creatinine 0.6 mg/dL (0.5-0.9) 01/06/24 10:25 GFR Calculation 103.0 mL/min (90-130) 01/06/24 10:25 Glucose 132 mg/dL (65-115) H 01/06/24 10:25 Calculated Osmolality 283 mOsm/kg (285-295) L 01/06/24 10:25 Calcium 9.8 mg/dL (8.5-10.5) 01/06/24 10:25 Total Bilirubin 0.5 mg/dL (0.15-1.2) 01/06/24 10:25 AST 16 U/L (0-32) 01/06/24 10:25 ALT 16 U/L (0-33) 01/06/24 10:25 Alkaline Phosphatase 90 U/L (35-105) 01/06/24 10:25 Troponin T Baseline 14 ng/L (0-10) H 01/06/24 10:25 Troponin T 120 Minute 14.31 ng/L (0-10) H 01/06/24 12:06 Delta Troponin T 0.31 ABS# (0-10) 01/06/24 12:06 Total Protein 7.4 g/dL (6.6-8.7) 01/06/24 10:25 Albumin 4.7 g/dL (3.5-5.2) 01/06/24 10:25 Globulin 2.7 g/dL (1.3-4.6) 01/06/24 10:25 Urine Color Yellow (Yellow) 01/06/24 12:24 Urine Appearance Clear (CLEAR) 01/06/24 12:24 Urine pH 6.5 (5-7) 01/06/24 12:24 Ur Specific [place] 1.007 (1.005-1.030) 01/06/24 12:24 Urine Protein Trace (Negative) A 01/06/24 12:24 Urine Glucose (UA) Negative (Normal) 01/06/24 12:24 Urine Ketones Trace (Negative) 01/06/24 12:24 Urine Blood Negative (Negative) 01/06/24 12:24 Urine Nitrate Negative (Negative) 01/06/24 12:24 Urine Bilirubin Negative (Negative) 01/06/24 12:24 Urine Urobilinogen 0.2 mg/dL (Negative) 01/06/24 12:24 Ur Leukocyte Esterase Negative (Negative) 01/06/24 12:24 Urine RBC 0-2 /hpf (0-2) 01/06/24 12:24 Urine WBC 0-5 /hpf (0-5) 01/06/24 12:24 Ur Squamous Epith Cells 0-5 /hpf (0-5) 01/06/24 12:24 Amorphous Sediment Not Reportable 01/06/24 12:24 Urine Bacteria None seen /hpf (NONE) 01/06/24 12:24 Hyaline Casts 0-4 /lpf H 01/06/24 12:24 A&P Assessment and plan (1) Stage 4 very severe COPD by GOLD classification: Pt presents with worsening SOB and productive cough with green sputum. Increased wheezing and difficulty breathing exacerbated by back pain from injury a few days ago as well as worsening constipation. Known [id number] deficiency - Continue breathing treatments and increase prednisone to 60 mg, tapering back down to 20 mg. - Doxycycline. - Provide nebulizer equivalent medications for home inhalers, usually on budesonide, albuterol, aformoterol. - Continue home oxygen for saturations 88-93%. - Flutter device and incentive spirometer. - Continue home singulair for sinus symptoms. - Add flonase given increase in allergy symptoms lately. (2) Compression fx, thoracic spine: Recent twisting injury with popping sensation in the back. CT showed compression fractures. - MRI scheduled outpatient for further evaluation and being followed by Dr Miller. - Pain management with Oxycodone and Oxycontin, muscle relaxers as needed, lidocaine patch as needed - Add bowel regimen to address associated constipation. Qualifiers: Encounter type: subsequent encounter Thoracic vertebra fracture level: T7 Fracture healing: with routine healing Qualified Code(s): S22.060D - Wedge compression fracture of T7-T8 vertebra, subsequent encounter for fracture with routine healing (3) Progressive pulmonary hypertension: Related to severe COPD and alpha-1 antitrypsin deficiency. - Monitor heart rate and blood pressure. - Administer IV Lasix acutely to manage elevated pressures and associated symptoms. - Has furosemide chronically every other day but has not taken for a few days due to travel into town for medical care limiting bathroom availability. - Continue usual medications with antihypertensive effect, chronically on isosorbide (giving 60mg daily currently rather than 90mg), betablockers, calcium channel blockers. (4) Inappropriate sinus node tachycardia: Long standing problems but at baseline, heart rate will normalize with rest after a while, which it has not done last couple of days. Chronically on beta- blockade and calcium channel blockers, follows with cardiology. - Telemetry monitoring. - Continue home dosing of metoprolol succinate and diltiazem. (5) Edema of left lower extremity: This has been present for a few months and per patient has not been evaluated. Missed one dose of eliquis recently but denies repeated missed doses. - US venous duplex right lower extremity. (6) Chronic anticoagulation: On eliquis due to history of PE/DVT in past. Currently with swelling right leg but normal A-a gradient and maintaining saturations at rest in usual home oxygen. Increase in tachycardia and blood pressure noted, and likely secondary to known pulmonary hypertension, missing diuretics couple days in my assessment currently. - Continue home eliquis. (7) Osteoporosis: Steroid related, with multiple current compression fractures of likely different ages, two subacute rib fractures and prior kyphoplasty - Check vitamin D level. - Add calcium with vitamin D supplementation. - May benefit from consideration of additional targeted treatment to help with overall osteoporosis and fracture management, back pain control. Qualifiers: Osteoporosis type: other Presence of current pathological fracture: w ith current pathological fracture Encounter type: subsequent encounter F racture healing: with routine healing Qualified Code(s): M80.80XD - Other osteoporosis with current pathological fracture, unspecified site, subsequent encounter for fracture with routine healing (8) Chronic use of steroids: Taking prednisone 20mg daily every day, with long time systemic steroid use. Received dexamethasone in ED. - Will increase steroids with planned taper to home dosing. (9) Malnutrition: Secondary to COPD severity with increased metabolic demand, unbalanced protein synthesis and protein breakdown - Nutrition consultation for supplement recommendations. - Check TSH Qualifiers: Malnutrition type: protein-calorie malnutrition Protein-calorie malnutrition severity: moderate Qualified Code(s): E44.0 - Moderate protein- calorie malnutrition (10) Chronic, continuous use of opioids: Chroncially on Oxycontin and oxycodone IR for breakthrough pain. PDMP checked, one prescriber, Dr Schmitt. - Continue Oxycontin and oxycodone as per home dosing for now. - Monitor for excessive sedation impacting respiratory status. - PRN naloxone ordered. (11) Dyslipidemia: Chronically on statin therapy. Had unremarkable cardiac catheterization in 2014. Unremarkable stress test in 2021. Initial EKG without acute changes beyond tachycardia. 2 hr troponin delta not elevated. - Continue home atorvastatin dosing. - Continue serial cardiac enzymes. (12) GERD (gastroesophageal reflux disease): Managed with PPI and Zofran chrnoically. Given anticoagulation, at risk of significant GI bleeding without management - Continue home pantoprazole. - Continue Zofran as needed. Qualifiers: Esophagitis presence: without esophagitis Qualified Code(s): K21.9 - Gastro-esophageal reflux disease without esophagitis (13) Depression with anxiety: Chronically on aripipazole, fluoxetine, melatonin with good control - Continue usual home medications except melatonin which is currently non- formulary. Plan Frequent mild nose bleeds in a patient on oxygen and anticoagulation. - Nasal saline for moisturizing - Monitor for significant bleeding. Elevated blood sugar without a history of diabetes, suspect from steroids - Check A1c VTE prophylaxis: chronically on eliquis GI Prophylaxis: chronically on PPI Antibiotics: doxycycline started 01/05 Pending studies: venous duplex right lower extremity, vitamin D level, A1c, TSH, 6hr troponin, am labs Telemetry: ordered secondary to tachycardia Villalba: not currently indicated but with diuresis may consider if pulmonary status deteriorates Line(s): peripheral IVs Disposition plan: Home with outpatient follow up to PCP anticipated. Has followed with pulmonology here previsouly. Has MRI of spine scheduled Friday per her with subsequent follow up to Dr Miller. Has home oxygen. No other needs per her. Would benefit from nutritional supplementation, regular bowel regimen, addition of calcium + vitamin D, consideration for focused therapy for osteoporosis. Will need taper of steroids to home dosing, prescriptions for doxycycline, flonase. Depending on response to diuresis, consideration of daily diuretic therapy. Code Status: Allow natural per discussion with patient. No intubation. Supportive care otherwise Findings, concerns and plans were discussed with patient and family in room and they were given an opportunity to ask questions Attestations 2 Medical Necessity Statement*: Currently anticipate a stay less than two midnights in this patient with end- stage COPD presenting with worsening shortness of breath, increased sputum production, ankle edema and distended neck veins. With her comorbid conditions as noted above in the setting of persistent increase in tachycardia from baseline admitting to observation status for targeted COPD exacerbation management, IV diuresis and close monitoring for improvement back to her baseline. At her best she may get short of breath sitting up from the side of the bed or taking a few steps but usually recovers with rest or sitting back down which has not happened the last 2 days. Additionally given the lower extremity edema and prior history of DVT/PE will check venous Doppler of the right lower extremity. She is chronically on Eliquis but has missed a dose. With normal AA gradient and no change in oxygen requirement suspicion of acute PE is less likely but remains in the differential. Hopefully with aggressive management overnight she will get back to her tenuous baseline. Coding Level of Care Code 58701 High Time for a total of 80 minutes, includes reviewing past or interval history, examining/interviewing patient, placing orders, counseling patient/family/other support, documenting encounter and coordinating care Diagnoses Stage 4 very severe COPD by GOLD classification J44.9 Compression fracture of T7 vertebra with routine healing, subsequent encounter S22.060D Encounter type: subsequent encounter Thoracic vertebra fracture level: T7 Fracture healing: with routine healing Progressive pulmonary hypertension I27.20 Inappropriate sinus node tachycardia I47.11 Edema of left lower extremity R60.0 Chronic anticoagulation Z79.01 Other osteoporosis with current pathological fracture with routine healing, subsequent encounter M80.80XD Osteoporosis type: other Presence of current pathological fracture: with current pathological fracture Encounter type: subsequent encounter Fracture healing: with routine healing Chronic use of steroids Moderate protein-calorie malnutrition E44.0 Malnutrition type: protein-calorie malnutrition Protein-calorie malnutrition severity: moderate Chronic, continuous use of opioids F11.90 Dyslipidemia E78.5 Gastroesophageal reflux disease without esophagitis K21.9 Esophagitis presence: without esophagitis Depression with anxiety F41.8
[2024-01-06 12:49] LABS: Troponin 5 2HR 14.31 ng/L (0-10); Troponin 5 2HR Delta 0.31 ABS# (0-10)
[2024-01-06] MEDS: oxyCODONE 5 mg IR Tab/Cap 10 MG PO ×3 (14:14→22:39)
--- NOTE | 2024-01-06 15:22 | USCV_ITS ---
Elsy Soto Age: 58 Gender: F : 1965 Exam Date: 01/06/2024 19:03 Ordering Phys: Lashon Yarbrough MD Technologist: LENORA Exam Location: [facility] – [place] Indication: RLE edema, hx dvt/pe, missed eliquis dose, dueñas HISTORY: RLE edema, hx dvt/pe, missed eliquis dose, dueñas PROCEDURES: Venous duplex imaging was performed in bilateral lower extremities. The following venous structures were evaluated: common femoral vein, profunda vein, proximal portion of the greater saphenous vein, superficial femoral vein, and the popliteal vein. In addition, the posterior tibial and peroneal veins were evaluated. Serial compression, augmentation maneuvers, and spectral Doppler flow evaluation were performed, which were normal. Bilaterally, the common femoral, superficial femoral, profunda femoral, popliteal, posterior tibial, greater saphenous veins, and the peroneal veins were identified and interrogated in the standard fashion. These veins were found to be easily compressible with spontaneous blood flow. No evidence of thrombus noted. CONCLUSIONS No evidence of right lower extremity DVT. No evidence of left lower extremity DVT. Jose Alfredo Sandoval MD (Electronically Signed) Final Date: 09 January 2024 10:34 S
--- NOTE | 2024-01-06 16:12 | ECG_ITS ---
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
[2024-01-06 17:26] LABS: Troponin 5 6HR 12.79 ng/L (0-10)
[2024-01-06] MEDS: sennosides-docusate Tablet 2 TAB PO (17:28)
[2024-01-06] MEDS: calcium carb-vit d 600mg/400unit 1 Tablet 1 EACH PO (17:28)
[2024-01-06] MEDS: fluticasone nasal spray 16gm Btl 1 SPRAY NASAL (17:28)
[2024-01-06 17:29] LABS: Troponin 5 6HR Delta -1.21 ng/L (0-12)
[2024-01-06] MEDS: apixaban 5 mg Tablet PO (17:29)
[2024-01-06] MEDS: FUROsemide 10 mg/mL SDV 2mL 20 MG IVP (17:29)
[2024-01-06] MEDS: potassium chloride ER 20 mEq Tablet PO (17:29)
[2024-01-06] MEDS: doxycycline 100 mg Tablet PO (17:29)
[2024-01-06] MEDS: budesonide 0.5 mg/2 mL Neb INHALATION (20:19)
[2024-01-06] MEDS: oxyCODONE ER 10 MG, oxyCODONE ER 20 MG 30 MG PO (20:35)
[2024-01-06] MEDS: dilTIAZem 30 mg Tablet PO (20:35)
[2024-01-06] MEDS: ondansetron 4 MG Tablet PO (20:40)
[2024-01-07] VITALS (10 sets, daily range): BP systolic 131–137; BP diastolic 79–86; PULSE 76–110; RESP 15–22; TEMP 36.6–36.9; O2SAT 92–97
[2024-01-07] MEDS: ipratropium-albuterol 3 mL Neb INHALATION ×2 (03:04→08:23)
[2024-01-07] MEDS: ondansetron 4 MG Tablet PO (04:54)
[2024-01-07] MEDS: oxyCODONE 5 mg IR Tab/Cap 10 MG PO ×2 (04:54→09:44)
[2024-01-07] MEDS: metoprolol succinate ER (24 HR) 25 mg Tablet PO (04:55)
[2024-01-07] MEDS: ARIPiprazole 2 mg Tablet PO (04:55)
[2024-01-07] MEDS: fluoxetine 20 mg Capsule 60 MG PO (04:55)
[2024-01-07] MEDS: isosorbide mononitrate ER 60 mg Tablet PO (04:55)
[2024-01-07] MEDS: montelukast sodium 10 mg Tablet PO (04:55)
[2024-01-07] MEDS: pantoprazole DR 40 mg Tablet PO (04:56)
[2024-01-07 06:06] LABS: Basophils % 0.1 %; Hematocrit 38.7 % (36-47); Lymphocytes # 0.9 10^3/uL (0.8-4.8); Lymphocytes % 6.7 %; Mean Corpuscular HGB Conc 32.8 g/dL (30-55); Mean Corpuscular Hemoglobin 29.5 pg (27-33); Mean Platelet Volume 11.9 fL (7.4-10.4); Monocytes # 1.4 10^3/uL (0.2-0.9); Monocytes % 9.8 %; Neutrophils # 11.45 10^3/uL (1.8-7.7); Nucleated Red Blood Cells % 0 %; Platelet Count 287 10^3/cmm (157-399); Red Cell Distribution Width 13.4 % (12.1-15.1); White Blood Count 13.82 10^3/uL (3.29-11.43)
[2024-01-07 06:20] LABS: Anion Gap 15.1 (5-19); Blood Urea Nitrogen 11 mg/dL (6-20); Calcium 9.7 mg/dL (8.5-10.5); Carbon Dioxide 30 mmol/L (22-29); Chloride 97 mmol/L (98-107); Glomerular Filtration Rate 127.2 mL/min (90-130); Glucose 133 mg/dL (65-115); Magnesium 1.8 mg/dL (1.7-2.3); Osmolality Calculated 287 mOsm/kg (285-295); Phosphorus 3.7 mg/dL (2.5-4.5); Potassium 4.1 mmol/L (3.5-5.1); Sodium 138 mmol/L (136-145)
[2024-01-07 06:29] LABS: Estmated Average Glucose 108; Hemoglobin A1C 5.4 % (4.0-6.0)
[2024-01-07 06:40] LABS: 25 Hydroxy Vitamin D 21 ng/mL (30-100); NT Pro B Type Natriuretic Pept 574 pg/mL (0-125); Thyroid Stimulating Hormone 0.89 uIU/mL (0.27-4.20)
[2024-01-07] MEDS: budesonide 0.5 mg/2 mL Neb INHALATION (08:23)
[2024-01-07] MEDS: calcium carb-vit d 600mg/400unit 1 Tablet 1 EACH PO (09:03)
[2024-01-07] MEDS: predniSONE 20 mg Tablet 60 MG PO (09:03)
[2024-01-07] MEDS: apixaban 5 mg Tablet PO (09:04)
[2024-01-07] MEDS: dilTIAZem 30 mg Tablet PO (09:04)
[2024-01-07] MEDS: sennosides-docusate Tablet 2 TAB PO (09:04)
[2024-01-07] MEDS: oxyCODONE ER 10 MG, oxyCODONE ER 20 MG 30 MG PO (09:04)
[2024-01-07] MEDS: fluticasone nasal spray 16gm Btl 1 SPRAY NASAL (09:04)
[2024-01-07] MEDS: doxycycline 100 mg Tablet PO (09:04)
--- NOTE | 2024-01-07 09:44 | PC.CHAP ---
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 [] Patient/Family/Request visit [] Outpatient visit [] Follow-up visit [] Physician referral [] Code/Alert [x] Routine visit [] Staff referral [] Actively dying [] Patient sleeping [] Family support [] [] Out of room [] Palliative care [] [] Receiving care in room [] Pre-surgical visit [] Trauma [] Long length of stay [] ICU visit [] Other: Relational/Emotional Strength [x] Patient feels connected with others/family/visitors/staff [] Distress [] Loneliness/isolation [] Abandonment Spirituality of Patient [x] Person of Tri [] Attends Catholic of their Tri [x] Believes in Prayer [] Reads Bible or Cheondoism materials [] There are Spiritual issues to be addressed Calender Let Off Helper Interventions [x] Prayer [x] Active listening [] Non-anxious presence [x] Spiritual/emotional support [] Crisis/trauma care [] Spiritual counseling [] Bereavement support [] Provided bereavement packet [] Provided Bible/devotional materials [] Provided toy/stuffed animal, coloring book to patient or family member [] Provided Communion [] Anointing/Reader [] Salvation [x] Completed spiritual assessment [] Other: Impact on Illness or Injury [] Angry [] Fearful [] Anxious [] Often cries [] Exhaustion [] Unable to work [] Unable to attend episcopalian [] Unable to walk/stand [] Unable to read [] Unable to drive [] Unable to eat/drink [] Unable to sleep [] Unable to be with family [] Patient intubated [] Other: Summary Time spent with patient 5 min
--- NOTE | 2024-01-07 12:47 | P.DS_ITS ---
Discharge Providers Date of Admission: 01/06/24 13:31 Date of Discharge: January 07, 2024 Attending Provider at Admission: Lashon Yarbrough MD Attending Provider at Discharge: David Mckeon MD Primary Care Provider: Ludin Schmitt MD Diagnoses at Discharge Discharge Diagnosis (1) Stage 4 very severe COPD by GOLD classification: Status: Chronic (2) Compression fx, thoracic spine: Status: Acute Qualifiers: Encounter type: subsequent encounter Fracture healing: with routine healing Thoracic vertebra fracture level: T7 Qualified Code(s): S22.060D - Wedge compression fracture of T7-T8 vertebra, subsequent encounter for fracture with routine healing Permanent problem details: CT 01/03/2024 T10 & T12 indeterminate age, T7, T11 with subacute rib fractures right posterior 9th and left lateral 8th (3) Progressive pulmonary hypertension: Status: Chronic (4) Inappropriate sinus node tachycardia: Status: Chronic (5) Edema of left lower extremity: Status: Acute (6) Chronic anticoagulation: Status: Chronic Permanent problem details: Eliquis, due to history of DVT/PE (7) Osteoporosis: Status: Chronic Qualifiers: Osteoporosis type: other Presence of current pathological fracture: with current pathological fracture Encounter type: subsequent encounter Fracture healing: with routine healing Qualified Code(s): M80.80XD - Other osteoporosis with current pathological fracture, unspecified site, subsequent encounter for fracture with routine healing Permanent problem details: DEXA scan 12/2021 left hip T -3.4, Z -2.3; right hip T -3.0, Z -1.9 (8) Chronic use of steroids: Status: Chronic (9) Malnutrition: Status: Acute Qualifiers: Malnutrition type: protein-calorie malnutrition Protein-calorie malnutrition severity: moderate Qualified Code(s): E44.0 - Moderate protein- calorie malnutrition (10) Chronic, continuous use of opioids: Status: Chronic (11) Dyslipidemia: Status: Chronic (12) GERD (gastroesophageal reflux disease): Status: Chronic Qualifiers: Esophagitis presence: without esophagitis Qualified Code(s): K21.9 - Gastro-esophageal reflux disease without esophagitis (13) Depression with anxiety: Status: Chronic Reason for Visit Reason for Visit: shortness of breath Hospital Course Hospital Course this is a 58-year-old female with a past medical history of stage IV COPD on chronic 5 L, chronic prednisone, pulm hypertension, chronic anticoagulation for history of PE/DVT, physical deconditioning, malnutrition secondary to COPD, recent history of compression fracture of thoracic spine following up with Dr. Miller, who presents [facility] for shortness of breath and productive cough Patient was admitted to [facility] for COPD exacerbation, monitored as inpatient, remained on her 5 L required IV steroids, antibiotic therapy, overall clinically improved. On discharge she will be discharged on a prednisone taper, doxycycline with a close follow-up with primary care provider as outpatient For her recent history of thoracic spine compression fractures, follow-up with Dr. Miller, she has MRIs that been scheduled for Friday. Physical Exam Const: COMMON NORMALS: no acute distress and patient oriented x3 Resp: COMMON NORMALS: normal respiratory effort, No retractions, No use of accessory muscles and clear to auscultation bilaterally AUSCULTATION: clear to auscultation bilaterally Cardio: COMMON NORMALS: regular rate, regular rhythm, S1 normal heart sound present and S2 normal heart sound present RATE: regular rate RHYTHM: regular rhythm HEART SOUNDS: S1 normal heart sound present and S2 normal heart sound present GI: COMMON NORMALS: Normal to inspection, nondistended, normoactive bowel sounds present and non-tender Extremity: COMMON NORMALS: no pedal edema Neuro: COMMON NORMALS: patient oriented x3 Psych: COMMON NORMALS: mental status grossly normal Discharge Data Studies Completed and Pending Completed Studies During Hospitalization Category Date Time Status XR chest 1V portable [id number] Stat Exams 01/06/24 10:02 Completed Pending at discharge Category Date Time Status Sputum Culture and Gram Stain Stat Lab 01/06/24 10:51 [place] [id number] Routine Ultrasound 01/06/24 15:22 Taken Radiology Impressions Chest X-Ray 01/06/24 10:02 IMPRESSION: 1. Pulmonary hyperinflation and chronic interstitial changes. No acute finding. Laboratory Results WBC 13.82 10^3/uL (3.29-11.43) H 01/07/24 05:45 RBC 4.30 10^6/uL (3.85-5.65) 01/07/24 05:45 Hgb 12.70 g/dL (11.27-16.99) 01/07/24 05:45 Hct 38.7 % (36-47) 01/07/24 05:45 MCV 90.0 fl (85-98) 01/07/24 05:45 MCH 29.5 pg (27-33) 01/07/24 05:45 MCHC 32.8 g/dL (30-55) 01/07/24 05:45 RDW 13.4 % (12.1-15.1) 01/07/24 05:45 Plt Count 287 10^3/cmm (157-399) 01/07/24 05:45 MPV 11.9 fL (7.4-10.4) H 01/07/24 05:45 Neut % (Auto) 83.0 % 01/07/24 05:45 Lymph % (Auto) 6.7 % 01/07/24 05:45 [place] % (Auto) 9.8 % 01/07/24 05:45 Eos % (Auto) 0.0 % 01/07/24 05:45 Baso % (Auto) 0.1 % 01/07/24 05:45 Neut # (Auto) 11.45 10^3/uL (1.8-7.7) H 01/07/24 05:45 Lymph # (Auto) 0.9 10^3/uL (0.8-4.8) 01/07/24 05:45 [place] # (Auto) 1.4 10^3/uL (0.2-0.9) H 01/07/24 05:45 Eos # (Auto) 0.0 10^3/uL (0.0-0.8) 01/07/24 05:45 Baso # (Auto) 0.0 10^3/uL (0.0-0.1) 01/07/24 05:45 Nucleated RBC % (auto) 0 % 01/07/24 05:45 Nucleated RBCs # 0.0 /100WBC 01/07/24 05:45 Specimen Type Arterial 01/06/24 10:20 Sample Site Radial, left 01/06/24 10:20 ABG pH 7.43 (7.35-7.45) 01/06/24 10:20 ABG pCO2 43.7 mmHg (35-45) 01/06/24 10:20 ABG pO2 61.9 mmHg (80.0-100.0) L 01/06/24 10:20 ABG HCO3 28.7 mmol/L (22-26) H 01/06/24 10:20 ABG O2 Saturation 91.9 01/06/24 10:20 ABG Base Excess 3.7 mmol/L (-2.0-2.0) H 01/06/24 10:20 Eliu Test Pos 01/06/24 10:20 A-a O2 Gradient 4.5 mmHg (5-10) L 01/06/24 10:20 Hematocrit 40.6 % (37-47) 01/06/24 10:20 Hgb O2 Saturation 89.6 % (95-100) L 01/06/24 10:20 Carboxyhemoglobin 1.5 %THgb (0.4-20.1) 01/06/24 10:20 Methemoglobin 1.1 % (0.4-1.5) 01/06/24 10:20 Total Hemoglobin 13.2 g/dL (12-16) 01/06/24 10:20 Sodium 137.0 mmol/L (131-143) 01/06/24 10:20 Potassium 3.7 mmol/L (3.5-5.0) 01/06/24 10:20 Glucose 132.0 mg/dL (70-115) H 01/06/24 10:20 Ionized Calcium 1.3 mmol/L (1.1-1.4) 01/06/24 10:20 O2 Delivery Device Nc 01/06/24 10:20 O2 Liters/Min 5.0 % 01/06/24 10:20 Wood Model Maker ID Cak 01/06/24 10:20 Sodium 138 mmol/L (136-145) 01/07/24 05:45 Potassium 4.1 mmol/L (3.5-5.1) 01/07/24 05:45 Chloride 97 mmol/L (98-107) L 01/07/24 05:45 Carbon Dioxide 30 mmol/L (22-29) H 01/07/24 05:45 Anion Gap 15.1 (5-19) 01/07/24 05:45 BUN 11 mg/dL (6-20) 01/07/24 05:45 Creatinine 0.5 mg/dL (0.5-0.9) 01/07/24 05:45 GFR Calculation 127.2 mL/min (90-130) 01/07/24 05:45 Glucose 133 mg/dL (65-115) H 01/07/24 05:45 Estimat Average Glucose 108 01/07/24 05:45 Hemoglobin A1c 5.4 % (4.0-6.0) 01/07/24 05:45 Calculated Osmolality 287 mOsm/kg (285-295) 01/07/24 05:45 Calcium 9.7 mg/dL (8.5-10.5) 01/07/24 05:45 Phosphorus 3.7 mg/dL (2.5-4.5) 01/07/24 05:45 Magnesium 1.8 mg/dL (1.7-2.3) 01/07/24 05:45 Total Bilirubin 0.5 mg/dL (0.15-1.2) 01/06/24 10:25 AST 16 U/L (0-32) 01/06/24 10:25 ALT 16 U/L (0-33) 01/06/24 10:25 Alkaline Phosphatase 90 U/L (35-105) 01/06/24 10:25 Troponin T Baseline 14 ng/L (0-10) H 01/06/24 10:25 Troponin T 120 Minute 14.31 ng/L (0-10) H 01/06/24 12:06 Delta Troponin T 0.31 ABS# (0-10) 01/06/24 12:06 Troponin T Hi Sens 6Hr 12.79 ng/L (0-10) H 01/06/24 16:45 Troponin T Hi Sens 6Hr Delta -1.21 ng/L (0-12) L 01/06/24 16:45 NT-Pro-B Natriuret Pep 574 pg/mL (0-125) H 01/07/24 05:45 Total Protein 7.4 g/dL (6.6-8.7) 01/06/24 10:25 Albumin 4.7 g/dL (3.5-5.2) 01/06/24 10:25 Globulin 2.7 g/dL (1.3-4.6) 01/06/24 10:25 25-OH Vitamin D Total 21 ng/mL (30-100) L 01/07/24 05:45 TSH 0.89 uIU/mL (0.27-4.20) 01/07/24 05:45 Urine Color Yellow (Yellow) 01/06/24 12:24 Urine Appearance Clear (CLEAR) 01/06/24 12:24 Urine pH 6.5 (5-7) 01/06/24 12:24 Ur Specific [place] 1.007 (1.005-1.030) 01/06/24 12:24 Urine Protein Trace (Negative) A 01/06/24 12:24 Urine Glucose (UA) Negative (Normal) 01/06/24 12:24 Urine Ketones Trace (Negative) 01/06/24 12:24 Urine Blood Negative (Negative) 01/06/24 12:24 Urine Nitrate Negative (Negative) 01/06/24 12:24 Urine Bilirubin Negative (Negative) 01/06/24 12:24 Urine Urobilinogen 0.2 mg/dL (Negative) 01/06/24 12:24 Ur Leukocyte Esterase Negative (Negative) 01/06/24 12:24 Urine RBC 0-2 /hpf (0-2) 01/06/24 12:24 Urine WBC 0-5 /hpf (0-5) 01/06/24 12:24 Ur Squamous Epith Cells 0-5 /hpf (0-5) 01/06/24 12:24 Amorphous Sediment Not Reportable 01/06/24 12:24 Urine Bacteria None seen /hpf (NONE) 01/06/24 12:24 Hyaline Casts 0-4 /lpf H 01/06/24 12:24 Vitals Last Vital Signs Temp 98.4 F 01/07/24 11:39 Pulse 100 01/07/24 11:39 Resp 15 01/07/24 11:39 BP 131/83 01/07/24 11:39 Pulse Ox 93 01/07/24 11:39 O2 Del Method Nasal Cannula 01/07/24 08:00 O2 Flow Rate 56 01/07/24 11:39 Discharge Plan Discharge Patient Disposition: Home Condition: Stable Prescriptions: New doxycycline monohydrate 100 mg Tablet 100 mg PO BID 5 Days Qty: 10 0RF prednisone 10 mg tablet See Rx Instructions .ROUTE .COMPLEX Qty: 90 0RF Rx Instructions: 6 tabs (60mg) a day for 5 days, 5tabs for 5 days, 4 tabs for 5 days, 3 tabs for 5 days, then resume chronic prednisone Continued metoprolol succinate 25 mg tablet extended release 24 hr 25 mg PO QAM Qty: 90 1RF (DME) TLSO See Rx Instructions .Route .MEDSUPPLY Qty: 1 0RF Rx Instructions: As directed cyclobenzaprine 10 mg tablet 10 mg PO TID 7 Days Qty: 21 0RF lidocaine [Lidoderm] 5 % adhesive patch,medicated 1 patch TOPICAL DAILY PRN (Reason: Pain) Rx Instructions: put patch on in the am and remove in the evening ipratropium-albuterol 0.5 mg-3 mg(2.5 mg base)/3 mL solution for nebulization 3 ml inhalation Q6H PRN (Reason: shortness of breath or wheezing) 90 Days Qty: 810 4RF furosemide 20 mg tablet 20 mg PO .every other day Qty: 90 3RF apixaban 5 mg tablet 5 mg PO BID Qty: 180 3RF isosorbide mononitrate 60 mg tablet extended release 24 hr 60 mg PO QAM Qty: 90 3RF Rx Instructions: take with 30mg isosorbide mon. to equal 90mg isosorbide mononitrate 30 mg tablet extended release 24 hr 30 mg PO QAM Qty: 90 3RF diltiazem HCl 30 mg tablet 90 mg PO DIRECTED Qty: 270 2RF Rx Instructions: Take 60mg (2 tabs) in AM and 30mg (1 tab) in PM Brovana 15 mcg/2 mL solution for nebulization 2 ml inhalation BID Qty: 360 3RF budesonide [Pulmicort] 0.5 mg/2 mL suspension for nebulization 0.5 mg inhalation BID Qty: 360 3RF nitroglycerin 0.4 mg tablet, sublingual See Rx Instructions .ROUTE .COMPLEX Qty: 25 1RF Dose Instruction: DISSOLVE 1 TABLET UNDER THE TONGUE EVERY 5 MINUTES NEEDED FOR CHEST PAIN Rx Instructions: DISSOLVE 1 TABLET UNDER THE TONGUE EVERY 5 MINUTES NEEDED FOR CHEST PAIN diazepam 5 mg tablet 5 mg PO BID PRN (Reason: anxiety) Qty: 2 0RF Rx Instructions: Take one tab one hour before procedure, take one tab at time of procedure Lipitor 10 mg tablet 10 mg PO .three times weekly ondansetron 8 mg tablet,disintegrating 8 mg PO QAM pantoprazole [Protonix] 40 mg tablet,delayed release (DR/EC) 40 mg PO QAM montelukast [Singulair] 10 mg tablet 10 mg PO QAM fluoxetine 20 mg capsule 60 mg PO QAM albuterol sulfate 90 mcg/actuation HFA aerosol inhaler 2 puff INHALATION Q6H PRN (Reason: Shortness Of Breath Or Wheezing) aripiprazole 2 mg tablet 2 mg PO QAM oxycodone 10 mg tablet 10 mg PO QID PRN (Reason: Pain) oxycodone [OxyContin] 30 mg tablet,oral only,ext.rel.12 hr 30 mg PO TID melatonin 10 mg Tablet 20 mg PO DAILY Metamucil 3.4 gram/5.4 gram Powder 1 tbsp PO DAILY PRN (Reason: Constipation) Rx Instructions: mix into at least 8 oz of water or juice before administering Held prednisone 10 mg tablet 20 mg PO DAILY Hold Instructions: Resume on 01/27/24. resume once steroid taper is completed Discharge Orders: Discharge Order (Routine); Ordered 01/07/24 Ordered By: David Mckeon Referrals: Ludin Schmitt MD [Primary Care Provider] - Discharge Diet: Cardiac Discharge Activity: Resume usual activity Patient Instructions: Opioid Safety Activity Restrictions/Additional Instructions: - Please take steroid taper as prescribed ? Please take doxycycline as prescribed ? Please follow-up with Dr. Miller Discharge Attestations Time Spent in Discharge Care*: greater than 30 min Quality Metrics Clinical Quality Measures [ No reported AMI, CVA or VTE this stay] Coding Level of Care Code 97277 Total time (in minutes) for Discharge: 45 Diagnoses Stage 4 very severe COPD by GOLD classification J44.9 Compression fracture of T7 vertebra with routine healing, subsequent encounter S22.060D Encounter type: subsequent encounter Fracture healing: with routine healing Thoracic vertebra fracture level: T7 Progressive pulmonary hypertension I27.20 Inappropriate sinus node tachycardia I47.11 Edema of left lower extremity R60.0 Chronic anticoagulation Z79.01 Other osteoporosis with current pathological fracture with routine healing, subsequent encounter M80.80XD Osteoporosis type: other Presence of current pathological fracture: with current pathological fracture Encounter type: subsequent encounter Fracture healing: with routine healing Chronic use of steroids Moderate protein-calorie malnutrition E44.0 Malnutrition type: protein-calorie malnutrition Protein-calorie malnutrition severity: moderate Chronic, continuous use of opioids F11.90 Dyslipidemia E78.5 Gastroesophageal reflux disease without esophagitis K21.9 Esophagitis presence: without esophagitis Depression with anxiety F41.8
== END 2024-01-07 13:17 | disposition home or self-care (01) ==
LOC: ER 12:23 → MEDSURG 14:22
PROVIDERS: Admitting Provider Hospitalist; Emergency Provider Family Medicine; PCP Internal Medicine; Visit Provider Family Medicine
DX: J44.1 Chronic obstructive pulmonary disease with (acute) exacerbation (principal); S22.060D Wedge compression fracture of T7-T8 vertebra, subsequent encounter for fracture with routine healing; I27.20 Pulmonary hypertension, unspecified; I47.11 Inappropriate sinus tachycardia, so stated; R60.0 Localized edema; Z79.01 Long term (current) use of anticoagulants; M80.80XD Other osteoporosis with current pathological fracture, unspecified site, subsequent encounter for fracture with routine healing; X58.XXXD Exposure to other specified factors, subsequent encounter; Y99.9 Unspecified external cause status; Z79.52 Long term (current) use of systemic steroids; E44.0 Moderate protein-calorie malnutrition; Z68.1 Body mass index [BMI] 19.9 or less, adult; F11.90 Opioid use, unspecified, uncomplicated; E78.5 Hyperlipidemia, unspecified; K21.9 Gastro-esophageal reflux disease without esophagitis; F41.8 Other specified anxiety disorders; Z99.81 Dependence on supplemental oxygen; Z86.718 Personal history of other venous thrombosis and embolism; Z87.891 Personal history of nicotine dependence
CPT/HCPCS: 36415; 36600; 71045; 72070; 80048; 80051; 80053; 81001; 82306; 82330; 82805; 83036; 83735; 83880; 84100; 84443; 84484; 85025; 87070; 87205; 93005; 93970; 94640; 96372; 96374; 97760; 99214; 99285; G0378; J1100; J1940; J7512; J7626; L0456; Q0162

== ENCOUNTER 2024-01-06 09:55 | Outpatient (CLI) | payer MEDICARE, OTHER, SELFPAY | END 2024-01-06 09:56 | disposition home or self-care (01) | LOC: SPT 09:56 | PROVIDERS: PCP Internal Medicine; Visit Provider Orthopaedic Surgery | DX: Z46.89 Encounter for fitting and adjustment of other specified devices (principal); S22.000D Wedge compression fracture of unspecified thoracic vertebra, subsequent encounter for fracture with routine healing; X58.XXXD Exposure to other specified factors, subsequent encounter | CPT/HCPCS: 97760; L0456 ==

== ENCOUNTER 2024-01-09 13:55 | Outpatient (CLI) | payer MEDICARE, OTHER, SELFPAY ==
--- NOTE | 2024-01-09 14:30 | MR_ITS ---
WS: [id number] MRI THORACIC SPINE noncontrast HISTORY: compression fx COMPARISON: 01/08/2021 TECHNIQUE: Multiplanar sequences are performed in sagittal and axial planes. Extremely difficult MRI of the thoracic spine due to patient's marked kyphosis. Marked increase in the cervical lordosis and thoracic kyphosis. There are multiple thoracic spine com pression fractures. Majority of these are new since 2020. New since the prior MRI of 2020 are fractures involving T7, T10, and T12. T11 compression fracture w as present on the prior exam. L2 compression fracture contains vertebroplasty. T7: Severe vertebral plana fracture with 4.4 mm of retropulsion. Mild encroachment upon the central c anal and displacement but no high-grade stenosis. At least mild foraminal stenosis. There is some mar row edema suggesting this is at least a subacute fracture. Marrow edema extends into the posterior el ements. T10: Severe vertebral plana compression fracture with edema and very minimal retropulsion. T11: Chronic fracture with a stable LEFT paracentral disc osteophyte. Mild central stenosis. Similar to the prior study. T12: No definite marrow edema is noted at T12. This is a severe compression fracture with 7 mm retrop ulsion of the posterior superior endplate encroaching upon the ventral thecal sac. There is slight de formity of the ventral cord. MR/MR thoracic spin wo con* [id number] IMPRESSION: 1. New osteoporotic compression fractures are identified since the prior MRI o f 01/08/2021. 2. T7 severe vertebral plana fracture with 4.4 mm of retropulsion. Subacute fr acture suspected. There is still some edema present in the vertebral body and p osterior elements. 3. T10: Severe, new vertebral plana compression fracture with marrow edema. 4. T12: There is no definite marrow edema noted at T12 but there is a severe c ompression fracture with 7 mm retropulsion of the posterior superior endplate. This is a new fracture since 2020. Endplate encroachment upon the ventral theca l sac with at least mild central and bilateral subarticular recess encroachment . 5. Chronic T11 compression fracture. 6. L2 remote fracture with vertebroplasty.
== END 2024-01-09 13:56 | disposition home or self-care (01) ==
LOC: RAD 13:56
PROVIDERS: PCP Internal Medicine; Visit Provider Orthopaedic Surgery
DX: S22.069A Unspecified fracture of T7-T8 vertebra, initial encounter for closed fracture (principal); S22.070A Wedge compression fracture of T9-T10 vertebra, initial encounter for closed fracture; S22.080A Wedge compression fracture of T11-T12 vertebra, initial encounter for closed fracture; M25.78 Osteophyte, vertebrae; M40.204 Unspecified kyphosis, thoracic region; X58.XXXA Exposure to other specified factors, initial encounter
CPT/HCPCS: 72146

== ENCOUNTER → 2024-01-13 13:38 | Outpatient (BNVA) | payer MEDICARE, OTHER, SELFPAY | PROVIDERS: PCP Internal Medicine; Visit Provider Orthopaedic Surgery | DX: Z09 Encounter for follow-up examination after completed treatment for conditions other than malignant neoplasm (principal) | CPT/HCPCS: 99214 ==

== ENCOUNTER 2024-01-14 16:39 | Outpatient (CLI) | payer MEDICARE, OTHER, SELFPAY ==
--- NOTE | 2024-01-14 17:00 | MR_ITS ---
WS: [id number] MRI LUMBAR SPINE NONCONTRAST TECHNIQUE: Sagittal T1, T2 and STIR imaging. Axial T1 and T2 imaging. CLINICAL INFORMATION: back pain COMPARISON: MRI 2020 FINDINGS: Lumbar curve. Prior kyphoplasty changes L2. Mild chronic chronic compression superior endplate L3 Anterior wedging with compression at T10-T12. Chronic near vertebral plana at T12. Loss of approximat liz 50% vertebral body height at T11 appears chronic. Severe compression at T10 with vertebral plana anteriorly and visualized fracture cleft. Associated e tomy T10 vertebral body L1-L2: Mild annular bulging. Mild facet arthropathy. Spinal canal and foramen are patent. L2-L3: Mild disc bulging with central disc protrusion. Moderate central canal stenosis. Impingement o f the subarticular recess bilaterally. Foramen are patent. L3-L4: Mild disc bulging with mild central canal stenosis. Impingement subarticular recess. Mild face t arthropathy. Foramen are patent. L4-L5: Mild annular bulging. Impingement on the traversing L5 nerve roots bilaterally. Mild LEFT and no significant RIGHT foraminal narrowing. Mild facet arthropathy. L5-S1: Slight anterolisthesis L5 on S1. Mild annular bulging. Mild facet arthropathy. Foramen are pat ent. Visualized pelvic bony structures: Normal. Paravertebral soft tissues: Normal. MR/MR lumbar spine wo con* [id number] IMPRESSION: 1. Chronic compression fractures T11 and T12 and L2. Prior kyphoplasty at L2. 2. Chronic compression superior endplate L3. 3. Vertebral plana at T10 with associated edema compatible with recent urbano shakir similar to the recent thoracic spine MRI. 4. Retropulsion with disc bulging at T11-T12 is unchanged with mild to moderat e central canal stenosis. 5. Moderate central canal stenosis L2-3 due to disc bulging with facet arthrop athy and ligamentum flavum hypertrophy. Impingement on the subarticular recess. 6. Mild central canal stenosis L3-4. 7. Vertebral plana at T7 described on the recent thoracic spine MRI visualized today on the oil gauger imaging.
== END 2024-01-14 16:40 | disposition home or self-care (01) ==
LOC: RAD 16:39
PROVIDERS: PCP Internal Medicine; Visit Provider Orthopaedic Surgery
DX: Z01.818 Encounter for other preprocedural examination (principal); M99.63 Osseous and subluxation stenosis of intervertebral foramina of lumbar region; M54.16 Radiculopathy, lumbar region
CPT/HCPCS: 72148; 85025

== ENCOUNTER → 2024-01-15 10:12 | Outpatient (BNVA) | payer MEDICARE, OTHER, SELFPAY | PROVIDERS: PCP Internal Medicine; Visit Provider Orthopaedic Surgery | DX: Z09 Encounter for follow-up examination after completed treatment for conditions other than malignant neoplasm (principal) | CPT/HCPCS: 99214 ==

== ENCOUNTER 2024-02-05 13:03 | Inpatient (IN) | payer MEDICARE, OTHER, SELFPAY ==
[2024-02-05] VITALS (16 sets, daily range): BP systolic 98–159; BP diastolic 65–94; PULSE 87–115; RESP 16–22; TEMP 36.4–36.7; O2SAT 90–100; BMI 13.5
--- NOTE | 2024-02-05 13:11 | XR_ITS ---
WS: [id number] Exam: XR chest 1V portable [id number] Date/Time of Exam: 02/05/2024 1:18 PM Reason For Exam: Shortness of breath Comparison with the latest exam 01/06/2024. The chest is rotated which accentuates the RIGHT hilum. This is unchanged in appearance. There is hyp erinflation. There are chronic interstitial changes. The main pulmonary arteries are enlarged which m ay indicate pulmonary hypertension. No pleural effusions. Old bilateral rib fractures. Areas of plaqu e atelectasis in the lower lung zones. XR/XR chest 1V portable [id number] IMPRESSION: 1. No acute infiltrates are identified. Extensive chronic changes and pulmonary hyperinflation. 2. Enlarged main pulmonary artery suggesting pulmonary hypertension. There is a lso rotation of the chest which accentuates the right main pulmonary artery. Th e appearance is unchanged.
--- NOTE | 2024-02-05 13:16 | ED_ITS ---
HPI - SOB/Dyspnea 2 General: Chief Complaint: Shortness of Breath/Dyspnea Stated Complaint: SOB, incoherent, fatigue Time Seen by Provider: 02/05/24 13:08 History of Present Illness: HPI Narrative: 58-year-old female with a history of end -stage COPD, chronic hypoxemic respiratory failure on 5 L nasal cannula at all times, alpha-1 antitrypsin, severe scoliosis, pulmonary hypertension, hypertension and hyperlipidemia who presents the emergency room with worsening shortness of breath, increased oxygen requirements and hallucinations. She says she thinks her CO2 was up. No known fevers. No chest pain. No new cough. She says she is having to use 6 to 7 L nasal cannula. Related Data Home Medications Medication Instructions Recorded Confirmed atorvastatin 10 mg tablet (Lipitor) 10 mg PO .three times weekly 03/29/22 02/05/24 lidocaine 5 % topical patch 1 patch topical DAILY PRN Pain 03/29/22 02/05/24 (Lidoderm) fluoxetine 20 mg capsule 60 mg PO QAM 12/27/22 02/05/24 montelukast 10 mg tablet 10 mg PO QAM 12/27/22 02/05/24 (Singulair) ondansetron 8 mg disintegrating 8 mg PO QAM 12/27/22 02/05/24 tablet pantoprazole 40 mg tablet,delayed 40 mg PO QAM 12/27/22 02/05/24 release (Protonix) aripiprazole 2 mg tablet 2 mg PO QAM 01/06/24 02/05/24 melatonin 10 mg tablet 20 mg PO DAILY 01/06/24 02/05/24 oxycodone 10 mg tablet 10 mg PO QID PRN Pain 01/06/24 02/05/24 oxycodone 30 mg tablet,crush 30 mg PO TID 01/06/24 02/05/24 resistant,extended release 12 hr (OxyContin) prednisone 10 mg tablet 20 mg PO DAILY flare up 01/06/24 02/05/24 psyllium husk 3.4 gram/5.4 gram 1 tbsp PO DAILY PRN Constipation 01/06/24 02/05/24 oral powder (Metamucil) Previous Rx's Medication Instructions Recorded ipratropium 0.5 mg-albuterol 3 mg 3 ml inhalation Q6H PRN shortness 08/17/21 (2.5 mg base)/3 mL nebulization of breath or wheezing 90 days #810 soln mL furosemide 20 mg tablet 20 mg PO .every other day #90 tabs 01/14/22 apixaban 5 mg tablet 5 mg PO BID #180 tabs 12/12/22 isosorbide mononitrate 60 mg 60 mg PO QAM #90 tabs 03/07/23 tablet,extended release 24 hr isosorbide mononitrate 30 mg 30 mg PO QAM #90 tabs 04/17/23 tablet,extended release 24 hr diltiazem HCl 30 mg tablet 90 mg (3 x 30 mg) PO DIRECTED 06/17/23 #270 tabs arformoterol 15 mcg/2 mL solution 2 ml inhalation BID #360 mL 08/27/23 for nebulization (Brovana) budesonide 0.5 mg/2 mL suspension 0.5 mg (2 mL) inhalation BID #360 08/27/23 for nebulization (Pulmicort) mL metoprolol succinate 25 mg 25 mg PO QAM #90 tabs 10/01/23 tablet,extended release 24 hr nitroglycerin 0.4 mg sublingual See Rx Instructions .Route 12/03/23 tablet .COMPLEX #25 tabs TLSO #1 ea 01/06/24 diazepam 5 mg tablet 5 mg PO BID PRN anxiety #2 tabs 01/12/24 Mobility scooter #1 ea 01/13/24 cyclobenzaprine 10 mg tablet 10 mg PO TID 7 days #21 tabs 02/02/24 Allergies Allergy/AdvReac Type Severity Reaction Status Date / Time tramadol AdvReac Severe ADR-Shakine Verified 01/14/24 08:45 ss Review of Systems 2 Narrative: Constitutional symptoms: Negative except as documented in HPI. Skin symptoms: Negative except as documented in HPI. Eye symptoms: Negative except as documented in HPI. ENMT symptoms: Negative except as documented in HPI. Respiratory symptoms: Negative except as documented in HPI. Cardiovascular symptoms: Negative except as documented in HPI. Gastrointestinal symptoms: Negative except as documented in HPI. Genitourinary symptoms: Negative except as documented in HPI. Musculoskeletal symptoms: Negative except as documented in HPI. Neurologic symptoms: Negative except as documented in HPI. Psychiatric symptoms: Negative except as documented in HPI. Endocrine symptoms: Negative except as documented in HPI. PFSH ED 2 PFSH: Medical History GERD (gastroesophageal reflux disease) Dyslipidemia History of DVT (deep vein thrombosis) 02/2021 left peroneal vein History of PFTs 11/2021 severe airflow obstruction, severely reduced gas transfer, air trapping, near significant post-bronchodilator response Osteoporosis DEXA scan 12/2021 left hip T -3.4, Z -2.3; right hip T -3.0, Z -1.9 History of cardiovascular stress test 03/2021 no lexiscan induced ekg changes or symptoms, normal myocardial perfusion, TID index 1.4 History of echocardiogram 12/2021 EF 70%, grade 1 diastolic dysfunction, moderate pulmonary hypertension with PAP 47mmHg History of Holter monitoring 06/2022 baseline sinus, less than 1% supraventricular ectopic beats, no atrial arrhythmias Leukocytosis Community acquired pneumonia Tachycardia with heart rate 100-120 beats per minute Thoracic compression fracture Pulmonary cachexia due to COPD Pulmonary hypertension Unexplained weight loss Acute sinusitis Chronic pain Chronic respiratory failure with hypoxia Pulmonary embolus 2017 H/O Prinzmetal angina Panlobular emphysema Nicotine dependence, unspecified, uncomplicated 31 pack year history, quit in 2021 Anxiety Cough with hemoptysis Low back pain Reactive depression Intervertebral disc disorders with radiculopathy, lumbosacral region COPD (chronic obstructive pulmonary disease) Chronic right heart failure Heterozygous alpha 1-antitrypsin deficiency Surgical History History of cardiac catheterization 02/2021 normal coronaries History of kyphoplasty 02/2021 L2 S/P lumbar discectomy Hx of tubal ligation History of esophagogastroduodenoscopy (EGD) 02/19/2016- HITAL HERNIA- ESOPHAGITIS- AND ESOPHAGEAL MONILIASIS Family History Father Myocardial infarct Stroke Lung disease Hypertension Brother Myocardial infarct Sister Anemia Diabetes Lung disease Hypertension Ugrhu-[id number] deficiency Mother Diabetes Lung disease Chkno-0-kzrqsniwsmz deficiency Social History Smoking and tobacco/nicotine status: never used tobacco/nicotine Quit status (tobacco/nicotine): has quit using Year quit tobacco: 2021 Former quit date comment: Hx of 1 ppd X 31 years Second hand smoke exposure: Yes Alcohol intake: current Alcohol intake frequency: holidays/special occasions only Substance/Drug Use: never Lives independently: Yes Household members: spouse Housing: House Marital status: Current occupational status: disabled Do you think of yourself as: Straight/Heterosexual Current gender identity: Female Physical Exam 2 Narrative: EXAM NARRATIVE: General: Alert, moderate distress. Skin: Warm, dry. Head: Normocephalic, atraumatic. Neck: Supple, trachea midline. Eye: Extraocular movements are intact. Ears, nose, mouth and throat: Oral mucosa moist. Cardiovascular: Regular rate and rhythm, Normal peripheral perfusion. Respiratory: coarse, scattered wheeze, moderate increased wob. tachypnea, prolonged expiratory phase. breath sounds are equal, Symmetrical chest wall expansion. Gastrointestinal: Soft, Nontender, Non distended, Normal bowel sounds. Musculoskeletal: Normal ROM, no deformity. Neurological: Alert and oriented to person, place, time, and situation, No focal neurological deficit observed. Psychiatric: Cooperative, appropriate mood & affect. Course 2 Vital Signs: Vital signs: Vital Signs Temperature 98.0 F 02/05/24 13:08 Pulse Rate 104 H 02/05/24 14:56 Respiratory Rate 18 02/05/24 14:11 Blood Pressure 113/87 02/05/24 14:56 Pulse Oximetry 100 02/05/24 14:56 Oxygen Delivery Me thod BiPAP 02/05/24 14:46 Oxygen Flow Rate 5 02/05/24 14:11 Fraction of Inspir ed Oxygen 40 02/05/24 14:32 MDM - SOB/Dyspnea Medical Decision Making Differential diagnosis for patient with shortness of breath includes but is not limited to and based on the above HPI, review of systems and physical exam: Pneumonia. Bronchitis. Asthma or COPD with acute exacerbation. Acute coronary syndrome / DC. Pulmonary embolism. Anxiety. Congestive heart failure. Viral infections including influenza and Covid-19. Atrial fibrillation. Anxiety. Pleural effusion. Pneumothorax. Orders placed to evaluate differential diagnosis based on the above differential, HPI and physical exam EKG: Time 1330. Rate 112. Sinus tachycardia, nonspecific ST-T changes, no ectopy, normal [place] & QRS intervals, This was reviewed and interpreted by myself the ER physician at 1335 Chest x-ray: Chronic changes, hyperinflation, enlarged pulmonary artery. No acute infiltrates. This was reviewed and interpreted by myself the emergency room physician. I also reviewed the radiology report. Lab Review: Laboratory results were reviewed and interpreted by myself the emergency room physician. Leukocytosis with white count 19,000. Hemoglobin is 13. BUN/creatinine are normal at 10 and 0.7. Patient's CO2 has continually been elevating over the last few visits. So she is compensating for CO2 retention. I reviewed the patient's medical record. Consultation: I spoke with Dr. Mckeon who agrees to admission. Assessment and plan: COPD with acute exacerbation Acute on chronic hypoxemic respiratory failure Hypercapnic respiratory failure ?BiPAP, albuterol, DuoNeb, Solu-Medrol -I discussed the patient with the hospitalist on-call who is admitting the patient. - Discussed findings and plan with patient. Answered any questions. - All laboratory values were reviewed and interpreted personally by myself, the ER physician - All imaging was reviewed and interpreted personally by myself, the ER physician. - Evaluation and treatment of this problem were appropriate in the emergency setting Lab Data 02/05/24 13:18 02/05/24 13:18 Labs/Radiology: Radiology Impressions Chest X-Ray 02/05/24 13:11 IMPRESSION: 1. No acute infiltrates are identified. Extensive chronic changes and pulmonary hyperinflation. 2. Enlarged main pulmonary artery suggesting pulmonary hypertension. There is also rotation of the chest which accentuates the right main pulmonary artery. The appearance is unchanged. Laboratory Results WBC 19.43 10^3/uL (3.29-11.43) H 02/05/24 13:18 RBC 4.59 10^6/uL (3.85-5.65) 02/05/24 13:18 Hgb 13.60 g/dL (11.27-16.99) 02/05/24 13:18 Hct 42.7 % (36-47) 02/05/24 13:18 MCV 93.0 fl (85-98) 02/05/24 13:18 MCH 29.6 pg (27-33) 02/05/24 13:18 MCHC 31.9 g/dL (30-55) 02/05/24 13:18 RDW 13.6 % (12.1-15.1) 02/05/24 13:18 Plt Count 289 10^3/cmm (157-399) 02/05/24 13:18 MPV 11.3 fL (7.4-10.4) H 02/05/24 13:18 Neut % (Auto) 88.3 % 02/05/24 13:18 Lymph % (Auto) 5.8 % 02/05/24 13:18 [place] % (Auto) 4.6 % 02/05/24 13:18 Eos % (Auto) 0.3 % 02/05/24 13:18 Baso % (Auto) 0.2 % 02/05/24 13:18 Neut # (Auto) 17.15 10^3/uL (1.8-7.7) H 02/05/24 13:18 Lymph # (Auto) 1.1 10^3/uL (0.8-4.8) 02/05/24 13:18 [place] # (Auto) 0.9 10^3/uL (0.2-0.9) 02/05/24 13:18 Eos # (Auto) 0.1 10^3/uL (0.0-0.8) 02/05/24 13:18 Baso # (Auto) 0.0 10^3/uL (0.0-0.1) 02/05/24 13:18 Nucleated RBC % (auto) 0 % 02/05/24 13:18 Nucleated RBCs # 0.0 /100WBC 02/05/24 13:18 Specimen Type Arterial 02/05/24 13:17 Sample Site Radial, left 02/05/24 13:17 ABG pH 7.44 (7.35-7.45) 02/05/24 13:17 ABG pCO2 54.5 mmHg (35-45) H 02/05/24 13:17 ABG pO2 60.6 mmHg (80.0-100.0) L 02/05/24 13:17 ABG HCO3 37.3 mmol/L (22-26) H 02/05/24 13:17 ABG O2 Saturation 92.5 02/05/24 13:17 ABG Base Excess 11.2 mmol/L (-2.0-2.0) H 02/05/24 13:17 Eliu Test Pos 02/05/24 13:17 A-a O2 Gradient 3.0 mmHg (5-10) L 02/05/24 13:17 Hematocrit 40.1 % (37-47) 02/05/24 13:17 Hgb O2 Saturation 89.9 % (95-100) L 02/05/24 13:17 Carboxyhemoglobin 1.7 %THgb (0.4-20.1) 02/05/24 13:17 Methemoglobin 1.0 % (0.4-1.5) 02/05/24 13:17 Total Hemoglobin 13.1 g/dL (12-16) 02/05/24 13:17 Sodium 137.0 mmol/L (131-143) 02/05/24 13:17 Potassium 3.8 mmol/L (3.5-5.0) 02/05/24 13:17 Glucose 122.0 mg/dL (70-115) H 02/05/24 13:17 Ionized Calcium 1.1 mmol/L (1.1-1.4) 02/05/24 13:17 O2 Delivery Device Nc 02/05/24 13:17 O2 Liters/Min 5.0 % 02/05/24 13:17 [employer]visor [employer] [place] 02/05/24 13:17 Sodium 139 mmol/L (136-145) 02/05/24 13:18 Potassium 4.6 mmol/L (3.5-5.1) 02/05/24 13:18 Chloride 91 mmol/L (98-107) L 02/05/24 13:18 Carbon Dioxide 35 mmol/L (22-29) H 02/05/24 13:18 Anion Gap 17.6 (5-19) 02/05/24 13:18 BUN 10 mg/dL (6-20) 02/05/24 13:18 Creatinine 0.7 mg/dL (0.5-0.9) 02/05/24 13:18 GFR Calculation 86.2 mL/min (90-130) L 02/05/24 13:18 Glucose 115 mg/dL (65-115) 02/05/24 13:18 Calculated Osmolality 288 mOsm/kg (285-295) 02/05/24 13:18 Calcium 9.2 mg/dL (8.5-10.5) 02/05/24 13:18 Total Bilirubin 0.5 mg/dL (0.15-1.2) 02/05/24 13:18 AST 22 U/L (0-32) 02/05/24 13:18 ALT 25 U/L (0-33) 02/05/24 13:18 Alkaline Phosphatase 182 U/L (35-105) H 02/05/24 13:18 Total Protein 6.7 g/dL (6.6-8.7) 02/05/24 13:18 Albumin 4.3 g/dL (3.5-5.2) 02/05/24 13:18 Globulin 2.4 g/dL (1.3-4.6) 02/05/24 13:18 Amorphous Sediment Not Reportable 02/05/24 14:38 All radiology interpretation(s) finalized by discharge Discharge Plan Discharge Patient Disposition: Admitted As Inpatient Admit Provider: David Mckeon Clinical Impression: COPD with acute exacerbation Condition: Stable Coding Level of Care Code ED Slip Cover Cutter for Elizabeth Solorzano
[2024-02-05 13:27] LABS: Basophils % 0.2 %; Eosinophils # 0.1 10^3/uL (0.0-0.8); Eosinophils % 0.3 %; Hematocrit 42.7 % (36-47); Lymphocytes # 1.1 10^3/uL (0.8-4.8); Lymphocytes % 5.8 %; Mean Corpuscular HGB Conc 31.9 g/dL (30-55); Mean Corpuscular Hemoglobin 29.6 pg (27-33); Mean Platelet Volume 11.3 fL (7.4-10.4); Monocytes # 0.9 10^3/uL (0.2-0.9); Monocytes % 4.6 %; Neutrophils # 17.15 10^3/uL (1.8-7.7); Neutrophils % 88.3 %; Nucleated Red Blood Cells % 0 %; Platelet Count 289 10^3/cmm (157-399); Red Blood Count 4.59 10^6/uL (3.85-5.65); Red Cell Distribution Width 13.6 % (12.1-15.1); White Blood Count 19.43 10^3/uL (3.29-11.43)
[2024-02-05 13:28] LABS: ABG PCO2 54.5 mmHg (35-45); ABG PH Result 7.44 (7.35-7.45); Arterial Blood Gas Hematocrit 40.1 % (37-47); Base Excess ABG 11.2 mmol/L (-2.0-2.0); Blood Gas Allen Test Pos; Blood Gas Operator Identificat WALCI; Blood Gas Sample Site Radial, left; Blood Gas Sample Type Arterial; Carboxyhemoglobin 1.7 %THgb (0.4-20.1); HCO3 ABG 37.3 mmol/L (22-26); HGB O2 Sat 89.9 % (95-100); Ionized Calcium Level - ABG 1.1 mmol/L (1.1-1.4); Oxygen Device NC; Oxygen Saturation ABG 92.5; PO2 ABG 60.6 mmHg (80.0-100.0); Potassium Level - ABG 3.8 mmol/L (3.5-5.0); Total Hemoglobin 13.1 g/dL (12-16)
--- NOTE | 2024-02-05 13:30 | ECG_ITS ---
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 Measurements Intervals [place] Rate: 112 P: 67 MT: 123 QRS: 82 QRSD: 87 T: 85 QT: 345 QTc: 473 Interpretive Statements SINUS TACHYCARDIA POSSIBLE ANTERIOR MYOCARDIAL INFARCTION , OF INDETERMINATE AGE [30 ms Q WAVE IN V3/V4, OR R < 0.2 mV IN V4] Compared to ECG 01/06/2024 16:12:09 No significant changes Electronically Signed On 02-07-2024 10:29:40 AUDIO VISUAL ENGINEER by Junior Gaytan M.D. [email or web address]
[2024-02-05 13:44] LABS: Alanine Aminotransferase 25 U/L (0-33); Albumin Level 4.3 g/dL (3.5-5.2); Alkaline Phosphatase 182 U/L (35-105); Anion Gap 17.6 (5-19); Aspartate Amino Transferase 22 U/L (0-32); Blood Urea Nitrogen 10 mg/dL (6-20); Calcium 9.2 mg/dL (8.5-10.5); Carbon Dioxide 35 mmol/L (22-29); Chloride 91 mmol/L (98-107); Creatinine Clr Calc Pharmacy 50.1605; Globulin 2.4 g/dL (1.3-4.6); Glomerular Filtration Rate 86.2 mL/min (90-130); Glucose 115 mg/dL (65-115); Osmolality Calculated 288 mOsm/kg (285-295); Potassium 4.6 mmol/L (3.5-5.1); Sodium 139 mmol/L (136-145); Total Bilirubin 0.5 mg/dL (0.15-1.2); Total Protein 6.7 g/dL (6.6-8.7)
[2024-02-05] MEDS: albuterol 2.5 mg/3 mL Neb INHALATION ×2 (14:16→20:23)
[2024-02-05] MEDS: ipratropium-albuterol 3 mL Neb INHALATION (14:16)
[2024-02-05] MEDS: methylPREDNISolone sod succ 125 mg/2 mL INJ IVP (14:17)
[2024-02-05 14:58] LABS: Bilirubin Urine Negative (Negative); Blood Urine Negative (Negative); Glucose Urine UA Negative (Normal); Ketones Urine Trace (Negative); Leukocyte Esterase Urine Trace (Negative); Nitrate Urine Negative (Negative); Protein Urine 2+ (Negative); Specific Gravity, Urine 1.018 (1.005-1.030); Urine Appearance Cloudy (CLEAR); Urine Color Dark Yellow (Yellow)
[2024-02-05 15:00] LABS: Bacteria Urine None Seen /hpf; Hyaline Casts Urine 3.71 /lpf; Squamous Epithelial Cell Urine 0-5 /hpf (0-5); WBC Urine 0-5 /hpf (0-5)
--- NOTE | 2024-02-05 15:10 | P.HP_ITS ---
Providers/Chief Complaint 2 Admitting Physician: David Mckeon MD Primary Care Provider: Ludin Schmitt MD Chief Complaint: SOB, incoherent, fatigue History of Present Illness Elsy Soto is a 58 year old female with a past medical history of stage IV COPD, chronically on 5 L, history of DVT, history of osteoporosis, GERD, dyslipidemia, history of CHF, history of severe scoliosis, BMI 13.6, who presents to [facility] for shortness of breath, cough. Patient reports that she has been short of breath for the last few days, with nonproductive cough, no fevers, no chills, no nausea, no vomiting, no lightheadedness, no dizziness, reports shortness of breath with exertion Review of Systems 2 Const: Reports: fatigue and malaise; Denies: fever(s) or chills Resp: Reports: dyspnea GI: Denies: abdominal pain Neuro: Denies: headache(s) Medications/Allergies Home Medications Medication Instructions Recorded Confirmed Last Taken Type ipratropium 0.5 mg-albuterol 3 mg 3 ml inhalation Q6H PRN shortness 08/17/21 02/05/24 02/05/24 Rx (2.5 mg base)/3 mL nebulization of breath or wheezing 90 days #810 soln mL furosemide 20 mg tablet 20 mg PO .every other day #90 tabs 01/14/22 02/05/24 02/05/24 Rx atorvastatin 10 mg tablet (Lipitor) 10 mg PO .three times weekly 03/29/22 02/05/24 02/05/24 History lidocaine 5 % topical patch 1 patch topical DAILY PRN Pain 03/29/22 02/05/24 02/05/24 History (Lidoderm) apixaban 5 mg tablet 5 mg PO BID #180 tabs 12/12/22 02/05/24 02/05/24 Rx fluoxetine 20 mg capsule 60 mg PO QAM 12/27/22 02/05/24 02/05/24 History montelukast 10 mg tablet 10 mg PO QAM 12/27/22 02/05/24 02/05/24 History (Singulair) ondansetron 8 mg disintegrating 8 mg PO QAM 12/27/22 02/05/24 01/06/24 History tablet pantoprazole 40 mg tablet,delayed 40 mg PO QAM 12/27/22 02/05/24 02/05/24 History release (Protonix) isosorbide mononitrate 60 mg 60 mg PO QAM #90 tabs 03/07/23 02/05/24 02/05/24 Rx tablet,extended release 24 hr isosorbide mononitrate 30 mg 30 mg PO QAM #90 tabs 04/17/23 02/05/24 02/05/24 Rx tablet,extended release 24 hr diltiazem HCl 30 mg tablet 90 mg (3 x 30 mg) PO DIRECTED 06/17/23 02/05/24 02/05/24 Rx #270 tabs arformoterol 15 mcg/2 mL solution 2 ml inhalation BID #360 mL 08/27/23 02/05/24 02/05/24 Rx for nebulization (Brovana) budesonide 0.5 mg/2 mL suspension 0.5 mg (2 mL) inhalation BID #360 08/27/23 02/05/24 02/05/24 Rx for nebulization (Pulmicort) mL metoprolol succinate 25 mg 25 mg PO QAM #90 tabs 10/01/23 02/05/24 02/05/24 Rx tablet,extended release 24 hr nitroglycerin 0.4 mg sublingual See Rx Instructions .Route 12/03/23 02/05/24 Unknown Rx tablet .COMPLEX #25 tabs TLSO #1 ea 01/06/24 02/05/24 Unknown Rx aripiprazole 2 mg tablet 2 mg PO QAM 01/06/24 02/05/24 02/05/24 History melatonin 10 mg tablet 20 mg PO DAILY 01/06/24 02/05/24 02/05/24 History oxycodone 10 mg tablet 10 mg PO QID PRN Pain 01/06/24 02/05/24 02/05/24 History oxycodone 30 mg tablet,crush 30 mg PO TID 01/06/24 02/05/24 02/05/24 History resistant,extended release 12 hr (OxyContin) prednisone 10 mg tablet 20 mg PO DAILY flare up 01/06/24 02/05/24 02/05/24 History psyllium husk 3.4 gram/5.4 gram 1 tbsp PO DAILY PRN Constipation 01/06/24 02/05/24 Unknown History oral powder (Metamucil) diazepam 5 mg tablet 5 mg PO BID PRN anxiety #2 tabs 01/12/24 02/05/24 02/05/24 Rx Mobility scooter #1 ea 01/13/24 02/05/24 Unknown Rx cyclobenzaprine 10 mg tablet 10 mg PO TID 7 days #21 tabs 02/02/24 02/05/24 02/05/24 Rx Allergies Allergy/AdvReac Type Severity Reaction Status Date / Time tramadol AdvReac Severe ADR-Shakine Verified 01/14/24 08:45 ss PFSH Acute 2 PFSH: Medical History GERD (gastroesophageal reflux disease) Dyslipidemia History of DVT (deep vein thrombosis) 02/2021 left peroneal vein History of PFTs 11/2021 severe airflow obstruction, severely reduced gas transfer, air trapping, near significant post-bronchodilator response Osteoporosis DEXA scan 12/2021 left hip T -3.4, Z -2.3; right hip T -3.0, Z -1.9 History of cardiovascular stress test 03/2021 no lexiscan induced ekg changes or symptoms, normal myocardial perfusion, TID index 1.4 History of echocardiogram 12/2021 EF 70%, grade 1 diastolic dysfunction, moderate pulmonary hypertension with PAP 47mmHg History of Holter monitoring 06/2022 baseline sinus, less than 1% supraventricular ectopic beats, no atrial arrhythmias Leukocytosis Community acquired pneumonia Tachycardia with heart rate 100-120 beats per minute Thoracic compression fracture Pulmonary cachexia due to COPD Pulmonary hypertension Unexplained weight loss Acute sinusitis Chronic pain Chronic respiratory failure with hypoxia Pulmonary embolus 2017 H/O Prinzmetal angina Panlobular emphysema Nicotine dependence, unspecified, uncomplicated 31 pack year history, quit in 2021 Anxiety Cough with hemoptysis Low back pain Reactive depression Intervertebral disc disorders with radiculopathy, lumbosacral region COPD (chronic obstructive pulmonary disease) Chronic right heart failure Heterozygous alpha 1-antitrypsin deficiency Surgical History History of cardiac catheterization 02/2021 normal coronaries History of kyphoplasty 02/2021 L2 S/P lumbar discectomy Hx of tubal ligation History of esophagogastroduodenoscopy (EGD) 02/19/2016- HITAL HERNIA- ESOPHAGITIS- AND ESOPHAGEAL MONILIASIS Family History Father Myocardial infarct Stroke Lung disease Hypertension Brother Myocardial infarct Sister Anemia Diabetes Lung disease Hypertension Kwksd-1-skcjepmvluu deficiency Mother Diabetes Lung disease Onjjj-5-gjoawtqumhg deficiency Social History Smoking and tobacco/nicotine status: never used tobacco/nicotine Quit status (tobacco/nicotine): has quit using Year quit tobacco: 2021 Former quit date comment: Hx of 1 ppd X 31 years Second hand smoke exposure: Yes Alcohol intake: current Alcohol intake frequency: holidays/special occasions only Substance/Drug Use: never Lives independently: Yes Household members: spouse Housing: House Marital status: Current occupational status: disabled Do you think of yourself as: Straight/Heterosexual Current gender identity: Female Vitals/I&O/Wt Last Vital Signs Temp 98.0 F 02/05/24 13:08 Pulse 104 H 02/05/24 14:56 Resp 18 02/05/24 14:11 BP 113/87 02/05/24 14:56 Pulse Ox 100 02/05/24 14:56 O2 Del Method BiPAP 02/05/24 14:46 O2 Flow Rate 5 02/05/24 14:11 FiO2 40 02/05/24 14:32 Weight last 48 hrs Weight 35.834 kg Physical Exam 2 Const: COMMON NORMALS: no acute distress and patient oriented x3 OTHER: Severe cachexia, protein calorie malnutrition, severe scoliosis, fat pad standing bilateral clavicles, ribs, temporal muscle wasting HENMT: COMMON NORMALS: normocephalic HEAD & SCALP: normocephalic Neck/C-Spine: COMMON NORMALS: no JVD Resp: OTHER: Tachypnea, tachycardia, intracostal retractions, suprasternal retractions, nasal flaring, short of breath after a few words Cardio: COMMON NORMALS: regular rate, regular rhythm, S1 normal heart sound present and S2 normal heart sound present RATE: tachycardic RHYTHM: r egular rhythm HEART SOUNDS: S1 normal heart sound present and S2 normal heart sound present GI: COMMON NORMALS: Normal to inspection, nondistended, normoactive bowel sounds present, Soft to palpation and non-tender Extremity: COMMON NORMALS: no calf tenderness and no pedal edema Neuro: COMMON NORMALS: patient oriented x3, CN's II-XII intact bilaterally and moves all extremities Psych: COMMON NORMALS: mental status grossly normal Data 02/05/24 13:18 02/05/24 13:18 A&P Assessment and plan (1) Progressive pulmonary hypertension: (2) Diastolic heart failure: Qualifiers: Heart failure chronicity: acute on chronic Qualified Code(s): I50.33 - Acute on chronic diastolic (congestive) heart failure (3) Chronic anticoagulation: (4) Chronic hypoxic respiratory failure, on home oxygen therapy: (5) Acute exacerbation of chronic obstructive airways disease: (6) Acute respiratory failure with hypoxia and hypercapnia: (7) Low BMI: (8) Physical deconditioning: (9) Protein calorie malnutrition: Plan Acute on chronic hypoxic hypercarbic respiratory failure -Secondary to COPD -With evidence of mild to moderate respiratory distress, nasal flaring, intercostal retractions, suprasternal retractions, tachypnea, tachycardia -With BMI 13.6, malnutrition, physical deconditioning, cachexia secondary to stage IV COPD ? With severe scoliosis Plan -Start BiPAP therapy -DuoNeb -Budesonide -Solu-Medrol 40 mg IV push every 6 hours -Rocephin -Azithromycin -Respiratory viral panel -Monitor respiratory status closely -History of atrial fibrillation, continue Cardizem, continue metoprolol -Chronic pain, on oxycodone 30 mg ER, with oxycodone IR 3 times daily 10 mg 4 times daily as needed -CODE STATUS, confirmed with the patient multiple times she is DNR/DNI -Eliquis for DVT prophylaxis Attestations 2 Medical Necessity Statement*: Patient requires hospitalization for acute COPD exacerbation, requiring inpatient admission, greater than 2 midnights Diagnoses Progressive pulmonary hypertension I27.20 Acute on chronic diastolic heart failure I50.33 Heart failure chronicity: acute on chronic Chronic anticoagulation Z79.01 Chronic hypoxic respiratory failure, on home oxygen therapy J96.11; Z99.81 Acute exacerbation of chronic obstructive airways disease J44.1 Acute respiratory failure with hypoxia and hypercapnia J96.01; J96.02 Low BMI Physical deconditioning R53.81 Protein calorie malnutrition E46
[2024-02-05 15:45] LABS: NT Pro B Type Natriuretic Pept 1123 pg/mL (0-125); Procalcitonin 0.09 ng/mL (0-0.5)
[2024-02-05] MEDS: AZITHROMYCIN ADD-Vantage 500 MG in 0.9% NaCl ADD-Vantage 250 ML 250 MG IV (15:57)
[2024-02-05] MEDS: cefTRIAXone 1,000 mg SDV 1000 MG IVP (15:58)
[2024-02-05] MEDS: oxyCODONE 5 mg IR Tab/Cap 10 MG PO (16:06)
[2024-02-05] MEDS: ondansetron 2 mg/ML SDV 2 mL 4 MG IVP (16:47)
[2024-02-05] MEDS: apixaban 5 mg Tablet PO (17:35)
[2024-02-05] MEDS: dilTIAZem 30 mg Tablet PO (17:35)
[2024-02-05 19:18] LABS: Covid PCR NEGATIVE (Negative); Influenza A NEGATIVE (Negative); Influenza B NEGATIVE (Negative); Respiratory Syncytial Virus Ce NEGATIVE (Negative)
[2024-02-05] MEDS: budesonide 0.5 mg/2 mL Neb INHALATION (20:23)
[2024-02-05] MEDS: oxyCODONE 10 mg ER (12 HR) Tablet 30 MG PO (20:31)
[2024-02-06] VITALS (27 sets, daily range): BP systolic 105–130; BP diastolic 52–87; PULSE 88–114; RESP 16–24; TEMP 36.4–36.6; O2SAT 90–100
[2024-02-06] MEDS: oxyCODONE 5 mg IR Tab/Cap 10 MG PO ×4 (02:15→23:19)
[2024-02-06] MEDS: ipratropium-albuterol 3 mL Neb INHALATION (03:35)
[2024-02-06] MEDS: pantoprazole DR 40 mg Tablet PO (05:07)
[2024-02-06] MEDS: isosorbide mononitrate ER 30 mg Tablet PO (05:07)
[2024-02-06] MEDS: metoprolol succinate ER (24 HR) 25 mg Tablet PO (05:07)
[2024-02-06] MEDS: fluoxetine 20 mg Capsule 60 MG PO (05:07)
[2024-02-06] MEDS: ARIPiprazole 2 mg Tablet PO (05:07)
[2024-02-06] MEDS: dilTIAZem 30 mg Tablet 60 MG PO (05:07)
[2024-02-06 05:08] LABS: Basophils % 0.1 %; Hematocrit 38.1 % (36-47); Lymphocytes % 9.1 %; Mean Corpuscular Volume 93.8 fl (85-98); Mean Platelet Volume 11.5 fL (7.4-10.4); Monocytes # 0.4 10^3/uL (0.2-0.9); Monocytes % 3.1 %; Neutrophils # 9.82 10^3/uL (1.8-7.7); Neutrophils % 87.2 %; Nucleated Red Blood Cells % 0 %; Platelet Count 219 10^3/cmm (157-399); Red Blood Count 4.06 10^6/uL (3.85-5.65); Red Cell Distribution Width 13.6 % (12.1-15.1); White Blood Count 11.26 10^3/uL (3.29-11.43)
[2024-02-06] MEDS: methylPREDNISolone sod succ 40 mg/mL INJ IVP ×4 (05:08→23:17)
[2024-02-06 05:31] LABS: Chol HDL Ratio 2.32 mg/dL (0.0-4.40); Cholesterol 172 mg/dL (0-200); HDL Cholesterol 74 mg/dL (60-100); LDL Cholesterol Calculated 88 mg/dL (50-129); LDL HDL Ratio 1.19 RATIO (0.00-3.22); Triglycerides 51 mg/dL (0-150)
[2024-02-06 05:32] LABS: Lactic Sepsis W/Reflex 1.1 mmol/L (0.5-2.2)
[2024-02-06 05:39] LABS: Anion Gap 12.1 (5-19); Blood Urea Nitrogen 10 mg/dL (6-20); Calcium 9.3 mg/dL (8.5-10.5); Carbon Dioxide 36 mmol/L (22-29); Chloride 95 mmol/L (98-107); Glucose 143 mg/dL (65-115); Magnesium 2.1 mg/dL (1.7-2.3); Osmolality Calculated 290 mOsm/kg (285-295); Phosphorus 3.4 mg/dL (2.5-4.5); Potassium 4.1 mmol/L (3.5-5.1); Sodium 139 mmol/L (136-145); Thyroid Stimulating Hormone 0.71 uIU/mL (0.27-4.20)
[2024-02-06] MEDS: oxyCODONE 10 mg ER (12 HR) Tablet 30 MG PO ×3 (07:56→19:54)
[2024-02-06] MEDS: apixaban 5 mg Tablet PO ×2 (07:57→17:23)
[2024-02-06] MEDS: albuterol 2.5 mg/3 mL Neb INHALATION ×4 (08:31→20:20)
[2024-02-06] MEDS: budesonide 0.5 mg/2 mL Neb INHALATION ×2 (08:31→20:19)
--- NOTE | 2024-02-06 13:52 | PC.SOCIAL ---
IMM Updated Updated pt on IMM. No questions voiced. Provided pt a copy. Initialed, dated, & timed a copy & placed in chart.
[2024-02-06] MEDS: AZITHROMYCIN ADD-Vantage 500 MG in 0.9% NaCl ADD-Vantage 250 ML 250 MG IV (14:49)
--- NOTE | 2024-02-06 15:16 | P.PN_ITS ---
Subjective 2 Subjective: Patient was seen this morning, continues to have Episodes of shortness of breath and cough, no fevers, no chills Vitals/I&O/Wt Last Vital Signs Temp 97.7 F 02/06/24 12:03 Pulse 101 H 02/06/24 12:03 Resp 17 02/06/24 14:43 BP 115/52 02/06/24 12:03 Pulse Ox 98 02/06/24 12:03 O2 Del Method Nasal Cannula 02/06/24 12:03 O2 Flow Rate 5 02/06/24 11:40 FiO2 40 02/06/24 03:38 02/06/24 02/06/24 02/06/24 06:59 14:59 22:59 Intake Total 840 / 840 Balance 840 / 840 Weight last 48 hrs Weight 37.013 kg Weight 35.834 kg Weight 35.834 kg Physical Exam 2 Const: COMMON NORMALS: no acute distress Resp: COMMON NORMALS: normal respiratory effort, No retractions, No use of accessory muscles and clear to auscultation bilaterally AUSCULTATION: clear to auscultation bilaterally Cardio: COMMON NORMALS: regular rate, regular rhythm, S1 normal heart sound present and S2 normal heart sound present RATE: regular rate RHYTHM: r egular rhythm HEART SOUNDS: S1 normal heart sound present and S2 normal heart sound present GI: COMMON NORMALS: Normal to inspection, nondistended, normoactive bowel sounds present and non-tender Extremity: COMMON NORMALS: no pedal edema Data 02/06/24 04:55 02/06/24 04:55 A&P Assessment and plan (1) Progressive pulmonary hypertension: (2) Diastolic heart failure: Qualifiers: Heart failure chronicity: acute on chronic Qualified Code(s): I50.33 - Acute on chronic diastolic (congestive) heart failure (3) Chronic anticoagulation: (4) Chronic hypoxic respiratory failure, on home oxygen therapy: (5) Acute exacerbation of chronic obstructive airways disease: (6) Acute respiratory failure with hypoxia and hypercapnia: (7) Low BMI: (8) Physical deconditioning: (9) Protein calorie malnutrition: Plan Acute on chronic hypoxic hypercarbic respiratory failure -Secondary to COPD -With evidence of mild to moderate respiratory distress, nasal flaring, intercostal retractions, suprasternal retractions, tachypnea, tachycardia -With BMI 13.6, malnutrition, physical deconditioning, cachexia secondary to stage IV COPD ? With severe scoliosis Plan -BiPAP therapy -DuoNeb -Budesonide -Solu-Medrol 40 mg IV push every 6 hours -Rocephin -Azithromycin -Respiratory viral panel -Monitor respiratory status closely -History of atrial fibrillation, continue Cardizem, continue metoprolol -Chronic pain, on oxycodone 30 mg ER, with oxycodone IR 3 times daily 10 mg 4 times daily as needed -CODE STATUS, confirmed with the patient multiple times she is DNR/DNI -Eliquis for DVT prophylaxis Attestations 2 Medical Necessity Statement*: Patient requires hospitalization for acute hypoxic respiratory failure secondary to COPD Diagnoses Progressive pulmonary hypertension I27.20 Acute on chronic diastolic heart failure I50.33 Heart failure chronicity: acute on chronic Chronic anticoagulation Z79.01 Chronic hypoxic respiratory failure, on home oxygen therapy J96.11; Z99.81 Acute exacerbation of chronic obstructive airways disease J44.1 Acute respiratory failure with hypoxia and hypercapnia J96.01; J96.02 Low BMI Physical deconditioning R53.81 Protein calorie malnutrition E46
[2024-02-06] MEDS: cefTRIAXone 1,000 mg SDV 1000 MG IVP (15:34)
[2024-02-06] MEDS: ondansetron 2 mg/ML SDV 2 mL 4 MG IVP (15:34)
[2024-02-06] MEDS: dilTIAZem 30 mg Tablet PO (17:23)
[2024-02-07] VITALS (16 sets, daily range): BP systolic 119–155; BP diastolic 76–87; PULSE 52–112; RESP 16–22; TEMP 36.4–36.8; O2SAT 90–100
[2024-02-07] MEDS: ipratropium-albuterol 3 mL Neb INHALATION (04:01)
[2024-02-07] MEDS: oxyCODONE 5 mg IR Tab/Cap 10 MG PO ×2 (04:14→11:45)
[2024-02-07 05:14] LABS: Basophils % 0.1 %; Hematocrit 40.5 % (36-47); Lymphocytes # 0.8 10^3/uL (0.8-4.8); Lymphocytes % 3.6 %; Mean Corpuscular HGB Conc 32.1 g/dL (30-55); Mean Corpuscular Hemoglobin 30.2 pg (27-33); Mean Corpuscular Volume 94.2 fl (85-98); Mean Platelet Volume 11.7 fL (7.4-10.4); Monocytes # 0.7 10^3/uL (0.2-0.9); Monocytes % 3.2 %; Neutrophils # 21.23 10^3/uL (1.8-7.7); Neutrophils % 92.1 %; Nucleated Red Blood Cells % 0 %; Platelet Count 277 10^3/cmm (157-399); Red Cell Distribution Width 14.1 % (12.1-15.1); White Blood Count 23.05 10^3/uL (3.29-11.43)
[2024-02-07] MEDS: fluoxetine 20 mg Capsule 60 MG PO (05:28)
[2024-02-07] MEDS: ARIPiprazole 2 mg Tablet PO (05:28)
[2024-02-07] MEDS: pantoprazole DR 40 mg Tablet PO (05:29)
[2024-02-07] MEDS: isosorbide mononitrate ER 30 mg Tablet PO (05:29)
[2024-02-07] MEDS: dilTIAZem 30 mg Tablet 60 MG PO (05:30)
--- NOTE | 2024-02-07 05:30 | ECG_ITS ---
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 Measurements Intervals [place] Rate: 128 P: 88 MS: 148 QRS: 64 QRSD: 76 T: 86 QT: 298 QTc: 436 Interpretive Statements SINUS TACHYCARDIA WITH OCCASIONAL SUPRAVENTRICULAR PREMATURE COMPLEXES MINIMAL VOLTAGE CRITERIA FOR LVH, CONSIDER NORMAL VARIANT [MEETS CRITERIA IN ONE OF: R(aVL), S(V1), R(V5), R(V5/V6)+S(V1)] ANTEROSEPTAL MYOCARDIAL INFARCTION , OF INDETERMINATE AGE [40+ ms Q WAVE IN V1-V4] Compared to ECG 02/05/2024 13:30:42 No significant changes Electronically Signed On 02-07-2024 10:18:14 SOFTWARE QA SYSTEM SPECIALIST by Junior Gaytan M.D. [id number]
[2024-02-07 05:41] LABS: Blood Urea Nitrogen 10 mg/dL (6-20); Calcium 9.7 mg/dL (8.5-10.5); Carbon Dioxide 35 mmol/L (22-29); Chloride 95 mmol/L (98-107); Glucose 115 mg/dL (65-115); Magnesium 2.1 mg/dL (1.7-2.3); Osmolality Calculated 290 mOsm/kg (285-295); Phosphorus 3.4 mg/dL (2.5-4.5); Sodium 140 mmol/L (136-145)
[2024-02-07] MEDS: metoprolol tartrate 1 mg/1 mL SDV 5 mL 2.5 MG IVP ×2 (05:54→06:05)
[2024-02-07] MEDS: metoprolol succinate ER (24 HR) 25 mg Tablet PO (05:58)
--- NOTE | 2024-02-07 06:45 | PC.NURSE ---
patient running sinus tach on tele with a heart rate 110-140, heart rate got as high as 184 at one time, but then went right back down between 110-140. dr gonzales notified, metaprolol 2.5mg ivp given per dr orders, patient tolerated well. patient had solumedrol 40mg ordered for 6am meds, medication not given due to heart rate. ekg ran, ekg said sinus tach with frequent rvc
[2024-02-07] MEDS: budesonide 0.5 mg/2 mL Neb INHALATION ×2 (08:29→21:38)
[2024-02-07] MEDS: albuterol 2.5 mg/3 mL Neb INHALATION ×4 (08:30→21:38)
[2024-02-07] MEDS: oxyCODONE 10 mg ER (12 HR) Tablet 30 MG PO ×3 (09:01→20:19)
[2024-02-07] MEDS: apixaban 5 mg Tablet PO ×2 (09:01→17:07)
[2024-02-07] MEDS: acetaminophen 325 mg Tablet 650 MG PO (09:04)
[2024-02-07] MEDS: methylPREDNISolone sod succ 40 mg/mL INJ IVP ×3 (11:44→23:24)
--- NOTE | 2024-02-07 14:58 | P.PN_ITS ---
Subjective 2 Subjective: Patient was seen this morning, she denies any fevers, no chills, no cough, does report shortness of breath Vitals/I&O/Wt Last Vital Signs Temp 98.0 F 02/07/24 12:00 Pulse 95 02/07/24 12:00 Resp 16 02/07/24 12:00 BP 125/84 02/07/24 12:00 Pulse Ox 96 02/07/24 12:00 O2 Del Method Nasal Cannula 02/07/24 12:00 O2 Flow Rate 5 02/07/24 12:00 FiO2 60 02/06/24 23:34 02/06/24 02/07/24 02/07/24 22:59 06:59 14:59 Intake Total 250 / 1090 360 / 360 Balance 250 / 1090 360 / 360 Weight last 48 hrs Weight 39.548 kg Weight 37.013 kg Weight 35.834 kg Physical Exam 2 Const: COMMON NORMALS: no acute distress and patient oriented x3 Resp: COMMON NORMALS: normal respiratory effort, No retractions and No use of accessory muscles AUSCULTATION: wheezes Cardio: COMMON NORMALS: regular rate, regular rhythm, S1 normal heart sound present and S2 normal heart sound present RATE: regular rate RHYTHM: r egular rhythm HEART SOUNDS: S1 normal heart sound present and S2 normal heart sound present GI: COMMON NORMALS: Normal to inspection, nondistended, normoactive bowel sounds present and non-tender Extremity: COMMON NORMALS: no pedal edema Neuro: COMMON NORMALS: patient oriented x3 Psych: COMMON NORMALS: mental status grossly normal Data 02/07/24 04:53 02/07/24 04:53 A&P Assessment and plan (1) Progressive pulmonary hypertension: (2) Diastolic heart failure: Qualifiers: Heart failure chronicity: acute on chronic Qualified Code(s): I50.33 - Acute on chronic diastolic (congestive) heart failure (3) Chronic anticoagulation: (4) Chronic hypoxic respiratory failure, on home oxygen therapy: (5) Acute exacerbation of chronic obstructive airways disease: (6) Acute respiratory failure with hypoxia and hypercapnia: (7) Low BMI: (8) Physical deconditioning: (9) Protein calorie malnutrition: Plan Acute on chronic hypoxic hypercarbic respiratory failure -Secondary to COPD -With evidence of mild to moderate respiratory distress, nasal flaring, intercostal retractions, suprasternal retractions, tachypnea, tachycardia -With BMI 13.6, malnutrition, physical deconditioning, cachexia secondary to stage IV COPD ? With severe scoliosis Plan -BiPAP therapy -DuoNeb -Budesonide -Solu-Medrol 40 mg IV push every 6 hours -Rocephin -Azithromycin -Respiratory viral panel -Monitor respiratory status closely -History of atrial fibrillation, continue Cardizem, continue metoprolol -Chronic pain, on oxycodone 30 mg ER, with oxycodone IR 3 times daily 10 mg 4 times daily as needed -CODE STATUS, confirmed with the patient multiple times she is DNR/DNI -Eliquis for DVT prophylaxis Plan for today continue antibiotics, continue steroids Attestations 2 Medical Necessity Statement*: Patient requires hospitalization for respiratory failure, Coding Level of Care Code Acute Code for g Fwd Diagnoses Progressive pulmonary hypertension I27.20 Acute on chronic diastolic heart failure I50.33 Heart failure chronicity: acute on chronic Chronic anticoagulation Z79.01 Chronic hypoxic respiratory failure, on home oxygen therapy J96.11; Z99.81 Acute exacerbation of chronic obstructive airways disease J44.1 Acute respiratory failure with hypoxia and hypercapnia J96.01; J96.02 Low BMI Physical deconditioning R53.81 Protein calorie malnutrition E46
[2024-02-07] MEDS: AZITHROMYCIN ADD-Vantage 500 MG in 0.9% NaCl ADD-Vantage 250 ML 250 MG IV (15:33)
[2024-02-07] MEDS: ondansetron 2 mg/ML SDV 2 mL 4 MG IVP (17:06)
[2024-02-07] MEDS: cefTRIAXone 1,000 mg SDV 1000 MG IVP (17:07)
[2024-02-07] MEDS: dilTIAZem 30 mg Tablet PO (17:07)
--- NOTE | 2024-02-07 21:52 | PC.RESP ---
2247 pt placed on Profox @ 5lpm nc
[2024-02-08] VITALS (23 sets, daily range): BP systolic 112–188; BP diastolic 70–99; PULSE 69–135; RESP 12–35; TEMP 36.6–36.7; O2SAT 83–100
[2024-02-08] MEDS: morphine 4 mg/mL SDV 1 mL 1 MG IVP ×2 (00:14→03:57)
--- NOTE | 2024-02-08 00:15 | PC.NURSE ---
At 2324 this nurse administered solumedrol IVP as ordered while DEBORAH Mckenzie checked the patient's vitals. At this time the patient was resting comfortably and did not complain of any distress or voice any needs. At 0000 the patient called for help. This nurse entered the room with DEBORAH Mckenzie and the patient was sitting on the bedside commode in noticeable respiratory distress. She was tachypneic, using abdominal and accessory muscles to breathe, her respiratory rate was 35, and upon auscultation she had expiratory wheezing. The patient was tremoring severely and it was not possible to get an SpO2 reading despite multiple different attempts. Telemetry showed the patient's heart rate was 130s-150s. This nurse applied a nonrebreather at 10L and called the respiratory therapist. This nurse then contacted Dr Markham via [employer] messenger and notified him of the patient's change in status. Received an order for morphine 1mg IVP once. The RT applied the patient's bipap and this nurse administered the morphine as ordered. The patient began to calm down and recover after interventions. At this time she is resting in bed with bipap applied, heart rate 120, and respirations 28.
[2024-02-08] MEDS: ipratropium-albuterol 3 mL Neb INHALATION (03:10)
--- NOTE | 2024-02-08 03:59 | PC.NURSE ---
Patient got up to bedside commode and became severely short of breath once again. Patient's RR was 36, HR was 135, oxygen saturation 83%, abdominal breathing with accessory muscles. Upon auscultation she had prominent expiratory wheezing throughout. This nurse placed the patient back on bipap, called RT, and notified Dr Markham via [employer] messenger. Dr Markham gave order for morphine 1mg IVP once. utility manager Sarah overrode morphine and witnessed waste with this nurse for patient in distress.
[2024-02-08 04:12] LABS: Basophils % 0.1 %; Hematocrit 43.3 % (36-47); Lymphocytes # 0.7 10^3/uL (0.8-4.8); Lymphocytes % 3.4 %; Mean Corpuscular HGB Conc 32.1 g/dL (30-55); Mean Corpuscular Hemoglobin 30.4 pg (27-33); Mean Corpuscular Volume 94.7 fl (85-98); Mean Platelet Volume 11.1 fL (7.4-10.4); Monocytes # 0.8 10^3/uL (0.2-0.9); Monocytes % 3.9 %; Neutrophils # 19.89 10^3/uL (1.8-7.7); Neutrophils % 91.7 %; Nucleated Red Blood Cells % 0 %; Platelet Count 343 10^3/cmm (157-399); Red Blood Count 4.57 10^6/uL (3.85-5.65); Red Cell Distribution Width 13.8 % (12.1-15.1); White Blood Count 21.68 10^3/uL (3.29-11.43)
[2024-02-08 04:29] LABS: Anion Gap 17.1 (5-19); Blood Urea Nitrogen 14 mg/dL (6-20); Carbon Dioxide 31 mmol/L (22-29); Chloride 97 mmol/L (98-107); Creatinine Clr Calc Pharmacy 55.3594; Glomerular Filtration Rate 86.2 mL/min (90-130); Glucose 105 mg/dL (65-115); Magnesium 2.3 mg/dL (1.7-2.3); Osmolality Calculated 293 mOsm/kg (285-295); Phosphorus 4.4 mg/dL (2.5-4.5); Potassium 4.1 mmol/L (3.5-5.1); Sodium 141 mmol/L (136-145)
--- NOTE | 2024-02-08 04:30 | PC.RESP ---
Pt Placed on and off BIPAP after trips to restroom. Pt on 5 lpm nc. Profox study unable to be completed.
[2024-02-08] MEDS: metoprolol tartrate 1 mg/1 mL SDV 5 mL 2.5 MG IVP (05:10)
--- NOTE | 2024-02-08 05:17 | PC.NURSE ---
Patient sustaining in the 130s on telemetry while at rest in bed. At times she has runs where her heart rate reaches 160s and then drops again to sustaining 130s. Notified Dr Markham via [employer] and received an order for metoprolol 2.5mg IVP once and to hold the morning dose of solumedrol.
[2024-02-08] MEDS: LORazepam 2 mg/mL INJ 1 mL 0.5 MG IVP (06:43)
--- NOTE | 2024-02-08 07:33 | PC.NURSE ---
At 0612 the patient became distressed again. RR 32, HR 136, SpO2 reading with good waveform unable to be obtained. Patient exhibited abdominal breathing and accessory muscle use. Notified RT and placed patient back on bipap, then notified Dr. Markham and suggested it might be best to try and keep the patient on the bipap until breakfast, since the only time she seemed to be doing well without respiratory distress was when she was wearing the bipap or had been on the bipap for a good amount of time. The patient had requested to be placed on bipap after getting up several times, but then would request the bipap be taken off after only a few minutes of wearing it the previous times she had gone into respiratory distress. Dr. Markham agreed that it would be best to try and keep her on the bipap until breakfast and that it was okay to delay her 0600 scheduled medications until breakfast trays were delivered. Shortly after explaining this to the patient, she again requested to have the bipap removed. Notified Dr Markham, who ordered ativan 0.5mg IVP once for anxiety and restlessness. Patient now appears much more comfortable after having the bipap on and receiving ativan.
[2024-02-08] MEDS: oxyCODONE 10 mg ER (12 HR) Tablet 30 MG PO ×3 (08:14→21:45)
[2024-02-08] MEDS: ARIPiprazole 2 mg Tablet PO (08:14)
[2024-02-08] MEDS: pantoprazole DR 40 mg Tablet PO (08:15)
[2024-02-08] MEDS: isosorbide mononitrate ER 30 mg Tablet PO (08:16)
[2024-02-08] MEDS: metoprolol succinate ER (24 HR) 25 mg Tablet PO (08:16)
[2024-02-08] MEDS: apixaban 5 mg Tablet PO ×2 (08:17→17:34)
[2024-02-08] MEDS: fluoxetine 20 mg Capsule 60 MG PO (08:17)
[2024-02-08] MEDS: dilTIAZem 30 mg Tablet 60 MG PO (08:24)
--- NOTE | 2024-02-08 08:52 | ECG_ITS ---
[facility] Test Date: 2024-02-08 Pat Name: Elsy Soto Department: Room: 259 Gender: Female Emergency Management Director: : 1965 Requested By: David Mckeon Order Number: [id number] Krishnamurthy MD: ANDRÉS HUBER Measurements Intervals [place] Rate: 124 P: 66 MT: 153 QRS: 66 QRSD: 75 T: 69 QT: 306 QTc: 441 Interpretive Statements SINUS TACHYCARDIA WITH OCCASIONAL SUPRAVENTRICULAR PREMATURE COMPLEXES VOLTAGE CRITERIA FOR LVH [MEETS CRITERIA IN ONE OF: R(aVL), S(V1), R(V5), R(V5/V6)+S(V1)] POSSIBLE SEPTAL MYOCARDIAL INFARCTION , PROBABLY OLD [30 ms Q WAVE IN V1/V2] Compared to ECG 02/07/2024 05:34:08 No significant changes Electronically Signed On 02-09-2024 19:25:46 DATA INTEGRITY CONSULTANT by ANDRÉS HUBER [id number]
[2024-02-08] MEDS: budesonide 0.5 mg/2 mL Neb INHALATION ×2 (08:59→21:42)
[2024-02-08] MEDS: albuterol 2.5 mg/3 mL Neb INHALATION ×4 (08:59→21:42)
[2024-02-08 09:20] LABS: Troponin(5th) Baseline 38 ng/L (0-10)
--- NOTE | 2024-02-08 10:04 | PC.NURSE ---
Called report to Jonathan in [facility] patient transferring to [facility]
--- NOTE | 2024-02-08 10:46 | ECG_ITS ---
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 Helper: : 1965 Requested By: David Mckeon Order Number: [id number] Raghu MD: ANDRÉS HUBER Measurements Intervals [place] Rate: 103 P: 55 WA: 120 QRS: 41 QRSD: 87 T: 52 QT: 364 QTc: 477 Interpretive Statements SINUS TACHYCARDIA MINIMAL VOLTAGE CRITERIA FOR LVH, CONSIDER NORMAL VARIANT [MEETS CRITERIA IN ONE OF: R(aVL), S(V1), R(V5), R(V5/V6)+S(V1)] ABNORMAL RHYTHM ECG Compared to ECG 02/08/2024 08:52:38 Myocardial infarct finding no longer present Electronically Signed On 02-09-2024 19:30:51 OUTBOUND TELEMARKETING REPRESENTATIVE by ANDRÉS HUBER [id number]
[2024-02-08] MEDS: methylPREDNISolone sod succ 40 mg/mL INJ IVP (11:02)
[2024-02-08 11:16] LABS: Troponin 5 2HR 33.91 ng/L (0-10)
[2024-02-08 11:17] LABS: Troponin 5 2HR Delta -4.09 ABS# (0-10)
[2024-02-08] MEDS: oxyCODONE 5 mg IR Tab/Cap 10 MG PO ×2 (12:16→18:38)
--- NOTE | 2024-02-08 14:46 | ECG_ITS ---
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: : 1965 Requested By: David Mckeon Order Number: [id number] Raghu MD: ANDRÉS HUBER Measurements Intervals [place] Rate: 92 P: 62 IN: 125 QRS: 40 QRSD: 79 T: 48 QT: 381 QTc: 472 Interpretive Statements SINUS RHYTHM ANTEROSEPTAL MYOCARDIAL INFARCTION , OF INDETERMINATE AGE [40+ ms Q WAVE IN V1-V4] Compared to ECG 02/08/2024 12:12:50 Myocardial infarct finding now present Sinus tachycardia no longer present Electronically Signed On 02-09-2024 19:30:33 SUPERINTENDENT OVERHEAD DISTRIBUTION by ANDRÉS HUBER [id number]
--- NOTE | 2024-02-08 14:57 | P.PN_ITS ---
Subjective 2 Subjective: Patient was seen this morning, early this morning, patient was seen, heart rates in the 180s, telemetry shows evidence of A-fib with RVR, she has got her metoprolol this morning, she has received her Cardizem, she has a history of rapid heart rate,, history of atrial fibrillation, history of sinus tachycardia, she does tell me that she is feeling it currently, Vitals/I&O/Wt Last Vital Signs Temp 98.0 F 02/08/24 10:58 Pulse 102 H 02/08/24 12:20 Resp 18 02/08/24 12:16 BP 112/70 02/08/24 10:58 Pulse Ox 93 02/08/24 12:16 O2 Del Method Nasal Cannula 02/08/24 12:00 O2 Flow Rate 6 02/08/24 12:00 FiO2 100 02/08/24 00:00 02/07/24 02/08/24 02/08/24 22:59 06:59 14:59 Intake Total 280 / 640 720 / 720 Balance 280 / 640 720 / 720 Weight last 48 hrs Weight 40.115 kg Weight 39.548 kg Physical Exam 2 Const: COMMON NORMALS: no acute distress and patient oriented x3 Resp: COMMON NORMALS: normal respiratory effort, No retractions, No use of accessory muscles and clear to auscultation bilaterally AUSCULTATION: clear to auscultation bilaterally Cardio: COMMON NORMALS: regular rate, regular rhythm, S1 normal heart sound present and S2 normal heart sound present RATE: regular rate RHYTHM: r egular rhythm HEART SOUNDS: S1 normal heart sound present and S2 normal heart sound present GI: COMMON NORMALS: Normal to inspection, nondistended, normoactive bowel sounds present and non-tender Extremity: COMMON NORMALS: no pedal edema Neuro: COMMON NORMALS: patient oriented x3 Psych: COMMON NORMALS: mental status grossly normal Data 02/08/24 03:58 02/08/24 03:58 A&P Assessment and plan (1) Progressive pulmonary hypertension: (2) Diastolic heart failure: Qualifiers: Heart failure chronicity: acute on chronic Qualified Code(s): I50.33 - Acute on chronic diastolic (congestive) heart failure (3) Chronic anticoagulation: (4) Chronic hypoxic respiratory failure, on home oxygen therapy: (5) Acute exacerbation of chronic obstructive airways disease: (6) Acute respiratory failure with hypoxia and hypercapnia: (7) Low BMI: (8) Physical deconditioning: (9) Protein calorie malnutrition: Plan Acute on chronic hypoxic hypercarbic respiratory failure -Secondary to COPD -With evidence of mild to moderate respiratory distress, nasal flaring, intercostal retractions, suprasternal retractions, tachypnea, tachycardia -With BMI 13.6, malnutrition, physical deconditioning, cachexia secondary to stage IV COPD ? With severe scoliosis Plan -BiPAP therapy -DuoNeb -Budesonide -De-escalate to prednisone 40 mg daily -Rocephin -Azithromycin -Monitor respiratory status closely -History of atrial fibrillation, continue Cardizem, continue metoprolol -Chronic pain, on oxycodone 30 mg ER, with oxycodone IR 3 times daily 10 mg 4 times daily as needed -CODE STATUS, confirmed with the patient multiple times she is DNR/DNI -Eliquis for DVT prophylaxis Now with A-fib with RVR -Currently on amiodarone drip -Continue metoprolol 25 mg p.o. daily -Continue p.o. Cardizem Plan for today continue antibiotics, continue steroids Attestations 2 Medical Necessity Statement*: Patient requires hospitalization for respiratory failure, COPD, atrial fibrillation Diagnoses Progressive pulmonary hypertension I27.20 Acute on chronic diastolic heart failure I50.33 Heart failure chronicity: acute on chronic Chronic anticoagulation Z79.01 Chronic hypoxic respiratory failure, on home oxygen therapy J96.11; Z99.81 Acute exacerbation of chronic obstructive airways disease J44.1 Acute respiratory failure with hypoxia and hypercapnia J96.01; J96.02 Low BMI Physical deconditioning R53.81 Protein calorie malnutrition E46
[2024-02-08] MEDS: cefTRIAXone 1,000 mg SDV 1000 MG IVP (15:31)
--- NOTE | 2024-02-08 15:46 | PC.NURSE ---
Nursing staff mixed azithromycin add-vantage 500mg in 0.9% NaCL add, went to patients room to hand IV and provider discontinued this medication and changed it to PO. Medication is wasted in the pyxsis.
[2024-02-08 16:06] LABS: Troponin 5 6HR 32.05 ng/L (0-10); Troponin 5 6HR Delta -5.95 ng/L (0-12)
[2024-02-08] MEDS: dilTIAZem 30 mg Tablet PO (17:34)
[2024-02-08] MEDS: azithromycin 250 mg Tablet PO (17:34)
[2024-02-09] VITALS (10 sets, daily range): BP systolic 134–164; BP diastolic 88–102; PULSE 76–96; RESP 18–28; TEMP 36.5–36.8; O2SAT 88–100
[2024-02-09 04:31] LABS: Basophils % 0.1 %; Hematocrit 37.5 % (36-47); Lymphocytes # 1.1 10^3/uL (0.8-4.8); Lymphocytes % 7.1 %; Mean Corpuscular HGB Conc 31.5 g/dL (30-55); Mean Corpuscular Hemoglobin 29.5 pg (27-33); Mean Corpuscular Volume 93.8 fl (85-98); Mean Platelet Volume 11.9 fL (7.4-10.4); Monocytes # 1.2 10^3/uL (0.2-0.9); Monocytes % 7.7 %; Neutrophils # 13.61 10^3/uL (1.8-7.7); Neutrophils % 84.2 %; Nucleated Red Blood Cells % 0 %; Platelet Count 216 10^3/cmm (157-399); Red Cell Distribution Width 13.7 % (12.1-15.1); White Blood Count 16.14 10^3/uL (3.29-11.43)
[2024-02-09 04:49] LABS: Alanine Aminotransferase 35 U/L (0-33); Albumin Level 3.8 g/dL (3.5-5.2); Alkaline Phosphatase 119 U/L (35-105); Anion Gap 12.2 (5-19); Aspartate Amino Transferase 22 U/L (0-32); Blood Urea Nitrogen 12 mg/dL (6-20); Calcium 9.3 mg/dL (8.5-10.5); Carbon Dioxide 36 mmol/L (22-29); Chloride 100 mmol/L (98-107); Creatinine Clr Calc Pharmacy 65.5119; Globulin 1.3 g/dL (1.3-4.6); Glucose 83 mg/dL (65-115); Magnesium 2.4 mg/dL (1.7-2.3); Osmolality Calculated 297 mOsm/kg (285-295); Potassium 4.2 mmol/L (3.5-5.1); Sodium 144 mmol/L (136-145); Total Bilirubin 0.2 mg/dL (0.15-1.2); Total Protein 5.1 g/dL (6.6-8.7)
[2024-02-09 05:01] LABS: NT Pro B Type Natriuretic Pept 4527 pg/mL (0-125)
[2024-02-09] MEDS: pantoprazole DR 40 mg Tablet PO (05:44)
[2024-02-09] MEDS: ARIPiprazole 2 mg Tablet PO (05:44)
[2024-02-09] MEDS: fluoxetine 20 mg Capsule 60 MG PO (05:44)
[2024-02-09] MEDS: metoprolol succinate ER (24 HR) 25 mg Tablet PO (05:45)
[2024-02-09] MEDS: isosorbide mononitrate ER 30 mg Tablet PO (05:45)
[2024-02-09] MEDS: dilTIAZem 30 mg Tablet 60 MG PO (05:45)
[2024-02-09] MEDS: oxyCODONE 5 mg IR Tab/Cap 10 MG PO ×2 (05:48→11:26)
[2024-02-09] MEDS: budesonide 0.5 mg/2 mL Neb INHALATION (09:11)
[2024-02-09] MEDS: albuterol 2.5 mg/3 mL Neb INHALATION ×2 (09:11→13:12)
[2024-02-09] MEDS: apixaban 5 mg Tablet PO (09:28)
[2024-02-09] MEDS: predniSONE 20 mg Tablet 40 MG PO (09:28)
[2024-02-09] MEDS: amiodarone 200 mg Tablet 400 MG PO (09:28)
[2024-02-09] MEDS: oxyCODONE 10 mg ER (12 HR) Tablet 30 MG PO (09:29)
--- NOTE | 2024-02-09 10:55 | PM.DCS ---
Discharge Providers Date of Admission: 02/05/24 14:48 Date of Discharge: February 09, 2024 Attending Provider at Admission: David Mckeon MD Attending Provider at Discharge: David Mckeon MD Primary Care Provider: Ludin Schmitt MD Diagnoses at Discharge Discharge Diagnosis (1) Progressive pulmonary hypertension: Status: Chronic (2) Diastolic heart failure: Status: Chronic Qualifiers: Heart failure chronicity: acute on chronic Qualified Code(s): I50.33 - Acute on chronic diastolic (congestive) heart failure Permanent problem details: Class III-IV (3) Chronic anticoagulation: Status: Chronic Permanent problem details: Eliquis, due to history of DVT/PE (4) Chronic hypoxic respiratory failure, on home oxygen therapy: Status: Chronic Permanent problem details: 5L (5) Acute exacerbation of chronic obstructive airways disease: Status: Acute (6) Acute respiratory failure with hypoxia and hypercapnia: Status: Acute (7) Low BMI: Status: Acute (8) Physical deconditioning: Status: Acute (9) Protein calorie malnutrition: Status: Acute Reason for Visit Reason for Visit: SOB, incoherent, fatigue Hospital Course Hospital Course Elsy Soto is a 58 year old female with a past medical history of stage IV COPD, chronically on 5 L, history of DVT, history of osteoporosis, GERD, dyslipidemia, history of CHF, history of severe scoliosis, BMI 13.6, who presents to [facility] for shortness of breath, cough. Patient reports that she has been short of breath for the last few days, with nonproductive cough, no fevers, no chills, no nausea, no vomiting, no lightheadedness, no dizziness, reports shortness of breath with exertion Patient was admitted to [facility] for acute hypoxic hypercarbic respiratory failure secondary to COPD, with mild to moderate respiratory distress, required inpatient admission, IV antibiotics, IV steroids, clinically monitored. Overall patient's clinical condition improved, discharged with a prednisone burst, azithromycin, with close follow-up with primary care provider as outpatient Patient had episodes of A-fib with RVR, multifocal atrial tachycardia during her hospitalization, symptomatic with complaints of palpitation and shortness of breath, requiring amiodarone drip, weaned off amiodarone drip, transition to p.o. amiodarone, on discharge she is normal sinus rhythm, discharged on a tapering dose of amiodarone, continue home Eliquis, follow-up with primary care provider, follow-up with cardiology. Physical Exam Const: COMMON NORMALS: no acute distress and patient oriented x3 Resp: COMMON NORMALS: normal respiratory effort, No retractions, No use of accessory muscles and clear to auscultation bilaterally AUSCULTATION: clear to auscultation bilaterally Cardio: COMMON NORMALS: regular rate, regular rhythm, S1 normal heart sound present and S2 normal heart sound present RATE: regular rate RHYTHM: regular rhythm HEART SOUNDS: S1 normal heart sound present and S2 normal heart sound present GI: COMMON NORMALS: Normal to inspection, nondistended, normoactive bowel sounds present and non-tender Extremity: COMMON NORMALS: no pedal edema Neuro: COMMON NORMALS: patient oriented x3 Psych: COMMON NORMALS: mental status grossly normal Urinary Catheter Management: Villalba: Cath Placed During This Visit: no Reason for Continuing Indwelling Catheter: Accurate Measurement of Urinary Output in Critically Ill Patients Discharge Data Studies Completed and Pending Completed Studies During Hospitalization Category Date Time Status XR chest 1V portable [id number] Stat Exams 02/05/24 13:11 Completed Pending at discharge Category Date Time Status Complete Blood Count w/Auto AM LABS Lab 02/10/24 04:00 Ordered Complete Blood Count w/Auto AM LABS Lab 02/11/24 04:00 Ordered Comprehensive Metabolic Panel AM LABS Lab 02/10/24 04:00 Ordered Comprehensive Metabolic Panel AM LABS Lab 02/11/24 04:00 Ordered Magnesium AM LABS Lab 02/10/24 04:00 Ordered Magnesium AM LABS Lab 02/11/24 04:00 Ordered NT Pro B Type Natriuretic Pept QAM Lab 02/10/24 06:00 Ordered NT Pro B Type Natriuretic Pept QAM Lab 02/11/24 06:00 Ordered Radiology Impressions Chest X-Ray 02/05/24 13:11 IMPRESSION: 1. No acute infiltrates are identified. Extensive chronic changes and pulmonary hyperinflation. 2. Enlarged main pulmonary artery suggesting pulmonary hypertension. There is also rotation of the chest which accentuates the right main pulmonary artery. The appearance is unchanged. Laboratory Results WBC 16.14 10^3/uL (3.29-11.43) H 02/09/24 03:26 RBC 4.00 10^6/uL (3.85-5.65) 02/09/24 03:26 Hgb 11.80 g/dL (11.27-16.99) 02/09/24 03: Hct 37.5 % (36-47) 02/09/24 03:26 MCV 93.8 fl (85-98) 02/09/24 03:26 MCH 29.5 pg (27-33) 02/09/24 03: MCHC 31.5 g/dL (30-55) 02/09/24 03:26 RDW 13.7 % (12.1-15.1) 02/09/24 03:26 Plt Count 216 10^3/cmm (157-399) D 02/09/24 03:26 MPV 11.9 fL (7.4-10.4) H 02/09/24 03:26 Neut % (Auto) 84.2 % 02/09/24 03:26 Lymph % (Auto) 7.1 % 02/09/24 03:26 Gilchrist % (Auto) 7.7 % 02/09/24 03:26 Eos % (Auto) 0.0 % 02/09/24 03:26 Baso % (Auto) 0.1 % 02/09/24 03:26 Neut # (Auto) 13.61 10^3/uL (1.8-7.7) H 02/09/24 03:26 Lymph # (Auto) 1.1 10^3/uL (0.8-4.8) 02/09/24 03:26 Gilchrist # (Auto) 1.2 10^3/uL (0.2-0.9) H 02/09/24 03:26 Eos # (Auto) 0.0 10^3/uL (0.0-0.8) 02/09/24 03:26 Baso # (Auto) 0.0 10^3/uL (0.0-0.1) 02/09/24 03: Nucleated RBC % (auto) 0 % 02/09/24 03: Nucleated RBCs # 0.0 /100WBC 02/09/24 03:26 Specimen Type Arterial 02/05/24 13:17 Sample Site Radial, left 02/05/24 13:17 ABG pH 7.44 (7.35-7.45) 02/05/24 13:17 ABG pCO2 54.5 mmHg (35-45) H 02/05/24 13:17 ABG pO2 60.6 mmHg (80.0-100.0) L 02/05/24 13:17 ABG HCO3 37.3 mmol/L (22-26) H 02/05/24 13:17 ABG O2 Saturation 92.5 02/05/24 13:17 ABG Base Excess 11.2 mmol/L (-2.0-2.0) H 02/05/24 13:17 Eliu Test Pos 02/05/24 13:17 A-a O2 Gradient 3.0 mmHg (5-10) L 02/05/24 13:17 Hematocrit 40.1 % (37-47) 02/05/24 13:17 Hgb O2 Saturation 89.9 % (95-100) L 02/05/24 13:17 Carboxyhemoglobin 1.7 %THgb (0.4-20.1) 02/05/24 13:17 Methemoglobin 1.0 % (0.4-1.5) 02/05/24 13:17 Total Hemoglobin 13.1 g/dL (12-16) 02/05/24 13:17 Sodium 137.0 mmol/L (131-143) 02/05/24 13:17 Potassium 3.8 mmol/L (3.5-5.0) 02/05/24 13:17 Glucose 122.0 mg/dL (70-115) H 02/05/24 13:17 Ionized Calcium 1.1 mmol/L (1.1-1.4) 02/05/24 13:17 O2 Delivery Device Nc 02/05/24 13:17 O2 Liters/Min 5.0 % 02/05/24 13:17 Gas Turbine [employer]er ID [place] 02/05/24 13:17 Sodium 144 mmol/L (136-145) 02/09/24 03:26 Potassium 4.2 mmol/L (3.5-5.1) 02/09/24 03:26 Chloride 100 mmol/L (98-107) 02/09/24 03:26 Carbon Dioxide 36 mmol/L (22-29) H 02/09/24 03:26 Anion Gap 12.2 (5-19) 02/09/24 03:26 BUN 12 mg/dL (6-20) 02/09/24 03:26 Creatinine 0.6 mg/dL (0.5-0.9) 02/09/24 03:26 GFR Calculation 103.0 mL/min (90-130) 02/09/24 03:26 Glucose 83 mg/dL (65-115) 02/09/24 03:26 Calculated Osmolality 297 mOsm/kg (285-295) H 02/09/24 03:26 Lactic Acid 1.1 mmol/L (0.5-2.2) 02/06/24 04:55 Calcium 9.3 mg/dL (8.5-10.5) 02/09/24 03:26 Phosphorus 4.4 mg/dL (2.5-4.5) 02/08/24 03:58 Magnesium 2.4 mg/dL (1.7-2.3) H 02/09/24 03:26 Total Bilirubin 0.2 mg/dL (0.15-1.2) 02/09/24 03:26 AST 22 U/L (0-32) 02/09/24 03:26 ALT 35 U/L (0-33) H 02/09/24 03:26 Alkaline Phosphatase 119 U/L (35-105) H 02/09/24 03:26 Troponin T Baseline 38 ng/L (0-10) H 02/08/24 08:57 Troponin T 120 Minute 33.91 ng/L (0-10) H 02/08/24 10:50 Delta Troponin T -4.09 ABS# (0-10) L 02/08/24 10:50 Troponin T Hi Sens 6Hr 32.05 ng/L (0-10) H 02/08/24 15:21 Troponin T Hi Sens 6Hr Delta -5.95 ng/L (0-12) L 02/08/24 15:21 NT-Pro-B Natriuret Pep 4527 pg/mL (0-125) H 02/09/24 03:26 Total Protein 5.1 g/dL (6.6-8.7) L 02/09/24 03:26 Albumin 3.8 g/dL (3.5-5.2) 02/09/24 03:26 Globulin 1.3 g/dL (1.3-4.6) 02/09/24 03:26 Triglycerides 51 mg/dL (0-150) 02/06/24 04:55 Cholesterol 172 mg/dL (0-200) 02/06/24 04:55 LDL Cholesterol, Calc 88 mg/dL (50-129) 02/06/24 04:55 HDL Cholesterol 74 mg/dL (60-100) 02/06/24 04:55 LDL/HDL Ratio 1.19 RATIO (0.00-3.22) 02/06/24 04:55 Cholesterol/HDL Ratio 2.32 mg/dL (0.0-4.40) 02/06/24 04:55 Procalcitonin 0.09 ng/mL (0-0.5) 02/05/24 13:18 TSH 0.71 uIU/mL (0.27-4.20) 02/06/24 04:55 Urine Color Dark yellow (Yellow) A 02/05/24 14:38 Urine Appearance Cloudy (CLEAR) A 02/05/24 14:38 Urine pH 7.0 (5-7) 02/05/24 14:38 Ur Specific [place] 1.018 (1.005-1.030) 02/05/24 14:38 Urine Protein 2+ (Negative) A 02/05/24 14:38 Urine Glucose (UA) Negative (Normal) 02/05/24 14:38 Urine Ketones Trace (Negative) 02/05/24 14:38 Urine Blood Negative (Negative) 02/05/24 14:38 Urine Nitrate Negative (Negative) 02/05/24 14:38 Urine Bilirubin Negative (Negative) 02/05/24 14:38 Urine Urobilinogen 1.0 mg/dL (Negative) 02/05/24 14:38 Ur Leukocyte Esterase Trace (Negative) A 02/05/24 14:38 Urine RBC 3-5 /hpf (0-2) 02/05/24 14:38 Urine WBC 0-5 /hpf (0-5) 02/05/24 14:38 Ur Squamous Epith Cells 0-5 /hpf (0-5) 02/05/24 14:38 Amorphous Sediment Not Reportable 02/05/24 14:38 Urine Bacteria None seen /hpf (NONE) 02/05/24 14:38 Hyaline Casts 3.71 /lpf 02/05/24 14:38 Coronavirus (PCR) Negative (Negative) 02/05/24 18:25 Influenza A (PCR) Negative (Negative) 02/05/24 18:25 Influenza Type B (PCR) Negative (Negative) 02/05/24 18:25 RSV (PCR) Negative (Negative) 02/05/24 18:25 Vitals Last Vital Signs Temp 97.7 F 02/09/24 08:00 Pulse 92 02/09/24 08:00 Resp 28 H 02/09/24 09:29 BP 134/94 02/09/24 08:00 Pulse Ox 92 02/09/24 09:29 O2 Del Method Nasal Cannula 02/09/24 08:00 O2 Flow Rate 4 02/09/24 08:00 FiO2 60 02/08/24 21:48 Discharge Plan Discharge Patient Disposition: Home Condition: Stable Prescriptions: New amiodarone [Pacerone] 200 mg Tablet See Rx Instructions .ROUTE .COMPLEX Qty: 60 0RF Rx Instructions: 2 tabs(400mg) a day for 7 days, then 1 tab daily azithromycin 250 mg Tablet 250 mg PO Q24H 3 Days Qty: 3 0RF prednisone 20 mg Tablet 40 mg PO DAILY 5 Days Qty: 10 0RF Continued metoprolol succinate 25 mg tablet extended release 24 hr 25 mg PO QAM Qty: 90 1RF (DME) TLSO See Rx Instructions .Route .MEDSUPPLY Qty: 1 0RF Rx Instructions: As directed lidocaine [Lidoderm] 5 % adhesive patch,medicated 1 patch TOPICAL DAILY PRN (Reason: Pain) Rx Instructions: put patch on in the am and remove in the evening (DME) Mobility scooter See Rx Instructions .Route .MEDSUPPLY Qty: 1 0RF Rx Instructions: As directed ipratropium-albuterol 0.5 mg-3 mg(2.5 mg base)/3 mL solution for nebulization 3 ml inhalation Q6H PRN (Reason: shortness of breath or wheezing) 90 Days Qty: 810 4RF furosemide 20 mg tablet 20 mg PO .every other day Qty: 90 3RF apixaban 5 mg tablet 5 mg PO BID Qty: 180 3RF isosorbide mononitrate 30 mg tablet extended release 24 hr 30 mg PO QAM Qty: 90 3RF diltiazem HCl 30 mg tablet 90 mg PO DIRECTED Qty: 270 2RF Rx Instructions: Take 60mg (2 tabs) in AM and 30mg (1 tab) in PM Brovana 15 mcg/2 mL solution for nebulization 2 ml inhalation BID Qty: 360 3RF budesonide [Pulmicort] 0.5 mg/2 mL suspension for nebulization 0.5 mg inhalation BID Qty: 360 3RF nitroglycerin 0.4 mg tablet, sublingual See Rx Instructions .ROUTE .COMPLEX Qty: 25 1RF Dose Instruction: DISSOLVE 1 TABLET UNDER THE TONGUE EVERY 5 MINUTES NEEDED FOR CHEST PAIN Rx Instructions: DISSOLVE 1 TABLET UNDER THE TONGUE EVERY 5 MINUTES NEEDED FOR CHEST PAIN diazepam 5 mg tablet 5 mg PO BID PRN (Reason: anxiety) Qty: 2 0RF Rx Instructions: Take one tab one hour before procedure, take one tab at time of procedure cyclobenzaprine 10 mg tablet 10 mg PO TID 7 Days Qty: 21 0RF Lipitor 10 mg tablet 10 mg PO .three times weekly ondansetron 8 mg tablet,disintegrating 8 mg PO QAM pantoprazole [Protonix] 40 mg tablet,delayed release (DR/EC) 40 mg PO QAM montelukast [Singulair] 10 mg tablet 10 mg PO QAM fluoxetine 20 mg capsule 60 mg PO QAM aripiprazole 2 mg tablet 2 mg PO QAM oxycodone 10 mg tablet 10 mg PO QID PRN (Reason: Pain) oxycodone [OxyContin] 30 mg tablet,oral only,ext.rel.12 hr 30 mg PO TID melatonin 10 mg Tablet 20 mg PO DAILY Metamucil 3.4 gram/5.4 gram Powder 1 tbsp PO DAILY PRN (Reason: Constipation) Rx Instructions: mix into at least 8 oz of water or juice before administering Held prednisone 10 mg tablet 20 mg PO DAILY Hold Instructions: Resume on 01/27/24. resume once steroid taper is completed Discontinued isosorbide mononitrate 60 mg tablet extended release 24 hr 60 mg PO QAM Qty: 90 3RF Rx Instructions: take with 30mg isosorbide mon. to equal 90mg Discharge Orders: Discharge Order (Routine); Ordered 02/09/24 Ordered By: David Mckeon Other Ambulatory Orders: DME: Wheelchair (Order) Location: None Selected Ordered By: David Mckeon Referrals: [facility] [place] [Outside] Ludin Schmitt MD [Primary Care Provider] - Discharge Diet: Cardiac Discharge Activity: Resume usual activity Patient Instructions: Opioid Safety Activity Restrictions/Additional Instructions: - If you have chest pain or palpitations please go to the emergency room Discharge Attestations Time Spent in Discharge Care*: greater than 30 min Quality Metrics Clinical Quality Measures [ No reported AMI, CVA or VTE this stay] Coding Level of Care Code 49071 Total time (in minutes) for Discharge: 45 Diagnoses Progressive pulmonary hypertension I27.20 Acute on chronic diastolic heart failure I50.33 Heart failure chronicity: acute on chronic Chronic anticoagulation Z79.01 Chronic hypoxic respiratory failure, on home oxygen therapy J96.11; Z99.81 Acute exacerbation of chronic obstructive airways disease J44.1 Acute respiratory failure with hypoxia and hypercapnia J96.01; J96.02 Low BMI Physical deconditioning R53.81 Protein calorie malnutrition E46
--- NOTE | 2024-02-09 13:24 | PC.NURSE ---
discharge instructions given and explained.pt verb understanding of instructions.discharged via w/c to exit at this time.spouse to drive pt home
== END 2024-02-09 13:25 | disposition home or self-care (01) | DRG 189 ==
LOC: ER 14:44 → MEDSURG 14:51 → CSU 02-08 10:46
PROVIDERS: Admitting Provider Family Medicine; Emergency Provider Emergency Medicine; PCP Internal Medicine; Visit Provider Family Medicine
DX: J96.21 Acute and chronic respiratory failure with hypoxia (principal); E43 Unspecified severe protein-calorie malnutrition; I50.33 Acute on chronic diastolic (congestive) heart failure; J44.1 Chronic obstructive pulmonary disease with (acute) exacerbation; Z68.1 Body mass index [BMI] 19.9 or less, adult; J96.22 Acute and chronic respiratory failure with hypercapnia; I27.20 Pulmonary hypertension, unspecified; K21.9 Gastro-esophageal reflux disease without esophagitis; E78.5 Hyperlipidemia, unspecified; I48.91 Unspecified atrial fibrillation; Z99.81 Dependence on supplemental oxygen; M41.9 Scoliosis, unspecified; F41.9 Anxiety disorder, unspecified; J43.1 Panlobular emphysema; G89.29 Other chronic pain; Z79.01 Long term (current) use of anticoagulants; Z86.718 Personal history of other venous thrombosis and embolism; Z87.891 Personal history of nicotine dependence; Z86.711 Personal history of pulmonary embolism
CPT/HCPCS: 0241U; 36415; 36600; 51702; 71045; 80048; 80051; 80053; 80061; 81001; 82330; 82805; 83605; 83735; 83880; 84100; 84145; 84443; 84484; 85025; 93005; 94640; 94660; 94664; 94762; 96374; 96376; 99291; A4222; J0283; J0456; J0696; J2060; J2270; J2405; J2919; J3490; J7050; J7512; J7613; J7626; Q0144